=== PATIENT | male | born 1965 ===

== ENCOUNTER → 2020-09-25 12:35 | Outpatient (BNVA) | payer SELFPAY | PROVIDERS: PCP Internal Medicine; Visit Provider Physician Assistant | DX: Z02.79 Encounter for issue of other medical certificate (principal) ==

== ENCOUNTER 2022-10-09 09:58 | Outpatient (AMB) | payer OTHER, SELFPAY ==
--- NOTE | 2022-10-09 10:14 | MHC.PC.OV ---
Vital Signs 10/09/22 10:16 Height 5 ft 9 in Weight 207 lb BMI 30.6 BP 114/62 Blood Pressure Location Lt brachial Position Sitting Pulse 83 Pulse Source Pulse Oximeter Pulse Oximetry (%) 96 Oxygen Delivery Method Room Air Intake Visit Reasons: Med review Intake Note: Patient is here to follow up on medication review. 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 Accompanied by: Self / Same As Patient Allergies penicillin V Allergy (Unknown, Verified 10/17/22 14:17) Itching Penicillins [PENICILLINS] Allergy (Unknown, Verified 10/17/22 14:17) ITCHING enalapril Adverse Reaction (Intermediate, Verified 10/17/22 14:17) headaches Medication List - Last Reconciled 10/17/22 by Rey Casiano MD aspirin (Adult Low Dose Aspirin) 81 mg PO DAILY blood sugar diagnostic As directed blood-glucose meter As directed enalapril maleate 20 mg PO DAILY hydrochlorothiazide 25 mg PO DAILY metformin 850 mg PO BID Tobacco use date assessed: 10/09/22 Dental Screening Dental Screen Date: 10/09/22 Did you have a dental visit in the last 12 months?: No Did you have a dental problem in the last 6 months where you did not have access to dental care?: No Was dental information given to patient?: Patient has dentist HPI Med review HPI Details 57-year-old male presents to the office for a follow-up on his blood pressure . He is compliant with medications and not reporting any side effects. Able to function and do all activities of daily living. Not compliant with diet or exercise. [facility] Medical History Chronic neck pain Diabetes mellitus Essential hypertension Surgical History History of hernia surgery Family History Mother Asthma High blood pressure Father Cancer Prostate cancer High blood pressure Social History Housing: House Alcohol intake: current Alcohol intake frequency: holidays/special occasions only Patient Tobacco Use Status: Never used Tobacco e-Cigarette/Vaping Use: Never Used Second Hand Smoke Exposure: No service: No Current occupational status: employed Cognitive needs: No Hearing needs: No Vision needs: Yes (Glasses) Questionnaire PHQ-9 Over the last 2 weeks, how often have you been bothered by any of the following problems? 1. Little interest or pleasure in doing things: not at all 2. Feeling down, depressed, or hopeless: not at all 3. Trouble falling or staying asleep, or sleeping too much: not at all 4. Feeling tired or having little energy: not at all 5. Poor appetite or overeating: not at all 6. Feeling bad about yourself - or that you are a failure or have let yourself or your family down: not at all 7. Trouble concentrating on things, such as reading the newspaper or watching television: not at all 8. Moving or speaking so slowly that other people could have noticed. Or the opposite - being so fidgety or restless that you have been moving around a lot more than usual: not at all 9. Thoughts that you would be better off or of hurting yourself in some way: not at all Total score: 0 Depression Screening Interpretation: Negative Source: Developed by Drs. Cas Lockett, Maggie Bradford, Felice Sr and colleagues, with an educational mansi from [employer]. Thrive Questionnaire Date Thrive assessed: 10/09/22 I am a: Patient What is your living situation today?: I have a steady place to live Within the past 12 months, did the food you bought not last and you didn't have the money to get more?: Never true Within the past 12 months, did you worry whether your food would run out before you got money to buy more?: Never true Do you have trouble paying for medicines?: No Do you have trouble getting transportation to medical appointments?: No Do you have trouble paying your heating and electricity bill?: No Do you have trouble taking care of your child, family member or friend?: No Do you have trouble with day-to-day activities such as bathing, preparing meals, shopping, managing finances, etc.?: No Are you currently unemployed and looking for a job?: No Are you interested in more education?: No Currently or been in a relationship where the following occur: no concerns reported AUDIT C Alcohol Use Questionnaire (AUDIT-C) 1. How often do you have a drink containing alcohol?: Monthly or less 2. How many drinks containing alcohol do you have on a typical day when you are drinking?: 1 or 2 Total Score: 1 CHRISTOPHER-7 AMB Questionnaire CHRISTOPHER-7 Date CHRISTOPHER - 7 assessed: 10/09/22 Feeling nervous, anxious, or on edge: 0 = Not at all Not being able to stop or control worryin = Not at all Worrying too much about different things: 0 = Not at all Trouble relaxin = Not at all Being so restless that it is hard to sit still: 0 = Not at all Becoming easily annoyed or irritable: 0 = Not at all Feeling afraid as if something awful might happen: 0 = Not at all Total CHRISTOPHER-7 score (0-4 normal; 5-9 mild; 10-14 moderate; 15-21 severe): 0 Source: Developed by Drs. Cas Lockett, Maggie Bradford, Felice Sr and colleagues, with an educational mansi from [employer]. Physical exam (Primary Care) Vital Signs: Last Vital Signs Pulse 83 10/09/22 10:16 BP 114/62 10/09/22 10:16 Pulse Ox 96 10/09/22 10:16 Oxygen Delivery Method Room Air 10/09/22 10:16 BMI result Body Mass Index 30.6 Tobacco/Smoking Status: Tobacco use Status Tobacco use date assessed 10/09/22 10/09/22 10:21 Patient Tobacco Use Status Never used Tobacco 10/09/22 10:21 e-Cigarette/Vaping Use Never Used 10/09/22 10:21 PHQ-9: PHQ-9 Score PHQ-9: Total score 0 10/09/22 10:21 Depression Screening Interpretation: Negative Thrive Assessment: Date of Thrive Assessment Date Thrive assessed 10/09/22 10/09/22 10:21 Currently or been in a relationship where the following occur: no concerns reported Const General: cooperative, healthy appearing and comfortable HENMT Head: Yes normal to inspection and Yes atraumatic Eyes General: appearance normal, both eyes and all related structures Neck Neck: Yes normal visual inspection and Yes full ROM Chest Chest palpation & inspection: normal inspection of the chest Resp Effort & Inspection: normal respiratory effort Auscultation: clear to auscultation bilaterally Cardio Jugular venous distension: no JVD Palpation: normal PMI Rate: regular rate Heart sounds: S1 normal heart sound present and S2 normal heart sound present GI Palpation (GI): Soft to palpation and No hepatosplenomegaly present Extrem General: Yes normal to inspection and Yes full ROM Results AMB Hemoglobin A1c AMB Hemoglobin A1c 6.3 % Last Edit by ANTHONY Mortensen on 10/09/22 10:36 Results Reviewed Results Reviewed: Laboratory Last Values Hgb A1c (Clinic) 6.3 % (4.0-6.0) H 10/09/22 10:22 Assessment and Plan Assessment & Plan (1) Diabetes mellitus: Code(s): E11.9 - Type 2 diabetes mellitus without complications Plan: Continue medications at same dosage. (2) Essential hypertension: Code(s): I10 - Essential (primary) hypertension Plan: Blood work has been ordered. Will call with results. Orders: Orders Basic Metabolic Panel 10/09/22 E11.9 - Type 2 diabetes mellitus without complications, I10 - Essential (primary) hypertension Complete Blood Count no Diff 10/09/22 E11.9 - Type 2 diabetes mellitus without complications, I10 - Essential (primary) hypertension Liver Panel 10/09/22 E11.9 - Type 2 diabetes mellitus without complications, I10 - Essential (primary) hypertension Lipid Panel 10/09/22 E11.9 - Type 2 diabetes mellitus without complications, I10 - Essential (primary) hypertension Thyroid Stimulating Hormone 10/09/22 E11.9 - Type 2 diabetes mellitus without complications, I10 - Essential (primary) hypertension Hemoglobin A1c 10/09/22 E11.9 - Type 2 diabetes mellitus without complications, I10 - Essential (primary) hypertension Microalbumin, Random (w Creat) 10/09/22 E11.9 - Type 2 diabetes mellitus without complications, I10 - Essential (primary) hypertension UA and rflx microscopic 10/09/22 E11.9 - Type 2 diabetes mellitus without complications, I10 - Essential (primary) hypertension AMB Hemoglobin A1c 10/09/22 E11.9 - Type 2 diabetes mellitus without complications Medications: New hydrochlorothiazide 25 mg PO DAILY 90 tabs 1RF Refilled enalapril maleate 20 mg PO DAILY 90 tabs 1RF metformin 850 mg PO BID 180 tabs 1RF Coding Level of Care Code Est Pt Level 3 (27400) Diagnoses Diabetes mellitus E11.9 Essential hypertension I10
[2022-10-09 10:16] VITALS: BP 114/62; PULSE 83; O2SAT 96; BMI 30.6
== END 2022-10-09 10:40 | disposition home or self-care (01) ==
PROVIDERS: Visit Provider Internal Medicine
DX: E11.9 Type 2 diabetes mellitus without complications (principal)
CPT/HCPCS: 83036; 99213

== ENCOUNTER 2022-10-09 10:51 | Outpatient (REF) | payer OTHER, SELFPAY | END 2022-10-09 10:52 | disposition home or self-care (01) | LOC: HO.LAB 10:51 | PROVIDERS: PCP Internal Medicine; Visit Provider Internal Medicine | DX: E11.9 Type 2 diabetes mellitus without complications (principal); I10 Essential (primary) hypertension | CPT/HCPCS: 36415; 80048; 80061; 80076; 81003; 82043; 83036; 84443; 85027 ==

== ENCOUNTER 2022-11-07 14:05 | Outpatient (AMB) | payer OTHER, SELFPAY ==
[2022-11-07 14:10] VITALS: BP 126/82; PULSE 74; O2SAT 96; BMI 30.4
--- NOTE | 2022-11-07 14:10 | MHC.PC.OV ---
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 Required: No Allergies penicillin V Allergy (Unknown, Verified 11/07/22 14:23) Itching Penicillins [PENICILLINS] Allergy (Unknown, Verified 11/07/22 14:23) ITCHING enalapril Adverse Reaction (Intermediate, Verified 11/07/22 14:23) headaches Medication List - Last Reconciled 11/07/22 by STIVEN Flood aspirin (Adult Low Dose Aspirin) 81 mg PO DAILY blood sugar diagnostic As directed blood-glucose meter As directed enalapril maleate 20 mg PO DAILY hydrochlorothiazide 25 mg PO DAILY metformin 850 mg PO BID Tobacco use date assessed: 11/07/22 Dental Screening Dental Screen Date: 11/07/22 Did you have a dental visit in the last 12 months?: No Did you have a dental problem in the last 6 months where you did not have access to dental care?: No HPI HPI Comments History of Present Illness Details 49-year-old male past medical history significant for diabetes mellitus, hypertension and chronic neck pain x 5 years. Patient presents today for transfer of care. Patient denies any acute concerns. Complete blood work obtained in October reviewed with patient. Hemoglobin A1c 6.1%. Patient reports he checks his blood sugar every morning in his sugars run 114-115. Blood pressure below goal today 126/82. [facility] Medical History Chronic neck pain Diabetes mellitus Essential hypertension Surgical History History of hernia surgery Family History Mother Asthma High blood pressure Father Cancer Prostate cancer High blood pressure Social History Housing: House Alcohol intake: current Alcohol intake frequency: holidays/special occasions only Patient Tobacco Use Status: Never used Tobacco e-Cigarette/Vaping Use: Never Used Second Hand Smoke Exposure: No service: No Current occupational status: employed Cognitive needs: No Hearing needs: No Vision needs: Yes (Glasses) Questionnaire PHQ-9 Over the last 2 weeks, how often have you been bothered by any of the following problems? 1. Little interest or pleasure in doing things: not at all 2. Feeling down, depressed, or hopeless: not at all 3. Trouble falling or staying asleep, or sleeping too much: not at all 4. Feeling tired or having little energy: not at all 5. Poor appetite or overeating: not at all 6. Feeling bad about yourself - or that you are a failure or have let yourself or your family down: not at all 7. Trouble concentrating on things, such as reading the newspaper or watching television: not at all 8. Moving or speaking so slowly that other people could have noticed. Or the opposite - being so fidgety or restless that you have been moving around a lot more than usual: not at all 9. Thoughts that you would be better off or of hurting yourself in some way: not at all Total score: 0 Depression Screening Interpretation: Negative Source: Developed by Drs. Cas Lockett, Maggie Bradford, Felice Sr and colleagues, with an educational mansi from [employer]. Thrive Questionnaire Date Thrive assessed: 10/09/22 I am a: Patient What is your living situation today?: I have a steady place to live Within the past 12 months, did the food you bought not last and you didn't have the money to get more?: Never true Within the past 12 months, did you worry whether your food would run out before you got money to buy more?: Never true Do you have trouble paying for medicines?: No Do you have trouble getting transportation to medical appointments?: No Do you have trouble paying your heating and electricity bill?: No Do you have trouble taking care of your child, family member or friend?: No Do you have trouble with day-to-day activities such as bathing, preparing meals, shopping, managing finances, etc.?: No Are you currently unemployed and looking for a job?: No Are you interested in more education?: No Currently or been in a relationship where the following occur: no concerns reported AUDIT C Alcohol Use Questionnaire (AUDIT-C) 1. How often do you have a drink containing alcohol?: Monthly or less 2. How many drinks containing alcohol do you have on a typical day when you are drinking?: 1 or 2 3. How often do you have six or more drinks on one occasion?: Never Total Score: 1 CHRISTOPHER-7 AMB Questionnaire CHRISTOPHER-7 Date CHRISTOPHER - 7 assessed: 11/07/22 Feeling nervous, anxious, or on edge: 1 = Several days Not being able to stop or control worryin = Several days Worrying too much about different things: 1 = Several days Trouble relaxin = Several days Being so restless that it is hard to sit still: 1 = Several days Becoming easily annoyed or irritable: 0 = Not at all Feeling afraid as if something awful might happen: 0 = Not at all Total CHRISTOPHER-7 score (0-4 normal; 5-9 mild; 10-14 moderate; 15-21 severe): 5 Source: Developed by Drs. Cas Lockett, Maggie Bradford, Felice Sr and colleagues, with an educational mansi from [employer]. Review of Systems Const Denies chills, Denies fatigue, Denies fever(s) and Denies poor appetite Eyes Denies no additional complaints ENT Reports Normal hearing present Card Denies chest pain, Denies syncope, Denies rapid heart rate and Denies dyspnea Resp Denies cough and Denies dyspnea GI Denies change in stool character, Denies constipation, Denies diarrhea, Denies nausea and Denies vomiting Denies dysuria, Denies urinary frequency and Denies urinary urgency Neuro Reports Normal hearing present, Denies confusion and Denies syncope Psych Denies confusion Endo Denies fatigue Physical exam (Primary Care) Vital Signs: Last Vital Signs Pulse 74 11/07/22 14:10 BP 126/82 11/07/22 14:10 Pulse Ox 96 11/07/22 14:10 Oxygen Delivery Method Room Air 11/07/22 14:10 BMI result Body Mass Index 30.4 Tobacco/Smoking Status: Tobacco use Status Tobacco use date assessed 11/07/22 11/07/22 14:11 Patient Tobacco Use Status Never used Tobacco 11/07/22 14:11 e-Cigarette/Vaping Use Never Used 11/07/22 14:11 PHQ-9: PHQ-9 Score PHQ-9: Total score 0 11/07/22 14:19 Depression Screening Interpretation: Negative Thrive Assessment: Date of Thrive Assessment Date Thrive assessed 10/09/22 11/07/22 14:11 Currently or been in a relationship where the following occur: no concerns reported Const General: No confusion Orientation/consciousness: No confusion HENMT Head: Yes normocephalic and Yes atraumatic Eyes Conjunctivae: conjunctivae normal Chest Chest palpation & inspection: normal inspection of the chest Resp Effort & Inspection: normal respiratory effort Auscultation: clear to auscultation bilaterally, no crackles, no rhonchi and no wheezes Cardio Rate: regular rate Rhythm: regular rhythm Heart sounds: S1 normal heart sound present and S2 normal heart sound present GI Inspection: Yes normal to inspection Neuro General: No confusion Cranial nerves: Yes Normal hearing present Extrem General: No edema Assessment and Plan Assessment & Plan (1) Diabetes mellitus: Code(s): E11.9 - Type 2 diabetes mellitus without complications Plan: Continue on metformin 850 mg b.i.d. Patient educated to decrease the amount of carbohydrate intake such as pasta, bread, rice and potatoes are all sugar in addition to the sweet stuff. Remember that fruits are good but they also have sugar.Hemoglobin A1c goal of less than 6.5% (2) Essential hypertension: Code(s): I10 - Essential (primary) hypertension Plan: Continue on hydrochlorothiazide 25 mg and enalapril 20 mg daily. Follow low-salt diet and exercise. Blood pressure goal less than 140/90. (3) Chronic neck pain: Code(s): M54.2 - Cervicalgia; G89.29 - Other chronic pain Plan: Patient reports has not any imaging completed of his neck offered x-ray of the C-spine and physical therapy. 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 Patient declined PT and xray at this time. Can take Tylenol or ibuprofen as needed for the pain. Plan Follow-up in 6 months. Please obtain fasting blood work prior to follow-up appointment. Orders: Orders Comprehensive [place]. Panel Fast 5 Months E11.9 - Type 2 diabetes mellitus without complications Hemoglobin A1c 5 Months E11.9 - Type 2 diabetes mellitus without complications Lipid Panel 5 Months E11.9 - Type 2 diabetes mellitus without complications TSH reflex Free T4 5 Months Z13.29 - Encounter for screening for other suspected endocrine disorder Complete Blood Count Auto Diff 5 Months Z13.0 - Encounter for screening for diseases of the blood and blood-forming organs and certain disorders involving the immune mechanism Coding Level of Care Code Est Pt Level 3 (78590) Diagnoses Diabetes mellitus E11.9 Essential hypertension I10 Chronic neck pain M54.2; G89.29
== END 2022-11-07 14:43 | disposition home or self-care (01) ==
PROVIDERS: PCP Internal Medicine; Visit Provider Nurse Practitioner Family
DX: E11.9 Type 2 diabetes mellitus without complications (principal); I10 Essential (primary) hypertension; M54.2 Cervicalgia; G89.29 Other chronic pain
CPT/HCPCS: 99213

== ENCOUNTER 2022-11-14 09:41 | Outpatient (REF) | payer OTHER, SELFPAY ==
--- NOTE | ~2022-11-14 | XR_ITS ---
EXAMINATION: XR CERVICAL SPINE CLINICAL INFORMATION: Cervicalgia. COMPARISON: Radiographs dated 10/25/2010. TECHNIQUE: Frontal, odontoid, lateral and swimmer's views of the cervical spine were obtained. FINDINGS: Vertebral body heights are normal. There is a slight cervical dextroscoliosis. At C3-C4, there is mild posterior disc space narrowing. At C5-C6, there is a 2 mm anterolisthesis. At C6-C7, there is moderate to marked disc space narrowing. No acute fracture or spondylolisthesis is seen. There is multi-level cervical spondylosis and facet arthropathy. The dens is intact. No prevertebral soft tissue swelling is seen. XR/XR cervical spine 2V IMPRESSION: There is multi-level cervical degenerative disc disease, spondylosis and facet arthropathy. Degenerative disc disease is most pronounced at C6-C7, where it is moderately severe.
== END 2022-11-14 09:42 | disposition home or self-care (01) ==
LOC: HO.XRAY 09:41
PROVIDERS: PCP Nurse Practitioner Family; Visit Provider Nurse Practitioner Family
DX: M54.2 Cervicalgia (principal); G89.29 Other chronic pain
CPT/HCPCS: 72040

== ENCOUNTER 2023-03-18 10:52 | Outpatient (AMB) | payer SELFPAY ==
[2023-03-18 11:44] VITALS: BP 122/70; PULSE 93; TEMP 36.3; O2SAT 96; BMI 30.6
--- NOTE | 2023-03-18 11:44 | MHC.OFFWIV ---
Intake Vital Signs 03/18/23 11:44 Height 5 ft 9 in Weight 207 lb BMI 30.6 BP 122/70 Blood Pressure Location Lt brachial Position Sitting Pulse 93 Pulse Source Pulse Oximeter Temp 97.3 F Temp Source Temporal Artery Scan Pulse Oximetry (%) 96 Oxygen Delivery Method Room Air Intake Visit Reasons: EST/dizzy and neck pressure (lobby masked) Intake Note: pt is here today for dizzy and neck pressure started thursday Patient Tobacco Use Status: Never used Tobacco Allergies penicillin V Allergy (Unknown, Verified 03/18/23 12:01) Itching Penicillins [PENICILLINS] Allergy (Unknown, Verified 03/18/23 12:01) ITCHING enalapril Adverse Reaction (Intermediate, Verified 03/18/23 12:01) headaches Medication List - Last Reconciled 03/18/23 by STIVEN Irwin- aspirin (Adult Low Dose Aspirin) 81 mg PO DAILY blood sugar diagnostic As directed blood-glucose meter As directed enalapril maleate 20 mg PO DAILY hydrochlorothiazide 25 mg PO DAILY metformin 850 mg PO BID Do you need a note to return to daycare/school/sports/work: Yes HPI HPI Comments History of Present Illness Details here today for acute on chronic neck pain described as pressure in back of neck that spreads to forehead this started on thursday alleviating factors: nothing did see pcp 11/2022 for this, xray done which showed: multi-level cervical degenerative disc disease, spondylosis and facet arthropathy. Degenerative disc disease is most pronounced at C6-C7, where it is moderately severe. rec for PT at that time, he declined as the pain did go away. [facility], [facility] Medical History Chronic neck pain Diabetes mellitus Essential hypertension Surgical History History of hernia surgery Family History Mother Asthma High blood pressure Father Cancer Prostate cancer High blood pressure Social History Housing: House Alcohol intake: current Alcohol intake frequency: holidays/special occasions only Patient Tobacco Use Status: Never used Tobacco e-Cigarette/Vaping Use: Never Used Second Hand Smoke Exposure: No service: No Current occupational status: employed Cognitive needs: No Hearing needs: No Vision needs: Yes (Glasses) Review of Systems Const All systems reviewed & are unremarkable except as noted in HPI and below Physical Exam Vital Signs: Last Vital Signs Temp 97.3 F 03/18/23 11:44 Pulse 93 03/18/23 11:44 BP 122/70 03/18/23 11:44 Pulse Ox 96 03/18/23 11:44 Oxygen Delivery Method Room Air 03/18/23 11:44 BMI result Body Mass Index 30.6 Const Orientation/consciousness: patient oriented x3 Neuro General: patient oriented x3, moves all extremities and no focal motor deficits Assessment & Plan Assessment & Plan (1) Chronic neck pain: Code(s): M54.2 - Cervicalgia; G89.29 - Other chronic pain Plan . Patient Instructions: discussed w/ patient xray from november and rec for PT he would like to be referred to [facility] [place] pain mgmt message sent to [facility] [place] wg front office to place this referral he was made aware Coding Level of Care Code Est Pt Level 3 (64052) Diagnoses Chronic neck pain M54.2; G89.29
== END 2023-03-18 12:50 | disposition home or self-care (01) ==
PROVIDERS: PCP Nurse Practitioner Family; Visit Provider Nurse Practitioner Family
DX: M54.2 Cervicalgia (principal); G89.29 Other chronic pain
CPT/HCPCS: 99213

== ENCOUNTER 2023-04-17 13:54 | Outpatient (AMB) | payer OTHER, SELFPAY ==
[2023-04-17 14:11] VITALS: BP 138/81; PULSE 113; RESP 18; O2SAT 97; BMI 30.8
--- NOTE | 2023-04-17 14:11 | MHC.OFFVIS ---
Intake Vital Signs 04/17/23 14:11 Height 5 ft 9 in Weight 208 lb 8 oz BMI 30.8 BP 138/81 Blood Pressure Location Lt brachial Position Sitting Respiration 18 Pulse 113 H Pulse Source Pulse Oximeter Pulse Oximetry (%) 97 Oxygen Delivery Method Room Air Intake Visit Reasons: Spondylosis wo myelopathy or radiculopathy Allergies penicillin V Allergy (Unknown, Verified 04/17/23 14:01) Itching Penicillins [PENICILLINS] Allergy (Unknown, Verified 04/17/23 14:01) ITCHING enalapril Adverse Reaction (Intermediate, Verified 04/17/23 14:01) headaches HPI HPI Comments History of Present Illness Details Rahul is a very pleasant 57 year old male who presents to the office today for evaluation and management of his chronic cervical neck pain. Patient reports he has been suffering with midline neck pain, worse with ROM of the neck, for appprox 3 years. He denies inciting injury or trauma to the neck. Denies radiation of the pain down either arm. Denies numbness, tingling, shooting pain to either arm. Patient currently rates pain as 7/10, constant throughout the day and night. He is not taking any medications for the pain, OTC or prescribed other than application of topical salonpas patches which help a little . He has not attempted PT, chiropractic manipulation, acupuncture or massage. In terms of muscle damage condition is described as squeezing, pressure. Pain is negatively impacting patients general activity, work, sleep and activities of daily living. Recent Xray reviewed, results as per below. Patient with NIDDM, 10/09/2022. A1c 6.3% [facility] Medical History Chronic neck pain Diabetes mellitus Essential hypertension Surgical History History of hernia surgery Family History Mother Asthma High blood pressure Father Cancer Prostate cancer High blood pressure Social History Housing: House Alcohol intake: current Alcohol intake frequency: holidays/special occasions only Patient Tobacco Use Status: Never used Tobacco e-Cigarette/Vaping Use: Never Used Second Hand Smoke Exposure: No service: No Current occupational status: employed Cognitive needs: No Hearing needs: No Vision needs: Yes (Glasses) Review of Systems Const All systems reviewed & are unremarkable except as noted in HPI and below Physical Exam Vital Signs: Last Vital Signs Pulse 113 H 04/17/23 14:11 Resp 18 04/17/23 14:11 BP 138/81 04/17/23 14:11 Pulse Ox 97 04/17/23 14:11 Oxygen Delivery Method Room Air 04/17/23 14:11 BMI result Body Mass Index 30.8 General: awake, alert, oriented. Answers questions appropriately. Fully engaged in examination. Skin: warm, dry, intact HEENT: Normocephalic. Hearing intact. Cardiac: External chest normal in appearance. Respiratory: No cough, audible wheezing or stridor. Abdomen: without gross distension. MS: No obvious swelling or deformities. Cervical Spine: Visible inspection without gross abnormality Nontender to palpation over paraspinal muscles Minimally tender to palpation over midline cervical vertebrae Decreased cervical ROM in all planes with moderate pain with extension Spurling compression test positive Elvey's tension test negative Lhermitte's test negative. BUE strength 5/5 DTR symmetrical and intact bilaterally. 2+ radial pulses. Neurological: Oriented to person, place, time and situation. Thought process intact. No gait abnormalities appreciated. Psychiatric: Appropriate mood and affect. Good judgment and insight. Results Reviewed Results Reviewed: 11/14/2022 XR/XR cervical spine 2V FINDINGS: Vertebral body heights are normal. There is a slight cervical dextroscoliosis. At C3-C4, there is mild posterior disc space narrowing. At C5-C6, there is a 2 mm anterolisthesis. At C6-C7, there is moderate to marked disc space narrowing. No acute fracture or spondylolisthesis is seen. There is multi-level cervical spondylosis and facet arthropathy. The dens is intact. No prevertebral soft tissue swelling is seen. IMPRESSION: There is multi-level cervical degenerative disc disease, spondylosis and facet arthropathy. Degenerative disc disease is most pronounced at C6-C7, where it is moderately severe. Assessment & Plan Assessment & Plan (1) Cervical spondylosis: Code(s): M47.812 - Spondylosis without myelopathy or radiculopathy, cervical region (2) Chronic neck pain: Code(s): M54.2 - Cervicalgia; G89.29 - Other chronic pain Plan Rahul is a very pleasant 57 year old male who presented to the office today for evaluation and management of his chronic neck pain. Patient suffering with axial pain secondary to cervical spondylosis/facet arthropathy. Order placed for PT eval and treat Tylenol arthritis 650mg po Q8H as needed Lidocaine 5% topical patches, apply to most painful area, on for 12 hours off for 12 hours. Discussed options for treatment including diagnostic interventional testing, epidural steroid injections, peripheral nerve stimulation with Sprint, RFA and more permanent neuromodulation. If pain persists after PT will plan for Fluoroscopy guided diagnostic bilateral C5 C6 C7 MBBS with local anesthetic. All questions and concerns have been answered and patient agrees with the plan. Follow up after PT, sooner if needed. Orders: Orders PT Evaluation and Treatment Today G89.29 - Other chronic pain, M47.812 - Spondylosis without myelopathy or radiculopathy, cervical region, M54.2 - Cervicalgia Medications: New acetaminophen ER (Tylenol Arthritis Pain) no to exceed three tabs daily. 650 mg PO Q8H PRN 90 tabs 0RF pain lidocaine 5% leave on most painful area for up to 12 hrs 1 patch topical DAILY 30 ea 3RF Coding Level of Care Code New Pt Level 4 (64383) Diagnoses Cervical spondylosis M47.812 Chronic neck pain M54.2; G89.29
== END 2023-04-17 14:26 | disposition home or self-care (01) ==
PROVIDERS: PCP Nurse Practitioner Family; Visit Provider Registered Nurse Emergency
DX: M47.812 Spondylosis without myelopathy or radiculopathy, cervical region (principal); M54.2 Cervicalgia; G89.29 Other chronic pain
CPT/HCPCS: 99204

== ENCOUNTER → 2023-04-17 13:54 | Outpatient (BNVA) | payer OTHER, SELFPAY | PROVIDERS: PCP Nurse Practitioner Family; Visit Provider Registered Nurse Emergency | DX: M47.812 Spondylosis without myelopathy or radiculopathy, cervical region (principal); G89.29 Other chronic pain; M54.2 Cervicalgia | CPT/HCPCS: 99202 ==

== ENCOUNTER 2023-05-15 13:03 | Outpatient (AMB) | payer OTHER, SELFPAY ==
--- NOTE | 2023-05-15 13:09 | A.OFFPC_ITS ---
Vital Signs 05/15/23 13:13 Height 5 ft 9 in Weight 212 lb 4 oz BMI 31.3 BP 140/60 H Blood Pressure Location Lt brachial Position Sitting Pulse 117 H Pulse Source Pulse Oximeter Pulse Oximetry (%) 97 Oxygen Delivery Method Room Air Intake Visit Reasons: DM, HTN, chronic neck pain Intake Note: Patient is here to follow up on DM, HTN, Chronic neck pain. 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 Accompanied by: Self / Same As Patient Allergies penicillin V Allergy (Unknown, Verified 05/15/23 13:31) Itching Penicillins [PENICILLINS] Allergy (Unknown, Verified 05/15/23 13:31) ITCHING Medication List - Last Reconciled 05/15/23 by AMY Irwin acetaminophen ER (Tylenol Arthritis Pain) 650 mg PO Q8H PRN aspirin (Adult Low Dose Aspirin) 81 mg PO DAILY blood sugar diagnostic As directed blood-glucose meter As directed enalapril maleate 20 mg PO DAILY hydrochlorothiazide 25 mg PO DAILY lidocaine 5% 1 patch topical DAILY metformin 850 mg PO BID Tobacco use date assessed: 05/15/23 Dental Screening Dental Screen Date: 05/15/23 Did you have a dental visit in the last 12 months?: No Did you have a dental problem in the last 6 months where you did not have access to dental care?: No Was dental information given to patient?: Patient has dentist HPI HPI Comments History of Present Illness Details 58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 Colonoscopy: maybe needs referral, he thinks he has had a colonoscopy at [facility]. I can not find the consult note from GI or the colonoscopy report. Therefore a new referral will be placed as use turning 59 next May. Specialists: Pain Mgmt [facility] Medical History Chronic neck pain Diabetes mellitus Essential hypertension Surgical History History of hernia surgery Family History Mother Asthma High blood pressure Father Cancer Prostate cancer High blood pressure Social History Housing: House Alcohol intake: current Alcohol intake frequency: holidays/special occasions only Patient Tobacco Use Status: Never used Tobacco e-Cigarette/Vaping Use: Never Used Second Hand Smoke Exposure: No service: No Current occupational status: employed Cognitive needs: No Hearing needs: No Vision needs: Yes (Glasses) Questionnaire PHQ-9 Over the last 2 weeks, how often have you been bothered by any of the following problems? 1. Little interest or pleasure in doing things: not at all 2. Feeling down, depressed, or hopeless: not at all 3. Trouble falling or staying asleep, or sleeping too much: not at all 4. Feeling tired or having little energy: not at all 5. Poor appetite or overeating: not at all 6. Feeling bad about yourself - or that you are a failure or have let yourself or your family down: not at all 7. Trouble concentrating on things, such as reading the newspaper or watching television: not at all 8. Moving or speaking so slowly that other people could have noticed. Or the opposite - being so fidgety or restless that you have been moving around a lot more than usual: not at all 9. Thoughts that you would be better off or of hurting yourself in some way: not at all Total score: 0 Depression Screening Interpretation: Negative Depression Screening Done: Yes 58658 - PHQ-9 Billing: Yes Source: Developed by Drs. Cas Lockett, Maggie Bradford, Felice Sr and colleagues, with an educational mansi from [employer]. Thrive Questionnaire Date Thrive assessed: 05/15/23 I am a: Patient What is your living situation today?: I have a steady place to live Within the past 12 months, did the food you bought not last and you didn't have the money to get more?: Never true Within the past 12 months, did you worry whether your food would run out before you got money to buy more?: Never true Do you have trouble paying for medicines?: No Do you have trouble getting transportation to medical appointments?: No Do you have trouble paying your heating and electricity bill?: No Do you have trouble taking care of your child, family member or friend?: No Do you have trouble with day-to-day activities such as bathing, preparing meals, shopping, managing finances, etc.?: No Are you currently unemployed and looking for a job?: No Are you interested in more education?: No Currently or been in a relationship where the following occur: no concerns reported THRIVE Score: 0 AUDIT C Alcohol Use Questionnaire (AUDIT-C) 1. How often do you have a drink containing alcohol?: Monthly or less 2. How many drinks containing alcohol do you have on a typical day when you are drinking?: 1 or 2 Total Score: 1 Score Reviewed/Action Taken: Yes CHRISTOPHER-7 AMB Questionnaire CHRISTOPHER-7 Date CHRISTOPHER - 7 assessed: 05/15/23 Feeling nervous, anxious, or on edge: 0 = Not at all Not being able to stop or control worryin = Not at all Worrying too much about different things: 0 = Not at all Trouble relaxin = Not at all Being so restless that it is hard to sit still: 0 = Not at all Becoming easily annoyed or irritable: 0 = Not at all Feeling afraid as if something awful might happen: 0 = Not at all Total CHRISTOPHER-7 score (0-4 normal; 5-9 mild; 10-14 moderate; 15-21 severe): 0 Source: Developed by Drs. Cas Lockett, Maggie Bradford, Felice Sr and colleagues, with an educational mansi from [employer]. CHRISTOPHER-7 Assessment Billing CHRISTOPHER-7 Assessment Tool: CHRISTOPHER-7 Assessment 47737 Review of Systems Const All systems reviewed & are unremarkable except as noted in HPI and below Physical exam (Primary Care) Vital Signs: Last Vital Signs Pulse 117 H 05/15/23 13:13 BP 140/60 H 05/15/23 13:13 Pulse Ox 97 05/15/23 13:13 Oxygen Delivery Method Room Air 05/15/23 13:13 BMI result Body Mass Index 31.3 BMI Assessment/Plan discussion: High BMI High, discussed plan: lifestyle Tobacco/Smoking Status: Tobacco use Status Tobacco use date assessed 05/15/23 05/15/23 13:12 Patient Tobacco Use Status Never used Tobacco 05/15/23 13:12 e-Cigarette/Vaping Use Never Used 05/15/23 13:12 PHQ-9: PHQ-9 Score PHQ-9: Total score 0 05/15/23 14:06 Depression Screening Interpretation: Negative Thrive Assessment: Date of Thrive Assessment Date Thrive assessed 05/15/23 05/15/23 13:12 Currently or been in a relationship where the following occur: no concerns reported Const Other: Awake alert oriented very pleasant Sclera is nonicteric Mucous membranes moist Regular rate and rhythm Lung sounds clear auscultation Bilateral lower extremities without edema, skin intact, pedal pulses within normal limits bilat, normal monofilament and vibratory sensations bilat Office Procedures Diabetic Foot Exam G9226 - Diabetic Foot Exam Results AMB Hemoglobin A1c AMB Hemoglobin A1c 6.9 % Last Edit by ANTHONY Mortensen on 05/15/23 13:38 Immunizations Boostrix Tdap 2.5 Lf unit-8 mcg-5 Lf/0.5 mL intramuscular syringe Performing Provider: DAI Irwin Performing Location: [facility] Administered by: Yanelis Redding CMA on 05/15/23 14:29 Dose Route Admin Location Dispensed Lot Number Expiration Date NDC City Supervisor 0.5 mL IM Left Deltoid 0.5 mL [id number] 03/11/25 [id number] [employer] VIS Given Date VIS Provided VIS Publication Date 05/15/23 Single Vaccine 20 Eligibility Eligibility Date Funding Source Not [facility] Eligible 05/15/23 Private Results Reviewed Results Reviewed: Laboratory Last Values Hgb A1c (Clinic) 6.9 % (4.0-6.0) H 05/15/23 13:12 Assessment and Plan Assessment & Plan (1) Hyperlipidemia associated with type 2 diabetes mellitus: Comment: Not currently on a statin. LDL goal is less than 70. We will repeat labs and bring him back to discuss this Code(s): E11.69 - Type 2 diabetes mellitus with other specified complication; E78.5 - Hyperlipidemia, unspecified (2) Diabetes mellitus type 2 with complications: Comment: HGB A1c 6.9% today which is up trending over the last year. He is maintained on metformin 850 p.o. b.i.d.. At this time we will continue him on this. Diabetic eye exam - done at [facility] in [place], [place]. May need to place a new referral. We will continue to follow On an Acei for renal protection Tdap today. Declines flu. Code(s): E11.8 - Type 2 diabetes mellitus with unspecified complications (3) Hypertension associated with type 2 diabetes mellitus: Comment: Goal of less than 130/80. His blood pressure is elevated above his goal today and this is even with recheck he is maintained on enalapril 20 mg which he states he is taking as directed. He monitors his blood pressure twice a day at home with a home cuffand reports that it is always within normal limits. The plan will be to have him continue his enalapril at the current dose, monitor his blood pressure twice a day and bring a log with him to his next visit in 2 weeks for me to review with him. Code(s): E11.59 - Type 2 diabetes mellitus with other circulatory complications; I15.2 - Hypertension secondary to endocrine disorders (4) Cervical spondylosis with radiculopathy: Comment: Followed by [facility] pain management currently and PT Code(s): M47.22 - Other spondylosis with radiculopathy, cervical region (5) Screening PSA (prostate specific antigen): Code(s): Z12.5 - Encounter for screening for malignant neoplasm of prostate Plan This note is constructed using voice recognition software. While every effort has been made to ensure accuracy in product manager financial services, still errors may have been included Sometimes, these errors may affect the content or meaning of the given sentence . Total time spent caring for the patient today was 60 minutes. This includes time spent before the visit reviewing the chart, time spent during the visit, and time spent after the visit on documentation Orders: Orders AMB Hemoglobin A1c Today E11.9 - Type 2 diabetes mellitus without complications Lipid Panel Today E11.59 - Type 2 diabetes mellitus with other circulatory complications, E11.69 - Type 2 diabetes mellitus with other specified complication, E11.8 - Type 2 diabetes mellitus with unspecified complications, E78.5 - Hyperlipidemia, unspecified, I15.2 - Hypertension secondary to endocrine disorders, M47.22 - Other spondylosis with radiculopathy, cervical region, Z12.5 - Encounter for screening for malignant neoplasm of prostate Vitamin B12 and Folate Today E11.59 - Type 2 diabetes mellitus with other circulatory complications, E11.69 - Type 2 diabetes mellitus with other specified complication, E11.8 - Type 2 diabetes mellitus with unspecified complications, E78.5 - Hyperlipidemia, unspecified, I15.2 - Hypertension secondary to endocrine disorders, M47.22 - Other spondylosis with radiculopathy, cervical region, Z12.5 - Encounter for screening for malignant neoplasm of prostate Complete Blood Count no Diff Today E11.59 - Type 2 diabetes mellitus with other circulatory complications, E11.69 - Type 2 diabetes mellitus with other specified complication, E11.8 - Type 2 diabetes mellitus with unspecified complications, E78.5 - Hyperlipidemia, unspecified, I15.2 - Hypertension secondary to endocrine disorders, M47.22 - Other spondylosis with radiculopathy, cervical region, Z12.5 - Encounter for screening for malignant neoplasm of prostate PSA, Ultra Sensitive Today E11.59 - Type 2 diabetes mellitus with other circulatory complications, E11.69 - Type 2 diabetes mellitus with other specified complication, E11.8 - Type 2 diabetes mellitus with unspecified complications, E78.5 - Hyperlipidemia, unspecified, I15.2 - Hypertension secondary to endocrine disorders, M47.22 - Other spondylosis with radiculopathy, cervical region, Z12.5 - Encounter for screening for malignant neoplasm of prostate Comprehensive [place]. Panel Fast Today E11.59 - Type 2 diabetes mellitus with other circulatory complications, E11.69 - Type 2 diabetes mellitus with other specified complication, E11.8 - Type 2 diabetes mellitus with unspecified complications, E78.5 - Hyperlipidemia, unspecified, I15.2 - Hypertension secondary to endocrine disorders, M47.22 - Other spondylosis with radiculopathy, cervical region, Z12.5 - Encounter for screening for malignant neoplasm of prostate Microalbumin, Random (w Creat) Today E11.59 - Type 2 diabetes mellitus with other circulatory complications, E11.69 - Type 2 diabetes mellitus with other specified complication, E11.8 - Type 2 diabetes mellitus with unspecified complications, E78.5 - Hyperlipidemia, unspecified, I15.2 - Hypertension secondary to endocrine disorders, M47.22 - Other spondylosis with radiculopathy, cervical region, Z12.5 - Encounter for screening for malignant neoplasm of prostate TSH reflex Free T4 Today E11.59 - Type 2 diabetes mellitus with other circulatory complications, E11.69 - Type 2 diabetes mellitus with other specified complication, E11.8 - Type 2 diabetes mellitus with unspecified complications, E78.5 - Hyperlipidemia, unspecified, I15.2 - Hypertension secondary to endocrine disorders, M47.22 - Other spondylosis with radiculopathy, cervical region, Z12.5 - Encounter for screening for malignant neoplasm of prostate AMB Diabetic Foot Exam Today E11.8 - Type 2 diabetes mellitus with unspecified complications TDaP Immunization Today Z23 - Encounter for immunization Referrals Gastroenterology Referral Z12.11 - Encounter for screening for malignant neoplasm of colon Review Flu Vaccine not done: patient reason Coding Level of Care Code Est Pt Level 5 (98996) Diagnoses Hyperlipidemia associated with type 2 diabetes mellitus E11.69; E78.5 Diabetes mellitus type 2 with complications E11.8 Hypertension associated with type 2 diabetes mellitus E11.59; I15.2 Cervical spondylosis with radiculopathy M47.22 Screening PSA (prostate specific antigen) Z12.5 CPT Codes Diabetic Foot Exam - CPT: G9226 - Diabetic Foot Exam ([id number]) Additional Codes CHRISTOPHER-7 Assessment Billing - CHRISTOPHER-7 Assessment Tool: CHRISTOPHER-7 Assessment [id number] ([id number])
[2023-05-15 13:13] VITALS: BP 140/60; PULSE 117; O2SAT 97; BMI 31.3
== END 2023-05-15 14:37 | disposition home or self-care (01) ==
PROVIDERS: PCP Nurse Practitioner Family; Visit Provider Nurse Practitioner Family
DX: E11.69 Type 2 diabetes mellitus with other specified complication (principal); E11.8 Type 2 diabetes mellitus with unspecified complications; E11.59 Type 2 diabetes mellitus with other circulatory complications; Z23 Encounter for immunization; E78.5 Hyperlipidemia, unspecified; I15.2 Hypertension secondary to endocrine disorders; M47.22 Other spondylosis with radiculopathy, cervical region; Z12.5 Encounter for screening for malignant neoplasm of prostate
CPT/HCPCS: 83036; 90471; 90715; 99215; G9226

== ENCOUNTER 2023-05-16 08:59 | Outpatient (REF) | payer OTHER, SELFPAY ==
[2023-05-16 10:19] LABS: Hematocrit 45.7 % (42.0-52.0); Hemoglobin 15.2 g/dl (14.0-18.0); Mean Corpuscular HGB Conc 33.3 g/dl (31.0-36.0); Mean Corpuscular Hemoglobin 29.9 pg (27.0-33.0); Mean Corpuscular Volume 89.8 fL (80.0-98.0); Mean Platelet Volume 11.9 fL (9.4-12.4); Platelet Count 255 X10*3/uL (160-400); Red Blood Count 5.09 X10*6/uL (4.60-5.80); Red Cell Distribution Width 12.8 % (11.0-16.0); White Blood Count 7.1 X10*3/uL (4.8-10.8)
[2023-05-16 10:38] LABS: Alanine Aminotransferase 39 U/L (0-40); Albumin Level 4.5 g/dL (3.5-5.0); Alkaline Phosphatase 79 U/L (39-117); Anion Gap 12 (12-20); Aspartate Amino Transferase 22 U/L (5-37); Bilirubin Total 0.5 mg/dL (0.0-1.0); Blood Urea Nitrogen 9 mg/dL (9-16); Calcium 9.6 mg/dL (8.4-10.2); Carbon Dioxide 26 mmol/L (22-29); Chloride 104 mmol/L (96-108); Cholesterol 189 mg/dL (<200); Estimated Glomerular Filt Rate > 60; Glucose Fasting 137 mg/dL (60-99); HDL Cholesterol 34 mg/dL (>40); LDL Cholesterol Calculated 89 mg/dL (<100); Potassium 4.1 mmol/L (3.3-5.1); Sodium 138 mmol/L (135-145); Triglycerides 333 mg/dL (<150)
[2023-05-16 10:53] LABS: TSH reflex Free T4 0.77 uIU/mL (0.32-4.0)
[2023-05-16 11:26] LABS: Folate 15.5 ng/mL (> or = 4.0); Vitamin B12 259 pg/mL (200-900)
[2023-05-16 11:31] LABS: Creatinine Urine 131.34 mg/dL; Microalbum/Creatinine Ratio Ur 8.3 ug/mg cr (<30)
[2023-05-20 18:59] LABS: PSA, Ultra Sensitive 2.64 ng/mL
== END 2023-05-16 09:00 | disposition home or self-care (01) ==
LOC: HO.LAB 08:59
PROVIDERS: PCP Nurse Practitioner Family; Visit Provider Nurse Practitioner Family
DX: M47.22 Other spondylosis with radiculopathy, cervical region (principal); E11.59 Type 2 diabetes mellitus with other circulatory complications; I15.2 Hypertension secondary to endocrine disorders; E11.8 Type 2 diabetes mellitus with unspecified complications; E11.69 Type 2 diabetes mellitus with other specified complication; E78.5 Hyperlipidemia, unspecified; Z12.5 Encounter for screening for malignant neoplasm of prostate
CPT/HCPCS: 36415; 80053; 80061; 82043; 82570; 82607; 82746; 84153; 84443; 85027

== ENCOUNTER 2023-05-29 14:57 | Outpatient (AMB) | payer OTHER, SELFPAY ==
--- NOTE | 2023-05-29 15:03 | MHC.PC.OV ---
Vital Signs 05/29/23 15:04 Height 5 ft 9 in Weight 213 lb BMI 31.5 BP 137/72 Blood Pressure Location Rt brachial Position Sitting Respiration 14 Pulse 75 Pulse Source Pulse Oximeter Temp 98.2 F Temp Source Temporal Artery Scan Pulse Oximetry (%) 96 Oxygen Delivery Method Room Air Intake Visit Reasons: 2 weeks 30min, fu HTN and Labs Intake Note: Patient is here to follow up on blood pressure and labs. Patient reports he has a home log of blood pressures. Agent Ticketing Gate Required: No Accompanied by: Self / Same As Patient Allergies penicillin V Allergy (Unknown, Verified 05/29/23 15:17) Itching Penicillins [PENICILLINS] Allergy (Unknown, Verified 05/29/23 15:17) ITCHING Medication List - Last Reconciled 05/29/23 by AMY Irwin acetaminophen ER (Tylenol Arthritis Pain) 650 mg PO Q8H PRN aspirin (Adult Low Dose Aspirin) 81 mg PO DAILY blood sugar diagnostic As directed blood-glucose meter As directed enalapril maleate 20 mg PO DAILY hydrochlorothiazide 25 mg PO DAILY lidocaine 5% 1 patch topical DAILY metformin 850 mg PO BID Tobacco use date assessed: 05/15/23 HPI HPI Comments History of Present Illness Details 58 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 Colonoscopy: 2014 Dr Reed, 5 year recall, overdue (2019), referral placed 05/2023 Specialists: Pain Mgmt Here today to follow up on chronic conditions. Labs from 05/16/2023 show a normal CBC, normal CMP, elevated triglycerides at 333, normal total cholesterol 189, LDL mildly elevated at 89, HDL low at 34, normal PSA, low normal vitamin B12 at 259, normal TSH, normal urine microalbumin. At last visit his blood pressure was elevated. He has been monitoring his BP at home. Log reviewed. SBP > 140 highest 160. DBP 70-90. [facility] Medical History (Updated 05/29/23 @ 15:40 by AMY Irwin) Chronic neck pain Diabetes mellitus Essential hypertension Surgical History History of hernia surgery Family History Mother Asthma High blood pressure Father Cancer Prostate cancer High blood pressure Social History Housing: House Alcohol intake: current Alcohol intake frequency: holidays/special occasions only Patient Tobacco Use Status: Never used Tobacco e-Cigarette/Vaping Use: Never Used Second Hand Smoke Exposure: No service: No Current occupational status: employed Cognitive needs: No Hearing needs: No Vision needs: Yes (Glasses) Questionnaire PHQ-9 Over the last 2 weeks, how often have you been bothered by any of the following problems? Depression Screening Interpretation: Negative Depression Screening Done: Yes Source: Developed by Drs. Cas Lockett, Maggie Bradford, Felice Sr and colleagues, with an educational mansi from [employer]. Thrive Questionnaire Date Thrive assessed: 05/15/23 Currently or been in a relationship where the following occur: no concerns reported THRIVE Score: 0 CHRISTOPHER-7 AMB Questionnaire CHRISTOPHER-7 Date CHRISTOPHER - 7 assessed: 05/15/23 Source: Developed by Drs. Cas Lockett, Maggie Bradford, Felice Sr and colleagues, with an educational mansi from [employer]. Physical exam (Primary Care) Vital Signs: Last Vital Signs Temp 98.2 F 05/29/23 15:04 Pulse 75 05/29/23 15:04 Resp 14 05/29/23 15:04 BP 137/72 05/29/23 15:04 Pulse Ox 96 05/29/23 15:04 Oxygen Delivery Method Room Air 05/29/23 15:04 BMI result Body Mass Index 31.5 BMI Assessment/Plan discussion: High BMI High, discussed plan: lifestyle Tobacco/Smoking Status: Tobacco use Status Tobacco use date assessed 05/15/23 05/29/23 15:11 Patient Tobacco Use Status Never used Tobacco 05/29/23 15:11 e-Cigarette/Vaping Use Never Used 05/29/23 15:11 Depression Screening Interpretation: Negative Thrive Assessment: Date of Thrive Assessment Date Thrive assessed 05/15/23 05/29/23 15:11 Currently or been in a relationship where the following occur: no concerns reported Const Other: Awake alert oriented very pleasant Sclera is nonicteric Mucous membranes moist Regular rate and rhythm Lung sounds clear auscultation Bilateral lower extremities without edema, skin intact, pedal pulses within normal limits bilat, normal monofilament and vibratory sensations bilat Assessment and Plan Assessment & Plan (1) Hypertension associated with type 2 diabetes mellitus: Comment: Goal of less than 130/80. Not at goal today or on home log plan: Increase enalapril from 20mg/day to 30mg/day. cont HCTZ 25 mg QD, monitor his blood pressure twice a day and bring a log with him to his next visit in 1-2 weeks for me to review with him. Code(s): E11.59 - Type 2 diabetes mellitus with other circulatory complications; I15.2 - Hypertension secondary to endocrine disorders (2) Diabetes mellitus type 2 with complications: Comment: HGB A1c 6.9% today which is up trending over the last year. He is maintained on metformin 850 p.o. b.i.d.. At this time we will continue him on this. His B12 was noted to be on the low end of normal at 259 on labs May 2023. Given that he is on metformin we will start him on B12 sublingual a 1000 mcg q.day. We will recheck this level in 3 months. Diabetic eye exam - done at [facility] in [place], [place]. May need to place a new referral. We will continue to follow On an Acei for renal protection Tdap 05/2023. Declines flu. Code(s): E11.8 - Type 2 diabetes mellitus with unspecified complications (3) Hyperlipidemia associated with type 2 diabetes mellitus: Comment: plan: Start atorvastatin 40mg QHS, LDL goal is less than 70. We will repeat labs and bring him back to discuss this in 3 months Code(s): E11.69 - Type 2 diabetes mellitus with other specified complication; E78.5 - Hyperlipidemia, unspecified Plan: This note is constructed using voice recognition software. While every effort has been made to ensure accuracy in artillery meteorological man, still errors may have been included Sometimes, these errors may affect the content or meaning of the given sentence . Total time spent caring for the patient today was 30 minutes. This includes time spent before the visit reviewing the chart, time spent during the visit, and time spent after the visit on documentation Orders: Orders Vitamin B12 3 Months E11.59 - Type 2 diabetes mellitus with other circulatory complications, E11.69 - Type 2 diabetes mellitus with other specified complication, E11.8 - Type 2 diabetes mellitus with unspecified complications, E78.5 - Hyperlipidemia, unspecified, I15.2 - Hypertension secondary to endocrine disorders Comprehensive Brant. Panel Fast 3 Months E11.59 - Type 2 diabetes mellitus with other circulatory complications, E11.69 - Type 2 diabetes mellitus with other specified complication, E11.8 - Type 2 diabetes mellitus with unspecified complications, E78.5 - Hyperlipidemia, unspecified, I15.2 - Hypertension secondary to endocrine disorders Lipid Panel 3 Months E11.59 - Type 2 diabetes mellitus with other circulatory complications, E11.69 - Type 2 diabetes mellitus with other specified complication, E11.8 - Type 2 diabetes mellitus with unspecified complications, E78.5 - Hyperlipidemia, unspecified, I15.2 - Hypertension secondary to endocrine disorders Medications: New atorvastatin 40 mg PO BEDTIME 90 tabs 0RF mecobalamin (vitamin B12) allow to dissolve in mouth OR may chew lightly before swallowing 1,000 mcg PO DAILY 90 days 90 ea 0RF Changed From enalapril maleate 20 mg PO DAILY 90 tabs 1RF To enalapril maleate 30 mg (1.5 x 20 mg) PO DAILY 90 tabs 1RF Coding Level of Care Code Est Pt Level 4 (16175) Diagnoses Hypertension associated with type 2 diabetes mellitus E11.59; I15.2 Diabetes mellitus type 2 with complications E11.8 Hyperlipidemia associated with type 2 diabetes mellitus E11.69; E78.5
[2023-05-29 15:04] VITALS: BP 137/72; PULSE 75; RESP 14; TEMP 36.8; O2SAT 96; BMI 31.5
== END 2023-05-29 15:40 | disposition home or self-care (01) ==
PROVIDERS: PCP Nurse Practitioner Family; Visit Provider Nurse Practitioner Family
DX: E11.59 Type 2 diabetes mellitus with other circulatory complications (principal); I15.2 Hypertension secondary to endocrine disorders; E11.8 Type 2 diabetes mellitus with unspecified complications; E11.69 Type 2 diabetes mellitus with other specified complication; E78.5 Hyperlipidemia, unspecified
CPT/HCPCS: 99214

== ENCOUNTER 2023-06-04 17:00 | Outpatient (RCR) | payer OTHER, SELFPAY ==
--- NOTE | 2023-05-15 15:34 | MHC.PT.EP ---
[facility] [place] Office [place] [facility] [place] [facility] [address] [place] [address] [phone] F: [phone] F: [phone] F: [phone] F: [phone] Physical Therapy Plan of Care Date of Evaluation: 05/15/23 Date of Surgery: Diagnosis: cervical spondylosis, chronic neck pain Per x-ray; multi-level cervical degenerative disc disease, spondylosis and facet arthropathy. Degenerative disc disease is most pronounced at C6-C7, where it is moderately severe. Assessment: Patient is a pleasant 58 y.o. male who is referred to PT by Jessica Le APRN, with Dx of cervical spondylosis, chronic neck pain. His x-ray imaging shows multi-level cervical degenerative disc disease, spondylosis and facet arthropathy. Degenerative disc disease is most pronounced at C6-C7, where it is moderately severe. Patient impairments include pain, limited ROM, weakness. Patient current functional limitations are prolonged driving at work, turning head when driving, looking up/doing anything overhead. Patient will benefit from skilled PT to address aforementioned impairments and functional limitations to meet established goals. Frequency and Duration: The patient will be seen 1-2x/week for 4 weeks Short Term Goals: 2 weeks Patient demonstrates consistency and independence with HEP to self manage symptoms. 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 Patient presents with increased bilateral middle trap strength 4+/5 to be able to have reduced pain when driving for work. Treatment Plan: Modalities to reduce pain, spasms and effusion. Manual therapy to restore motion and function. Therapeutic exercise to improve strength and flexibility. Neuromuscular re-education for posture and balance. Therapeutic activities to return to functional activities of daily living. Electronically signed by: Rebekah Contreras, PT, DPT Please sign and return to therapist. Thank you for your referral.
--- NOTE | 2023-06-05 15:26 | MHC.PT.DC ---
[facility] [place] Office [place] Office [place] Office [address] Ant Luong [address] [phone] F: [phone] F: [phone] F: [phone] F: [phone] Physical Therapy Discharge Report Diagnosis: cervical spondylosis, chronic neck pain Per x-ray; multi-level cervical degenerative disc disease, spondylosis and facet arthropathy. Degenerative disc disease is most pronounced at C6-C7, where it is moderately severe. Date of Surgery: Date of Evaluation: 05/15/23 Date of Discharge: 06/05/23 Treatments to Date: 4 Cancellations to Date: No Shows to Date: Discharge Status: Improved Function Independent with HEP Discharge Summary: Rahul reports his pain feels manageable now with the home exercise program so he feels ready for discharge. He shows improved ROM and shoulder strength, still weak in middle and low traps with poor slouched posture with prolonged sitting/postures. He does know how to self correct. Electronically signed by: Rebekah Contreras, PT, DPT Please sign and return to therapist. Thank you for your referral.
== END 2023-06-05 15:26 | disposition home or self-care (01) ==
LOC: HO.PT 17:00
PROVIDERS: PCP Nurse Practitioner Family; Visit Provider Registered Nurse Emergency
DX: M47.812 Spondylosis without myelopathy or radiculopathy, cervical region (principal); M54.2 Cervicalgia; G89.29 Other chronic pain
CPT/HCPCS: 97110; 97140; 97161; 97530

== ENCOUNTER 2023-06-05 15:41 | Outpatient (AMB) | payer OTHER, SELFPAY ==
--- NOTE | 2023-06-05 15:35 | MHC.PC.OV ---
Vital Signs 06/05/23 15:46 06/05/23 16:10 Height 5 ft 9 in Weight 216 lb 8 oz BMI 32.0 BP 138/80 124/64 Blood Pressure Location Rt brachial Lt brachial Position Sitting Sitting Respiration 13 Pulse 93 Pulse Source Pulse Oximeter Temp 97.6 F Temp Source Temporal Artery Scan Pulse Oximetry (%) 98 Oxygen Delivery Method Room Air Intake Visit Reasons: fu HTN Intake Note: Patient needs refill on metformin. .Net Architect Required: No Accompanied by: Self / Same As Patient Allergies penicillin V Allergy (Unknown, Verified 06/05/23 15:51) Itching Penicillins [PENICILLINS] Allergy (Unknown, Verified 06/05/23 15:51) ITCHING Medication List - Last Reconciled 06/05/23 by STIVEN Irwin-JOSE RAFAEL acetaminophen ER (Tylenol Arthritis Pain) 650 mg PO Q8H PRN aspirin (Adult Low Dose Aspirin) 81 mg PO DAILY atorvastatin 40 mg PO BEDTIME blood sugar diagnostic As directed blood-glucose meter As directed enalapril maleate 20 mg PO BID hydrochlorothiazide 25 mg PO DAILY lidocaine 5% 1 patch topical DAILY mecobalamin (vitamin B12) 1,000 mcg PO DAILY 90 days metformin 850 mg PO BID Tobacco use date assessed: 05/15/23 Dental Screening Dental Screen Date: 06/05/23 Did you have a dental visit in the last 12 months?: No Did you have a dental problem in the last 6 months where you did not have access to dental care?: No Was dental information given to patient?: Patient has dentist HPI HPI Comments History of Present Illness Details 58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 Colonoscopy: 2014 Dr Reed, 5 year recall, overdue (2019), referral placed 05/2023 Specialists: Pain Mgmt Family hx: Dad of cancer at age 82. Thinks this was brain cancer, but not entirely sure. Paternal uncle w/ Alz Dementia Labs from 05/16/2023 show a normal CBC, normal CMP, elevated triglycerides at 333, normal total cholesterol 189, LDL mildly elevated at 89, HDL low at 34, normal PSA, low normal vitamin B12 at 259, normal TSH, normal urine microalbumin. Here today to follow up on hypertension. At last visit his enalapril was increased from 20 mg to 30 mg daily. He was maintained on hydrochlorothiazide 25 mg daily. Home log reviewed today, shows improved SBP range, however most readings remains >140. Lowest was 120. tolerant of increase in enalapril however he reports a high co-pay. Denies cardiac or neuro symptoms. 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 Cas Lockett, Maggie Bradford, Felice Sr and colleagues, with an educational mansi from [employer]. Physical exam (Primary Care) Vital Signs: Last Vital Signs Temp 97.6 F 06/05/23 15:46 Pulse 93 06/05/23 15:46 Resp 13 06/05/23 15:46 BP 124/64 06/05/23 16:10 Pulse Ox 98 06/05/23 15:46 Oxygen Delivery Method Room Air 06/05/23 15:46 BMI result Body Mass Index 32.0 BMI Assessment/Plan discussion: High BMI High, discussed plan: lifestyle Tobacco/Smoking Status: Tobacco use Status Tobacco use date assessed 05/15/23 06/05/23 15:35 Patient Tobacco Use Status Never used Tobacco 06/05/23 15:35 e-Cigarette/Vaping Use Never Used 06/05/23 15:35 Thrive Assessment: Date of Thrive Assessment Date Thrive assessed 05/15/23 06/05/23 15:35 Const Other: Awake alert oriented very pleasant Sclera is nonicteric Mucous membranes moist Regular rate and rhythm Lung sounds clear auscultation Bilateral lower extremities without edema, skin intact, pedal pulses within normal limits bilat, normal monofilament and vibratory sensations bilat Assessment and Plan Assessment & Plan (1) Hypertension associated with type 2 diabetes mellitus: Comment: Goal of less than 130/80. Improvement with the increased however remains above goal even after increasing enalapril from 20 mg to 30 mg per day Plan to increase enalapril from 30mg/day to 20mg BID. As this is an expensive medication, once he runs out will change to Fosinopril at the same dosing. cont HCTZ 25 mg QD, monitor his blood pressure twice a day and bring a log with him to his next visit in 3-4 weeks for me to review with him. Code(s): E11.59 - Type 2 diabetes mellitus with other circulatory complications; I15.2 - Hypertension secondary to endocrine disorders Plan This note is constructed using voice recognition software. While every effort has been made to ensure accuracy in biotechnologist, still errors may have been included Sometimes, these errors may affect the content or meaning of the given sentence . Total time spent caring for the patient today was 45 minutes. This includes time spent before the visit reviewing the chart, time spent during the visit, and time spent after the visit on documentation Medications: Refilled metformin 850 mg PO BID 180 tabs 1RF Patient Instructions: Plan to increase enalapril from 30mg/day to 20mg BID. As this is an expensive medication, once he runs out will change to Fosinopril at the same dosing. RTO in July 03, 2023. Please bring BP log. Alert me if you are running low on Coding Level of Care Code Est Pt Level 5 (69248) Diagnoses Hypertension associated with type 2 diabetes mellitus E11.59; I15.2
[2023-06-05 15:46] VITALS: BP 138/80; PULSE 93; RESP 13; TEMP 36.4; O2SAT 98; BMI 32.0
[2023-06-05 16:10] VITALS: BP 124/64
== END 2023-06-05 16:38 | disposition home or self-care (01) ==
PROVIDERS: PCP Nurse Practitioner Family; Visit Provider Nurse Practitioner Family
DX: E11.59 Type 2 diabetes mellitus with other circulatory complications (principal); I15.2 Hypertension secondary to endocrine disorders
CPT/HCPCS: 99215

== ENCOUNTER 2023-06-27 10:06 | Outpatient (REF) | payer OTHER, SELFPAY ==
[2023-06-27 10:22] LABS: Basophils Absolute Auto 0.1 X10*3/uL (0.0-0.2); Basophils Percent Auto 0.8 % (0-2); Eosinophils Absolute Auto 0.4 X10*3/uL (0.0-0.4); Eosinophils Percent Auto 3.7 % (0-4); Hematocrit 44.6 % (42.0-52.0); Hemoglobin 14.6 g/dl (14.0-18.0); Imm Gran Abs Auto 0.07 X10*3/uL (0.00-0.03); Imm Gran Pct Auto 0.7 % (0.0-0.4); Lymphocytes Absolute Auto 3.3 X10*3/uL (1.2-4.9); Lymphocytes Percent Auto 34.9 % (20-40); MANUAL DIFF FLAG NO; Mean Corpuscular HGB Conc 32.7 g/dl (31.0-36.0); Mean Corpuscular Hemoglobin 29.2 pg (27.0-33.0); Mean Corpuscular Volume 89.2 fL (80.0-98.0); Mean Platelet Volume 11.1 fL (9.4-12.4); Monocytes Absolute Auto 0.7 X10*3/uL (0.1-1.2); Monocytes Percent Auto 7.4 % (2-11); Neutrophils Percent Auto 52.5 % (45-73); Platelet Count 266 X10*3/uL (160-400); Red Cell Distribution Width 12.8 % (11.0-16.0); White Blood Count 9.5 X10*3/uL (4.8-10.8)
[2023-06-27 10:48] LABS: Estimated Average Glucose 160 mg/dL; Hemoglobin A1c % 7.2 % (<6.0)
[2023-06-27 11:01] LABS: Alanine Aminotransferase 37 U/L (0-40); Albumin Level 4.5 g/dL (3.5-5.0); Alkaline Phosphatase 85 U/L (39-117); Anion Gap 14 (12-20); Aspartate Amino Transferase 26 U/L (5-37); Bilirubin Total 0.5 mg/dL (0.0-1.0); Blood Urea Nitrogen 9 mg/dL (9-16); Calcium 9.6 mg/dL (8.4-10.2); Carbon Dioxide 29 mmol/L (22-29); Chloride 104 mmol/L (96-108); Cholesterol 105 mg/dL (<200); Estimated Glomerular Filt Rate > 60; Glucose Fasting 137 mg/dL (60-99); HDL Cholesterol 31 mg/dL (>40); LDL Cholesterol Calculated 36 mg/dL (<100); Potassium 4.1 mmol/L (3.3-5.1); Sodium 143 mmol/L (135-145); Total Protein 7.7 g/dL (6.5-8.0); Triglycerides 194 mg/dL (<150)
== END 2023-06-27 10:07 | disposition home or self-care (01) ==
LOC: HO.LAB 10:06
PROVIDERS: Nurse Practitioner Family; PCP Nurse Practitioner Family; Visit Provider Nurse Practitioner Family
DX: E11.9 Type 2 diabetes mellitus without complications (principal); Z13.29 Encounter for screening for other suspected endocrine disorder; Z13.0 Encounter for screening for diseases of the blood and blood-forming organs and certain disorders involving the immune mechanism
CPT/HCPCS: 36415; 80053; 80061; 83036; 84443; 85025

== ENCOUNTER 2023-07-03 15:15 | Outpatient (AMB) | payer OTHER, SELFPAY ==
--- NOTE | 2023-07-03 15:25 | MHC.PC.OV ---
Vital Signs 07/03/23 15:30 Height 5 ft 9 in Weight 215 lb 8 oz BMI 31.8 BP 122/68 Blood Pressure Location Rt brachial Position Sitting Respiration 14 Pulse 96 Pulse Source Pulse Oximeter Temp 98.8 F Temp Source Temporal Artery Scan Pulse Oximetry (%) 94 Oxygen Delivery Method Room Air Intake Visit Reasons: bp check Intake Note: Blood pressure check. Lab results Preschool Aide Required: No Allergies penicillin V Allergy (Unknown, Verified 07/03/23 15:26) Itching Penicillins [PENICILLINS] Allergy (Unknown, Verified 07/03/23 15:26) ITCHING Medication List - Last Reconciled 07/03/23 by Suzie Harris, AGRICULTURAL ENGINEER- atorvastatin 40 mg PO BEDTIME blood sugar diagnostic As directed blood-glucose meter As directed enalapril maleate 20 mg PO BID mecobalamin (vitamin B12) 1,000 mcg PO DAILY 90 days metformin 850 mg PO BID Tobacco use date assessed: 05/15/23 Dental Screening Dental Screen Date: 07/03/23 Did you have a dental visit in the last 12 months?: No Did you have a dental problem in the last 6 months where you did not have access to dental care?: Yes Was dental information given to patient?: Patient has dentist HPI HPI Comments History of Present Illness Details 58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 Colonoscopy: 2014 Dr Reed, 5 year recall, overdue (2019), referral placed 05/2023 Specialists: Pain Mgmt Family hx: Dad of cancer at age 82. Thinks this was brain cancer, but not entirely sure. Paternal uncle w/ Alz Dementia Here today to f/u on DM, HLD and HTN: Log reviewed, SBP overall improved, still has some readings in the 140s very few in 150's however pulse rate has increased overall, several readings in the 100's. He is asx. Stopped taking his HCTZ as he didnt want to take too many medications. A1c elevated from last draw. Now 7.2%. Admits some dietary indiscretions. Tolerant and compliant of Metformin. Labs from 05/16/2023 show a normal CBC, normal CMP, elevated triglycerides at 333, normal total cholesterol 189, LDL mildly elevated at 89, HDL low at 34, normal PSA, low normal vitamin B12 at 259, normal TSH, normal urine microalbumin. Labs from 06/27/2023 show a normal CBC, normal CMP, fasting glucose 137, hemoglobin A1c 7.2%, total cholesterol 105, LDL 36, triglyceride 194, HDL 31, normal TSH [facility] Medical History Chronic neck pain Diabetes mellitus Essential hypertension Surgical History History of hernia surgery Family History Mother Asthma High blood pressure Father Cancer Prostate cancer High blood pressure Social History Housing: House Alcohol intake: current Alcohol intake frequency: holidays/special occasions only Patient Tobacco Use Status: Never used Tobacco e-Cigarette/Vaping Use: Never Used Second Hand Smoke Exposure: No service: No Current occupational status: employed 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 How often do you have a drink containing alcohol?: Monthly or less 2. How many drinks containing alcohol do you have on a typical day when you are drinking?: 1 or 2 3. How often do you have six or more drinks on one occasion?: Never Total Score: 1 CHRISTOPHER-7 AMB Questionnaire CHRISTOPHER-7 Date CHRISTOPHER - 7 assessed: 05/15/23 Source: Developed by Drs. Cas Lockett, Maggie Bradford, Felice Sr and colleagues, with an educational mansi from [employer]. Review of Systems Const All systems reviewed & are unremarkable except as noted in HPI and below Physical exam (Primary Care) Vital Signs: Last Vital Signs Temp 98.8 F 07/03/23 15:30 Pulse 96 07/03/23 15:30 Resp 14 07/03/23 15:30 BP 122/68 07/03/23 15:30 Pulse Ox 94 07/03/23 15:30 Oxygen Delivery Method Room Air 07/03/23 15:30 BMI result Body Mass Index 31.8 BMI Assessment/Plan discussion: High BMI High, discussed plan: lifestyle Tobacco/Smoking Status: Tobacco use Status Tobacco use date assessed 05/15/23 07/03/23 15:33 Patient Tobacco Use Status Never used Tobacco 07/03/23 15:33 e-Cigarette/Vaping Use Never Used 07/03/23 15:33 Thrive Assessment: Date of Thrive Assessment Date Thrive assessed 05/15/23 07/03/23 15:33 Const Other: Awake alert oriented very pleasant Sclera is nonicteric Mucous membranes moist Regular rate and rhythm Lung sounds clear auscultation Bilateral lower extremities without edema, skin intact, pedal pulses within normal limits bilat, normal monofilament and vibratory sensations bilat Assessment and Plan Assessment & Plan (1) Diabetes mellitus type 2 with complications: Comment: HGB A1c 7.2% today which is up trending He is on metformin 850 p.o. b.i.d. His B12 was noted to be on the low end of normal at 259 on labs May 2023. Given that he is on metformin we will start him on B12 sublingual a 1000 mcg q.day. We will recheck this level in 3 months. Diabetic eye exam - done at [facility] in [place], [place]. May need to place a new referral. We will continue to follow On an Acei for renal protection Tdap 05/2023. Declines flu. Plan: D/c metformin 850 mg BID. Start Synjardy 12.5-1000mg 1 tab po BID. Chhaya Vasquez. NN referral to help set up and use. Code(s): E11.8 - Type 2 diabetes mellitus with unspecified complications (2) Hypertension associated with type 2 diabetes mellitus: Comment: Goal of less than 130/80. In office today, BP at goal, home log is improved but cont w/ elevated readings while taking enalapril 20mg BID. He did stop HCTZ 25mg, as he didnt want to take too many medications. His pulse rate was noted to be > 100 Plan: As enalapril is an expensive medication, will change to Fosinopril-HCTZ 20mg/12.5 1 tab po BID, monitor his blood pressure twice a day and bring a log with him to his next visit Code(s): E11.59 - Type 2 diabetes mellitus with other circulatory complications; I15.2 - Hypertension secondary to endocrine disorders (3) Hyperlipidemia associated with type 2 diabetes mellitus: Comment: Lipid profile has improved greatly since last visit. plan: Cont atorvastatin 40mg QHS, LDL goal is less than 70. We will repeat labs and bring him back to discuss this in 3 months Code(s): E11.69 - Type 2 diabetes mellitus with other specified complication; E78.5 - Hyperlipidemia, unspecified Plan RTO IN 3 MONTHS W REPEAT LABS TO FU ON HTN, B12, DM, HLD THIS NOTE IS CONSTRUCTED USING VOICE RECOGNITION SOFTWARE. WHILE EVERY EFFORT HAS BEEN MADE TO ENSURE ACCURACY IN VOLUNTEER PATIENT REPRESENTATIVE, STILL ERRORS MAY HAVE BEEN INCLUDED SOMETIMES, THESE ERRORS MAY AFFECT THE CONTENT OR MEANING OF THE GIVEN SENTENCE . TOTAL TIME SPENT CARING FOR THE PATIENT TODAY WAS 45 MINUTES. THIS INCLUDES TIME SPENT BEFORE THE VISIT REVIEWING THE CHART, TIME SPENT DURING THE VISIT, AND TIME SPENT AFTER THE VISIT ON DOCUMENTATION Orders: Orders Hemoglobin A1c 08/27/23 E11.8 - Type 2 diabetes mellitus with unspecified complications Referrals Nurse Navigator Referral E11.8 - Type 2 diabetes mellitus with unspecified complications Medications: New blood-glucose sensor (FreeStyle Pedro 3 Sensor device) As directed 2 ea 11RF E11.8 - Type 2 diabetes mellitus with unspecified complications empagliflozin-metformin 12.5-1,000 mg (Synjardy) 1 tab PO BID 60 tabs 3RF blood-glucose meter,continuous (FreeStyle Pedro 3 [place]) As directed 1 ea 0RF E11.8 - Type 2 diabetes mellitus with unspecified complications fosinopril-hydrochlorothiazide 20-12.5 mg 1 tab PO BID 60 tabs 3RF Discontinued metformin Discontinued Reason: Doctor's Order 850 mg PO BID 180 tabs 1RF Coding Level of Care Code Est Pt Level 5 (54011) Diagnoses Diabetes mellitus type 2 with complications E11.8 Hypertension associated with type 2 diabetes mellitus E11.59; I15.2 Hyperlipidemia associated with type 2 diabetes mellitus E11.69; E78.5
[2023-07-03 15:30] VITALS: BP 122/68; PULSE 96; RESP 14; TEMP 37.1; O2SAT 94; BMI 31.8
== END 2023-07-03 16:14 | disposition home or self-care (01) ==
PROVIDERS: PCP Nurse Practitioner Family; Visit Provider Nurse Practitioner Family
DX: E11.59 Type 2 diabetes mellitus with other circulatory complications (principal); E11.69 Type 2 diabetes mellitus with other specified complication; I15.2 Hypertension secondary to endocrine disorders; E78.5 Hyperlipidemia, unspecified
CPT/HCPCS: 99215

== ENCOUNTER 2023-07-31 09:50 | Outpatient (AMB) | payer OTHER, SELFPAY ==
[2023-07-31 10:01] VITALS: BP 129/72; PULSE 96; BMI 29.9
--- NOTE | 2023-07-31 10:01 | A.OFFVIS_ITS ---
Vital Signs 07/31/23 10:01 Height 5 ft 9 in Weight 202 lb 13.204 oz BMI 29.9 BP 129/72 Blood Pressure Location Rt brachial Position Sitting Pulse 96 Intake Visit Reasons: Colonoscopy Screening Intake Note: New patient in office visit today for colonoscopy screening. CC: Patient c/o a lot of gas and diarrhea sometimes that he states is due to the Metformin. Denies other GI symptoms. Laboratory Assistant Required: No Accompanied by: Self / Same As Patient Allergies penicillin V Allergy (Unknown, Verified 07/31/23 10:08) Itching Penicillins [PENICILLINS] Allergy (Unknown, Verified 07/31/23 10:08) ITCHING HPI HPI Colonoscopy Screening: Details: 58 year old? male with past medical history of diabetes, cervical spondylosis with radiculopathy, hypertension, hyperlipidemia is here today for pre colonoscopy screening.? Patient was sent to us by his PCP.? Patient had colonoscopy in 2014 and was recommended to repeat colonoscopy in 5 years due to suboptimal prep.? Patient denies any gastrointestinal symptoms in the past or at present.? However patient does admit that occasionally he will have loose stools, however he is on metformin and was told that he might occasionally have loose stools depending on what he eats. Denies any personal or family history of gastrointestinal disease, colon polyps, or cancer.? Denies history of difficulty with sedation or anesthesia in the past.? Negative for history of sleep apnea.? Denies any history of cardiac, renal, pulmonary, or hepatic disease.?? No history of infectious? diseases like hepatitis A, B, C, HIV or tuberculosis.? Patient is not on any anticoagulation therapy. 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 Cognitive needs: No Hearing needs: No Vision needs: Yes (Glasses) Physical Exam Vital Signs: Last Vital Signs Pulse 96 07/31/23 10:01 BP 129/72 07/31/23 10:01 BMI result Body Mass Index 29.9 Const General: healthy appearing and no acute distress Nutritional Appearance: obese Orientation/consciousness: patient oriented x3 Resp Effort & Inspection: normal respiratory effort, able to speak in complete sentences, no tracheal deviation and symmetric chest movement Auscultation: clear to auscultation bilaterally Cardio Rate: regular rate GI Inspection: Yes normal to inspection, No distended and Yes obesity Palpation (GI): Soft to palpation, not firm, nontender and No hepatosplenomegaly present Auscultation: normal bowel sounds General: Yes no CVA tenderness Back/Spine/Pelvis Back: no CVA tenderness Skin General skin exam: elasticity normal, turgor normal and dry skin Neuro General: patient oriented x3 Psych Appearance: grossly normal Mental Status: mental status grossly normal Assessment & Plan Assessment & Plan (1) Screen for colon cancer: Code(s): Z12.11 - Encounter for screening for malignant neoplasm of colon Plan Patient denies any GI, cardiac or respiratory symptoms. ?Denies any issues with anesthesia in the past.? Denies any history of sleep apnea.? No history infectious diseases in the past or present.? Not on any anticoagulation therapy.? No family or personal history of colon cancer or polyps.? Suboptimal prep on colonoscopy in 2014. Patient denies melena, hematochezia, unintentional weight loss or ribbon like stools.? Discussed at length the pre-procedure,? prep , diet & medications as well as what to expect prior, during and after the procedure.?? Stressed the importance of good bowel prep. ?Recommended the use of Vaseline or Calmoseptine OTC & baby wipes with bowel movements to promote comfort.? ?Patient verbalizes understanding and agrees to plan of care.? He was given the opportunity to ask questions and all questions answered.? We will see him after the procedure.? Medications: New polyethylene glycol 3350 (Miralax) As directed by gastroenterology department at [facility] 238 grams PO ONCE 238 grams 0RF Z12.11 - Encounter for screening for malignant neoplasm of colon bisacodyl (Dulcolax (bisacodyl)) take 4 tabs at noon the day before your colonoscopy 20 mg (4 x 5 mg) PO ONCE 1 day 4 tabs 0RF Z12.11 - Encounter for screening for malignant neoplasm of colon Coding Level of Care Code New Pt Level 3 (30458) Diagnoses Screen for colon cancer Z12.11 Time Spent (min) 40 Comment 30 minutes spent with patient and additional 10 minutes spent reviewing his records
== END 2023-07-31 10:49 | disposition home or self-care (01) ==
PROVIDERS: PCP Nurse Practitioner Family; Visit Provider Nurse Practitioner Family
DX: Z12.11 Encounter for screening for malignant neoplasm of colon (principal); Z01.818 Encounter for other preprocedural examination
CPT/HCPCS: 99203

== ENCOUNTER → 2023-07-31 09:50 | Outpatient (BNVA) | payer OTHER, SELFPAY | PROVIDERS: PCP Nurse Practitioner Family; Visit Provider Nurse Practitioner Family | DX: Z01.818 Encounter for other preprocedural examination (principal) | CPT/HCPCS: 99202 ==

== ENCOUNTER 2023-09-18 15:21 | Outpatient (AMB) | payer OTHER, SELFPAY ==
--- NOTE | 2023-09-18 15:24 | MHC.PC.OV ---
Vital Signs 09/18/23 15:34 Height 5 ft 9 in Weight 208 lb 4 oz BMI 30.7 BP 132/72 Blood Pressure Location Lt brachial Position Sitting Respiration 14 Pulse 98 Pulse Source Pulse Oximeter Pulse Oximetry (%) 96 Oxygen Delivery Method Room Air Intake Visit Reasons: DM fu Intake Note: F/U visit Allergies penicillin V Allergy (Unknown, Verified 09/18/23 15:28) Itching Penicillins [PENICILLINS] Allergy (Unknown, Verified 09/18/23 15:28) ITCHING Medication List - Last Reconciled 09/18/23 by Suzie Harris, GEOSPATIAL SCIENTIST- atorvastatin 40 mg PO BEDTIME bisacodyl (Dulcolax (bisacodyl)) 20 mg (4 x 5 mg) PO ONCE 1 day blood sugar diagnostic As directed blood-glucose meter As directed blood-glucose meter,continuous (Intent HQStyle Pedro 3 [place]) As directed blood-glucose sensor (FreeStyle Pedro 3 Sensor device) As directed empagliflozin-metformin 12.5-1,000 mg (Synjardy) 1 tab PO BID fosinopril-hydrochlorothiazide 20-12.5 mg 1 tab PO BID mecobalamin (vitamin B12) 1,000 mcg PO DAILY 90 days polyethylene glycol 3350 (Miralax) 238 grams PO ONCE Tobacco use date assessed: 09/18/23 Dental Screening Dental Screen Date: 09/18/23 Did you have a dental visit in the last 12 months?: Yes HPI HPI Comments History of Present Illness Details 58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 Colonoscopy: Referred to [facility] [place], colon ordered and pending Specialists: Pain Mgmt Labs from 06/27/2023 show a normal CBC, normal CMP, fasting glucose 137, hemoglobin A1c 7.2%, total cholesterol 105, LDL 36, triglyceride 194, HDL 31, normal TSH Here today for chronic dz mgmt HTN: Was supposed to be taking fosinopril/hctz 20mg/12.5mg po BID However has noted when SBP goes to 120 or lower, feels very sleepy if 120-135 does not feel this way only using PRN for SBP > 140 Declines to take otherwise B12 def: cont to take supplement DM Hga1c today 6.5%, was 7.2% Using Freestyle Pedro 3 Time in target 91%, 9% above (above 180) for the last 14 days, 0 below. Tolerant with Synjardy. Has lost about 7 lbs since last office visit HLD: Stopped taking statin when he ran out of current RX, last time 2 weeks ago. No side effects Would like to get off if able. Plan: Would like to remain off blood pressure medications. At this time we will discontinue as his blood pressure is at goal. We will have a low threshold for restarting. He monitors daily and keep a good log. Advised to let me know if his blood pressure is above goal. In regards to his B12 deficiency he can continue to take the supplement. He is overdue for labs and he is going to get them done tomorrow. His diabetes is well controlled on the current dose of Synjardy and we will continue this at this time. We will need to re-evaluate at the next office visit to see if we need to lower the metformin part of the Synjardy given a lower A1c associated with weight loss. He has not having significant hypoglycemia at this time so therefore we will keep the dose the same. Titrate statin to an LDL goal less than 70. Patient really does not want to be on medications however is aware that he may need it. I will follow up with him once the labs are resulted in order future labs to be done before his next visit which will be in 3 months to follow up on chronic conditions. 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 How often do you have a drink containing alcohol?: Monthly or less (Socially/Holidays) 2. How many drinks containing alcohol do you have on a typical day when you are drinking?: 1 or 2 3. How often do you have six or more drinks on one occasion?: Never Total Score: 1 CHRISTOPHER-7 AMB Questionnaire CHRISTOPHER-7 Date CHRISTOPHER - 7 assessed: 05/15/23 Source: Developed by Drs. aCs Lockett, Maggie Bradford, Felice Sr and colleagues, with an educational mansi from [employer]. Review of Systems Const All systems reviewed & are unremarkable except as noted in HPI and below Physical exam (Primary Care) Vital Signs: Last Vital Signs Pulse 98 09/18/23 15:34 Resp 14 09/18/23 15:34 BP 132/72 09/18/23 15:34 Pulse Ox 96 09/18/23 15:34 Oxygen Delivery Method Room Air 09/18/23 15:34 BMI result Body Mass Index 30.7 BMI Assessment/Plan discussion: High BMI High, discussed plan: lifestyle Tobacco/Smoking Status: Tobacco use Status Tobacco use date assessed 09/18/23 09/18/23 15:37 Patient Tobacco Use Status Never used Tobacco 09/18/23 15:37 e-Cigarette/Vaping Use Never Used 09/18/23 15:24 Thrive Assessment: Date of Thrive Assessment Date Thrive assessed 05/15/23 09/18/23 15:24 Const Other: Awake alert oriented very pleasant Sclera is nonicteric Mucous membranes moist Regular rate and rhythm Lung sounds clear auscultation Bilateral lower extremities without edema, skin intact, pedal pulses within normal limits bilat, normal monofilament and vibratory sensations bilat Results AMB Hemoglobin A1c AMB Hemoglobin A1c 6.5 % Last Edit by AMY Irwin on 09/18/23 16:27 Assessment and Plan Assessment & Plan (1) Hypertension associated with type 2 diabetes mellitus: Comment: Goal of less than 130/80. Code(s): E11.59 - Type 2 diabetes mellitus with other circulatory complications; I15.2 - Hypertension secondary to endocrine disorders (2) Diabetes mellitus type 2 with complications: Comment: Diabetic eye exam - done at [facility] in [place], [place]. May need to place a new referral. We will continue to follow Tdap 05/2023. Plan: Cont Synjardy 12.5-1000mg 1 tab po BID. Freestyle Pedro 3 Code(s): E11.8 - Type 2 diabetes mellitus with unspecified complications (3) Hyperlipidemia associated with type 2 diabetes mellitus: Code(s): E11.69 - Type 2 diabetes mellitus with other specified complication; E78.5 - Hyperlipidemia, unspecified (4) Obesity (BMI 30-39.9): Comment: assoc w/ DM and HLD Code(s): E66.9 - Obesity, unspecified (5) B12 deficiency: Code(s): E53.8 - Deficiency of other specified B group vitamins Plan This note is constructed using voice recognition software. While every effort has been made to ensure accuracy in automatic drilling machine operator, still errors may have been included Sometimes, these errors may affect the content or meaning of the given sentence . Total time spent caring for the patient today was 45 minutes. This includes time spent before the visit reviewing the chart, time spent during the visit, and time spent after the visit on documentation Orders: Orders Lipid Panel 12/06/23 E11.59 - Type 2 diabetes mellitus with other circulatory complications, E11.69 - Type 2 diabetes mellitus with other specified complication, E11.8 - Type 2 diabetes mellitus with unspecified complications, E53.8 - Deficiency of other specified B group vitamins, E66.9 - Obesity, unspecified, E78.5 - Hyperlipidemia, unspecified, I15.2 - Hypertension secondary to endocrine disorders Vitamin B12 and Folate 12/06/23 E11.59 - Type 2 diabetes mellitus with other circulatory complications, E11.69 - Type 2 diabetes mellitus with other specified complication, E11.8 - Type 2 diabetes mellitus with unspecified complications, E53.8 - Deficiency of other specified B group vitamins, E66.9 - Obesity, unspecified, E78.5 - Hyperlipidemia, unspecified, I15.2 - Hypertension secondary to endocrine disorders AMB Hemoglobin A1c Today Z13.9 - Encounter for screening, unspecified Comprehensive [place]. Panel Fast 12/06/23 E11.59 - Type 2 diabetes mellitus with other circulatory complications, E11.69 - Type 2 diabetes mellitus with other specified complication, E11.8 - Type 2 diabetes mellitus with unspecified complications, E53.8 - Deficiency of other specified B group vitamins, E66.9 - Obesity, unspecified, E78.5 - Hyperlipidemia, unspecified, I15.2 - Hypertension secondary to endocrine disorders Hemoglobin A1c 12/06/23 E11.59 - Type 2 diabetes mellitus with other circulatory complications, E11.69 - Type 2 diabetes mellitus with other specified complication, E11.8 - Type 2 diabetes mellitus with unspecified complications, E53.8 - Deficiency of other specified B group vitamins, E66.9 - Obesity, unspecified, E78.5 - Hyperlipidemia, unspecified, I15.2 - Hypertension secondary to endocrine disorders Medications: Refilled empagliflozin-metformin 12.5-1,000 mg (Synjardy) 1 tab PO BID 60 tabs 3RF Discontinued fosinopril-hydrochlorothiazide 20-12.5 mg Discontinued Reason: Doctor's Order 1 tab PO BID 60 tabs 3RF Patient Instructions: Plan: Would like to remain off blood pressure medications. At this time we will discontinue as his blood pressure is at goal. We will have a low threshold for restarting. He monitors daily and keep a good log. Advised to let me know if his blood pressure is above goal. In regards to his B12 deficiency he can continue to take the supplement. He is overdue for labs and he is going to get them done tomorrow. His diabetes is well controlled on the current dose of Synjardy and we will continue this at this time. We will need to re-evaluate at the next office visit to see if we need to lower the metformin part of the Synjardy given a lower A1c associated with weight loss. He has not having significant hypoglycemia at this time so therefore we will keep the dose the same. Titrate statin to an LDL goal less than 70. Patient really does not want to be on medications however is aware that he may need it. I will follow up with him once the labs are resulted in order future labs to be done before his next visit which will be in 3 months to follow up on chronic conditions. Coding Level of Care Code Est Pt Level 5 (64397) Diagnoses Hypertension associated with type 2 diabetes mellitus E11.59; I15.2 Diabetes mellitus type 2 with complications E11.8 Hyperlipidemia associated with type 2 diabetes mellitus E11.69; E78.5 Obesity (BMI 30-39.9) E66.9 B12 deficiency E53.8
[2023-09-18 15:34] VITALS: BP 132/72; PULSE 98; RESP 14; O2SAT 96; BMI 30.7
== END 2023-09-18 16:12 | disposition home or self-care (01) ==
PROVIDERS: PCP Nurse Practitioner Family; Visit Provider Nurse Practitioner Family
DX: E11.59 Type 2 diabetes mellitus with other circulatory complications (principal); I15.2 Hypertension secondary to endocrine disorders; E11.69 Type 2 diabetes mellitus with other specified complication; E78.5 Hyperlipidemia, unspecified; E53.8 Deficiency of other specified B group vitamins; E66.9 Obesity, unspecified; Z68.30 Body mass index [BMI] 30.0-30.9, adult
CPT/HCPCS: 83036; 99215

== ENCOUNTER 2023-09-19 07:40 | Outpatient (REF) | payer OTHER, SELFPAY ==
[2023-09-19 08:51] LABS: Alanine Aminotransferase 28 U/L (0-40); Albumin Level 4.4 g/dL (3.5-5.0); Alkaline Phosphatase 65 U/L (39-117); Anion Gap 16 (12-20); Aspartate Amino Transferase 20 U/L (5-37); Bilirubin Total 0.4 mg/dL (0.0-1.0); Blood Urea Nitrogen 12 mg/dL (9-16); Calcium 9.1 mg/dL (8.4-10.2); Carbon Dioxide 23 mmol/L (22-29); Chloride 108 mmol/L (96-108); Cholesterol 178 mg/dL (<200); Estimated Glomerular Filt Rate > 60; Glucose Fasting 118 mg/dL (60-99); HDL Cholesterol 27 mg/dL (>40); LDL Cholesterol Calculated 102 mg/dL (<100); Potassium 4.2 mmol/L (3.3-5.1); Sodium 143 mmol/L (135-145); Total Protein 7.3 g/dL (6.5-8.0); Triglycerides 247 mg/dL (<150)
[2023-09-19 09:13] LABS: Vitamin B12 587 pg/mL (200-900)
== END 2023-09-19 07:41 | disposition home or self-care (01) ==
LOC: HO.LAB 07:40
PROVIDERS: PCP Nurse Practitioner Family; Visit Provider Nurse Practitioner Family
DX: E11.59 Type 2 diabetes mellitus with other circulatory complications (principal); I15.2 Hypertension secondary to endocrine disorders; E11.8 Type 2 diabetes mellitus with unspecified complications; E11.69 Type 2 diabetes mellitus with other specified complication; E78.5 Hyperlipidemia, unspecified
CPT/HCPCS: 36415; 80053; 80061; 82607

== ENCOUNTER 2023-12-21 05:58 | Outpatient (REF) | payer OTHER, SELFPAY ==
[2023-12-21 08:06] LABS: Alanine Aminotransferase 28 U/L (0-40); Albumin Level 4.4 g/dL (3.5-5.0); Alkaline Phosphatase 78 U/L (39-117); Anion Gap 13 (12-20); Aspartate Amino Transferase 18 U/L (5-37); Bilirubin Total 0.4 mg/dL (0.0-1.0); Blood Urea Nitrogen 8 mg/dL (9-16); Calcium 9.7 mg/dL (8.4-10.2); Carbon Dioxide 25 mmol/L (22-29); Chloride 109 mmol/L (96-108); Cholesterol 98 mg/dL (<200); Estimated Average Glucose 151 mg/dL; Estimated Glomerular Filt Rate > 60; Glucose Fasting 146 mg/dL (60-99); HDL Cholesterol 29 mg/dL (>40); Hemoglobin A1c % 6.9 % (<6.0); LDL Cholesterol Calculated 39 mg/dL (<100); Potassium 3.8 mmol/L (3.3-5.1); Sodium 143 mmol/L (135-145); Total Protein 7.3 g/dL (6.5-8.0); Triglycerides 153 mg/dL (<150)
[2023-12-21 09:05] LABS: Folate 14.2 ng/mL (> or = 4.0); Vitamin B12 755 pg/mL (200-900)
== END 2023-12-21 05:59 | disposition home or self-care (01) ==
LOC: HO.LAB 05:58
PROVIDERS: PCP Nurse Practitioner Family; Visit Provider Nurse Practitioner Family
DX: E53.8 Deficiency of other specified B group vitamins (principal); E66.9 Obesity, unspecified; E11.59 Type 2 diabetes mellitus with other circulatory complications; I15.2 Hypertension secondary to endocrine disorders; E11.8 Type 2 diabetes mellitus with unspecified complications; E11.69 Type 2 diabetes mellitus with other specified complication; E78.5 Hyperlipidemia, unspecified
CPT/HCPCS: 36415; 80053; 80061; 82607; 82746; 83036

== ENCOUNTER 2023-12-25 14:14 | Outpatient (AMB) | payer OTHER, SELFPAY ==
--- NOTE | 2023-12-25 14:27 | MHC.PC.OV ---
Vital Signs 12/25/23 14:29 Height 5 ft 9 in Weight 206 lb BMI 30.4 BP 132/60 Blood Pressure Location Rt brachial Position Sitting Pulse 90 Pulse Source Auscultation Pulse Oximetry (%) 98 Oxygen Delivery Method Room Air Intake Visit Reasons: chronic dz mgmt Call Centre Supervisor Required: No Allergies penicillin V Allergy (Unknown, Verified 12/25/23 14:31) Itching Penicillins [PENICILLINS] Allergy (Unknown, Verified 12/25/23 14:31) ITCHING Medication List - Last Reconciled 12/25/23 by Suzie Harris, DIRECTOR OF RESTAURANTS-BC atorvastatin 40 mg PO BEDTIME bisacodyl (Dulcolax (bisacodyl)) 20 mg (4 x 5 mg) PO ONCE 1 day blood sugar diagnostic As directed blood-glucose meter As directed blood-glucose meter,continuous (MM [employer] Pedro 3 [place]) As directed blood-glucose sensor (FreeStyle Pedro 3 Sensor device) As directed empagliflozin-metformin 12.5-1,000 mg (Synjardy) 1 tab PO BID mecobalamin (vitamin B12) 1,000 mcg PO DAILY 90 days polyethylene glycol 3350 (Miralax) 238 grams PO ONCE Tobacco use date assessed: 09/18/23 Dental Screening Dental Screen Date: 09/18/23 HPI HPI Comments History of Present Illness Details 58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 Colonoscopy: see below - referred scheduled 01/2024 [facility] [place] Specialists: Pain Mgmt Urology GI Here today for chronic dz mgmt 12/21/2023 6.9% a1c worse, otherwise improved lipid profile at goal. CMP stable/WNL HTN: Taking fosinopril/hctz 20mg/12.5mg 1/2 tab PRN SBP > 140. Home log reviewed, looks great actually with very sparing use of PRN medication. + effects from the PRN use w/o side effects. B12 def: cont to take supplement DM Hga1c today 6.9% 12/21/23 Time in Target 75% for 90 days and 87% for 2 months, 1 month, 2 weeks and 1 week. No lows. < 10% high. Using NX Pharm[employer] Pedro 3 Tolerant with Synjardy. Has lost about 3 lbs since last office visit HLD: LDL at goal on statin, tolerating w/o side effects. Other notes: Would like referral to Urology. Reports cysts on scrotum that comes and goes. It started in November. A little bigger since last time. Present on left side. Reports normal elimination. Gets up at once at night. Reports feels able to urinate and empty bladder. Did have GI consult, colon scheduled in January. He has forgotten the prep instructions. Message sent directly to ask them to reach out to him to help. Plan: Chronic diseases are well managed on the current medication therapy. Although his A1c is mildly increased from last time, he is having no hypoglycemia. And based on the CGM he is having pretty good control. His elevated blood sugars are after meals. Dietary education provided. Exercise encouraged along with continued weight loss. I would like him to continue on the same dose of his Synjardy, atorvastatin and B12. His BP is well controlled with sparing use of the p.r.n. fosinopril-hydrochlorothiazide of which she can continue to use as needed only. I have placed a referral to Urology as requested. Return to office in March for complete physical exam, sooner as needed This note is constructed using voice recognition software. While every effort has been made to ensure accuracy in model maker apprentice, still errors may have been included Sometimes, these errors may affect the content or meaning of the given sentence . Total time spent caring for the patient today was 45 minutes. This includes time spent before the visit reviewing the chart, time spent during the visit, and time spent after the visit on documentation [facility] Medical History Chronic neck pain Diabetes mellitus Essential hypertension Surgical History H/O colonoscopy History of hernia surgery Family History Mother Asthma High blood pressure Father Cancer Prostate cancer High blood pressure Social History Housing: House Alcohol intake: current Alcohol intake frequency: holidays/special occasions only Patient Tobacco Use Status: Never used Tobacco e-Cigarette/Vaping Use: Never Used Second Hand Smoke Exposure: No service: No Current occupational status: employed 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 Cas Lockett, Maggie Bradford, Felice Sr and colleagues, with an educational mansi from [employer]. Physical exam (Primary Care) BMI Assessment/Plan discussion: High BMI High, discussed plan: lifestyle Tobacco/Smoking Status: Tobacco use Status Tobacco use date assessed 09/18/23 09/18/23 15:37 Patient Tobacco Use Status Never used Tobacco 09/18/23 15:37 e-Cigarette/Vaping Use Never Used 09/18/23 15:24 Thrive Assessment: Date of Thrive Assessment Date Thrive assessed 05/15/23 09/18/23 15:24 Const Other: Awake alert oriented very pleasant Sclera is nonicteric Mucous membranes moist Regular rate and rhythm Lung sounds clear auscultation No hepatic tenderness with palp, abd soft Offered and declined exam. Bilateral lower extremities without edema, skin intact, pedal pulses within normal limits bilat, normal monofilament and vibratory sensations bilat Assessment and Plan Assessment & Plan (1) Scrotal cyst: Code(s): L72.9 - Follicular cyst of the skin and subcutaneous tissue, unspecified (2) B12 deficiency: Code(s): E53.8 - Deficiency of other specified B group vitamins (3) Obesity (BMI 30-39.9): Comment: assoc w/ DM and HLD Code(s): E66.9 - Obesity, unspecified (4) Hypertension associated with type 2 diabetes mellitus: Comment: Goal of less than 130/80. Code(s): E11.59 - Type 2 diabetes mellitus with other circulatory complications; I15.2 - Hypertension secondary to endocrine disorders (5) Diabetes mellitus type 2 with complications: Comment: Diabetic eye exam - done at [facility] in [place], [place]. May need to place a new referral. We will continue to follow Tdap 05/2023. Plan: Cont Synjardy 12.5-1000mg 1 tab po BID. Freestyle Pedro 3 Code(s): E11.8 - Type 2 diabetes mellitus with unspecified complications (6) Hyperlipidemia associated with type 2 diabetes mellitus: Code(s): E11.69 - Type 2 diabetes mellitus with other specified complication; E78.5 - Hyperlipidemia, unspecified Orders: Referrals Urology Referral L72.9 - Follicular cyst of the skin and subcutaneous tissue, unspecified Medications: Changed From fosinopril-hydrochlorothiazide 20-12.5 mg 1 tab PO BID 60 tabs 3RF To fosinopril-hydrochlorothiazide 20-12.5 mg 0.5 tabs PO ONCE PRN 30 tabs 3RF SBP > 140 Refilled blood-glucose sensor (FreeStyle Pedro 3 Sensor device) As directed 2 ea 11RF E11.8 - Type 2 diabetes mellitus with unspecified complications empagliflozin-metformin 12.5-1,000 mg (Synjardy) 1 tab PO BID 180 tabs 1RF Review Flu Vaccine not done: patient reason Coding Level of Care Code Est Pt Level 5 (77622) Complex EM visit Add On G2211 Diagnoses Scrotal cyst L72.9 B12 deficiency E53.8 Obesity (BMI 30-39.9) E66.9 Hypertension associated with type 2 diabetes mellitus E11.59; I15.2 Diabetes mellitus type 2 with complications E11.8 Hyperlipidemia associated with type 2 diabetes mellitus E11.69; E78.5
[2023-12-25 14:29] VITALS: BP 132/60; PULSE 90; O2SAT 98; BMI 30.4
== END 2023-12-25 15:11 | disposition home or self-care (01) ==
PROVIDERS: PCP Nurse Practitioner Family; Visit Provider Nurse Practitioner Family
DX: E11.59 Type 2 diabetes mellitus with other circulatory complications (principal); E11.69 Type 2 diabetes mellitus with other specified complication; E11.8 Type 2 diabetes mellitus with unspecified complications; E66.9 Obesity, unspecified; Z68.30 Body mass index [BMI] 30.0-30.9, adult; L72.9 Follicular cyst of the skin and subcutaneous tissue, unspecified; E53.8 Deficiency of other specified B group vitamins; I15.2 Hypertension secondary to endocrine disorders; E78.5 Hyperlipidemia, unspecified

== ENCOUNTER → 2023-12-25 14:14 | Outpatient (BNVA) | payer OTHER, SELFPAY | PROVIDERS: PCP Nurse Practitioner Family; Visit Provider Nurse Practitioner Family | DX: L72.9 Follicular cyst of the skin and subcutaneous tissue, unspecified (principal); E53.8 Deficiency of other specified B group vitamins; E66.9 Obesity, unspecified; E11.59 Type 2 diabetes mellitus with other circulatory complications; I15.2 Hypertension secondary to endocrine disorders; E11.69 Type 2 diabetes mellitus with other specified complication; E78.5 Hyperlipidemia, unspecified; Z79.84 Long term (current) use of oral hypoglycemic drugs | CPT/HCPCS: 99212 ==

== ENCOUNTER 2024-03-11 13:51 | Outpatient (AMB) | payer OTHER, SELFPAY ==
--- NOTE | 2024-03-10 22:24 | MHC.OFFVIS ---
Intake Visit Reasons: scrotal cyst Intake Note: New patient Presents for Scrotal Cyst Any Urology Medication: None Antibiotic Allergies: Penicillin Blood Thinners: None Any Family History (Urological): Bladder Cancer? None Prostate Cancer? Yes Father Coal Or Ore Controller Required: No Accompanied by: Self / Same As Patient Allergies Penicillins [PENICILLINS] Allergy (Unknown, Verified 04/01/24 14:54) ITCHING Medication List - Last Reconciled 03/11/24 by Eliezer Woodruff MD atorvastatin 40 mg PO BEDTIME bisacodyl (Dulcolax (bisacodyl)) 20 mg (4 x 5 mg) PO ONCE 1 day blood sugar diagnostic As directed blood-glucose meter As directed blood-glucose meter,continuous (FreeStyle Pedro 3 [place]) As directed blood-glucose sensor (FreeStyle Pedro 3 Sensor device) As directed clotrimazole-betamethasone 1-0.05 % 1 appl topical BID 2 weeks empagliflozin-metformin 12.5-1,000 mg (Synjardy) 1 tab PO BID fosinopril-hydrochlorothiazide 20-12.5 mg 0.5 tabs PO ONCE PRN mecobalamin (vitamin B12) 1,000 mcg PO DAILY 90 days polyethylene glycol 3350 (Miralax) 238 grams PO ONCE HPI Comments Details: Rahul is a 59 year old male who presents with complaints of scrotal cyst. He complains of itching on the scrotum, denies pain, denies irritative voiding symptoms. CoMorbidity - Diabetes. 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 Cognitive needs: No Hearing needs: No Vision needs: Yes (Glasses) Review of Systems Const All systems reviewed & are unremarkable except as noted in HPI and below Reports no additional complaints Eyes Reports no additional complaints ENT Reports no additional complaints Card Reports no additional complaints Resp Reports no additional complaints GI Reports no additional complaints Reports as per HPI Musc Reports no additional complaints Skin/Breast Reports system reviewed and no additional complaints, except as documented Neuro Reports no additional complaints Psych Reports no additional complaints Endo Reports no additional complaints Jair/Lymph Reports no additional complaints Aller/Immun Reports no additional complaints Physical Exam Const General: healthy appearing, no acute distress and well developed Orientation/consciousness: patient oriented x3 HEENT Head: Yes normocephalic and Yes atraumatic Eyes Conjunctivae: conjunctivae normal Neck Neck: Yes normal visual inspection Chest Chest palpation & inspection: normal inspection of the chest Resp Effort & Inspection: normal respiratory effort GI Inspection: Yes normal to inspection Other: scrotum- no cellulitis, testes nontender to palpation Skin General skin exam: no rashes or lesions noted Neuro General: patient oriented x3 Extrem General: No pedal edema Psych Appearance: grossly normal Affect: normal affect Results AMB Urinalysis, Automated UA Leukoctes 0 Adam/uL Last Edit by ANTHONY Torres on 03/11/24 15:52 UA Nitrite Negative Last Edit by ANTHONY Torres on 03/11/24 15:52 UA Urobilinogen 0.2 mg/dL Last Edit by ANTHONY Torres on 03/11/24 15:52 UA Protein 0 mg/dL Last Edit by ANTHONY Torres on 03/11/24 15:52 UA pH 6.0 Last Edit by ANTHONY Torres on 03/11/24 15:52 UA Blood 25 Bubba/uL Last Edit by ANTHONY Torres on 03/11/24 15:52 UA Specific [place] 1.015 Last Edit by ANTHONY Torres on 03/11/24 15:52 UA Ketone Negative Last Edit by ANTHONY Torres on 03/11/24 15:52 UA Bilirubin 0 mg/dL Last Edit by ANTHONY Torres on 03/11/24 15:52 UA Glucose 1000 mg/dL Last Edit by ANTHONY Torres on 03/11/24 15:52 Results Reviewed Results Reviewed: Laboratory Last Values Urine pH (Auto) 6.0 03/11/24 15:51 Specific [place] (Auto) 1.015 03/11/24 15:51 Urine Protein (Auto) 0 mg/dL 03/11/24 15:51 Glucose (UA)(Auto) 1000 mg/dL 03/11/24 15:51 Urine Ketones (Auto) Negative 03/11/24 15:51 Urine Blood (Auto) 25 Bubba/uL 03/11/24 15:51 Urine Nitrite (Auto) Negative 03/11/24 15:51 Urine Bilirubin (Auto) 0 mg/dL 03/11/24 15:51 Urine Urobilinogen (Auto) 0.2 mg/dL 03/11/24 15:51 Leukocyte Esterase (Auto) 0 Adam/uL 03/11/24 15:51 Assessment & Plan Assessment & Plan (1) Screening PSA (prostate specific antigen): Code(s): Z12.5 - Encounter for screening for malignant neoplasm of prostate Category: Medical (2) Epididymal cyst: Code(s): N50.3 - Cyst of epididymis Category: Medical Plan lotrisone cream, scrotal US, PSA screening Orders: Orders PSA,Total (Free>4and<10) 03/11/24 Z12.5 - Encounter for screening for malignant neoplasm of prostate US scrotum 03/11/24 N50.3 - Cyst of epididymis AMB Urinalysis Automated 03/11/24 Z13.9 - Encounter for screening, unspecified Medications: New clotrimazole-betamethasone 1-0.05 % 1 appl topical BID 45 grams 0RF 2 weeks Coding Level of Care Code New Pt Level 3 (52122) Diagnoses Screening PSA (prostate specific antigen) Z12.5 Epididymal cyst N50.3
== END 2024-03-11 16:19 | disposition home or self-care (01) ==
PROVIDERS: PCP Nurse Practitioner Family; Visit Provider Urology
DX: Z12.5 Encounter for screening for malignant neoplasm of prostate (principal); N50.3 Cyst of epididymis
CPT/HCPCS: 99203

== ENCOUNTER → 2024-03-11 13:51 | Outpatient (BNVA) | payer OTHER, SELFPAY | PROVIDERS: PCP Nurse Practitioner Family; Visit Provider Urology | DX: N50.3 Cyst of epididymis (principal) | CPT/HCPCS: 81003; 99202 ==

== ENCOUNTER 2024-03-19 07:35 | Outpatient (REF) | payer OTHER, SELFPAY ==
[2024-03-19 09:21] LABS: PSA,Total (Free>4and<10) 3.02 ng/mL (0.00-4.00)
== END 2024-03-19 07:36 | disposition home or self-care (01) ==
LOC: HO.LAB 07:35
PROVIDERS: PCP Nurse Practitioner Family; Visit Provider Urology
DX: Z12.5 Encounter for screening for malignant neoplasm of prostate (principal)
CPT/HCPCS: 36415; 84153

== ENCOUNTER 2024-04-01 14:52 | Outpatient (AMB) | payer OTHER, SELFPAY ==
--- NOTE | 2024-04-01 14:54 | MHC.PC.OV ---
Vital Signs 04/01/24 14:57 Height 5 ft 9 in Weight 203 lb 6 oz BMI 30.0 BP 146/66 H Blood Pressure Location Lt brachial Position Sitting Respiration 14 Pulse 105 H Pulse Source Pulse Oximeter Pulse Oximetry (%) 95 Oxygen Delivery Method Room Air Intake Visit Reasons: cpe Intake Note: annual cpe Quality Process Lead Required: No Allergies Penicillins [PENICILLINS] Allergy (Unknown, Verified 04/01/24 14:54) ITCHING Tobacco use date assessed: 04/01/24 Dental Screening Dental Screen Date: 04/01/24 Did you have a dental visit in the last 12 months?: Yes Did you have a dental problem in the last 6 months where you did not have access to dental care?: No Was dental information given to patient?: Patient has dentist HPI HPI Comments History of Present Illness Details 58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 Colonoscopy: scheduled 2024 Specialists: Pain Mgmt Urology GI DM: On synjardy. Glucose has been higher recently. Does not want any medication adjustments/additions. CV: On fosinopril/hctz 20mg/12.5mg 1/2 tab PRN SBP > 140. Denies chest pain, shortness of breath ROS CONSTITUTIONAL: Denies weight loss, fever and chills. HEENT: Denies changes in vision and hearing. RESPIRATORY: Denies SOB and cough. CV: Denies palpitations and CP GI: Denies abdominal pain, nausea, vomiting and diarrhea. : Denies dysuria and urinary frequency. MSK: Denies new myalgia and joint pain. SKIN: Denies rash and pruritus. NEUROLOGICAL: Denies headache PSYCHIATRIC: Denies recent changes in mood. PHYSICAL EXAM: GENERAL: Alert and oriented x 3. NAD EYES: EOMI. Anicteric. HENT: Moist mucous membranes. No scleral icterus. No cervical lymphadenopathy. LUNGS: Clear to auscultation bilaterally. CARDIOVASCULAR: Regular rate and rhythm. No murmur. No JVD. ABDOMEN: Soft, non-tender +bs EXTREMITIES: No edema. Non-tender. SKIN: No rashes or lesions. Warm. NEUROLOGIC: No focal neurological deficits. CN II-XII grossly intact PSYCHIATRIC: Cooperative. Appropriate mood and affect [facility] Medical History Hyperlipidemia Chronic neck pain Diabetes mellitus Essential hypertension Surgical History H/O colonoscopy History of hernia surgery Family History Mother Asthma High blood pressure Father Cancer Prostate cancer High blood pressure Social History Housing: House Alcohol intake: current Alcohol intake frequency: holidays/special occasions only Patient Tobacco Use Status: Never used Tobacco e-Cigarette/Vaping Use: Never Used Second Hand Smoke Exposure: No service: No Current occupational status: employed 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 1. Little interest or pleasure in doing things: several days 2. Feeling down, depressed, or hopeless: several days 3. Trouble falling or staying asleep, or sleeping too much: not at all 4. Feeling tired or having little energy: several days 5. Poor appetite or overeating: not at all 6. Feeling bad about yourself - or that you are a failure or have let yourself or your family down: several days 7. Trouble concentrating on things, such as reading the newspaper or watching television: not at all 8. Moving or speaking so slowly that other people could have noticed. Or the opposite - being so fidgety or restless that you have been moving around a lot more than usual: several days 9. Thoughts that you would be better off or of hurting yourself in some way: not at all Total score: 5 85722 - PHQ-9 Billing: Yes Source: Developed by Drs. Cas Lockett, Maggie Bradford, Felice Sr and colleagues, with an educational mansi from [employer]. Thrive Questionnaire Date Thrive assessed: 04/01/24 I am a: Patient What is your living situation today?: I have a steady place to live Within the past 12 months, did the food you bought not last and you didn't have the money to get more?: Sometimes True Within the past 12 months, did you worry whether your food would run out before you got money to buy more?: Sometimes True Do you have trouble paying for medicines?: Yes Do you have trouble getting transportation to medical appointments?: No Do you have trouble paying your heating and electricity bill?: No Do you have trouble taking care of your child, family member or friend?: No Do you have trouble with day-to-day activities such as bathing, preparing meals, shopping, managing finances, etc.?: No Are you currently unemployed and looking for a job?: No Are you interested in more education?: No Please select the resources that you would like help with: None Currently or been in a relationship where the following occur: No concerns reported THRIVE Score: 2 AUDIT C Alcohol Use Questionnaire (AUDIT-C) 1. How often do you have a drink containing alcohol?: Monthly or less 2. How many drinks containing alcohol do you have on a typical day when you are drinking?: 1 or 2 3. How often do you have six or more drinks on one occasion?: Never Total Score: 1 CHRISTOPHER-7 AMB Questionnaire CHRISTOPHER-7 Date CHRISTOPHER - 7 assessed: 04/01/24 Feeling nervous, anxious, or on edge: 1 = Several days Not being able to stop or control worryin = Several days Worrying too much about different things: 1 = Several days Trouble relaxin = Several days Being so restless that it is hard to sit still: 1 = Several days Becoming easily annoyed or irritable: 0 = Not at all Feeling afraid as if something awful might happen: 1 = Several days Total CHRISTOPHER-7 score (0-4 normal; 5-9 mild; 10-14 moderate; 15-21 severe): 6 Source: Developed by Drs. Cas Lockett, Maggie Bradford, Felice Sr and colleagues, with an educational mansi from [employer]. CHRISTOPHER-7 Assessment Billing CHRISTOPHER-7 Assessment Tool: CHRISTOPHER-7 Assessment [id number] Physical exam (Primary Care) Vital Signs: Last Vital Signs Pulse 105 H 04/01/24 14:57 Resp 14 04/01/24 14:57 BP 146/66 H 04/01/24 14:57 Pulse Ox 95 04/01/24 14:57 Oxygen Delivery Method Room Air 04/01/24 14:57 BMI result Body Mass Index 30.0 Tobacco/Smoking Status: Tobacco use Status Tobacco use date assessed 04/01/24 04/01/24 14:56 Patient Tobacco Use Status Never used Tobacco 04/01/24 14:56 e-Cigarette/Vaping Use Never Used 04/01/24 14:56 PHQ-9: PHQ-9 Score PHQ-9: Total score 5 04/03/24 18:47 Thrive Assessment: Date of Thrive Assessment Date Thrive assessed 04/01/24 04/01/24 14:56 Currently or been in a relationship where the following occur: No concerns reported Coding Level of Care Code Est Pt Level 4 (02126) Est Pt Prev Care 40-64y(92395) Diagnoses Physical exam Z00.00 Diabetes mellitus type 2 with complications E11.8 Additional Codes CHRISTOPHER-7 Assessment Billing - CHRISTOPHER-7 Assessment Tool: CHRISTOPHER-7 Assessment 04100 ([id number]) PHQ-9 - 83680 - PHQ-9 Billing: Yes ([id number]) Assessment & Plan Assessment & Plan (1) Physical exam: Code(s): Z00.00 - Encounter for general adult medical examination without abnormal findings Category: Medical Plan: preventive measures for age reviewed. Follow up for diabetes 3 months. Needs to work on increasing glucose (2) Diabetes mellitus type 2 with complications: Comment: Diabetic eye exam - done at [facility] in [place], [place]. May need to place a new referral. We will continue to follow Tdap 05/2023. Plan: Cont Synjardy 12.5-1000mg 1 tab po BID. Freestyle Pedro 3 Code(s): E11.8 - Type 2 diabetes mellitus with unspecified complications Category: Medical Plan: see above
[2024-04-01 14:57] VITALS: BP 146/66; PULSE 105; RESP 14; O2SAT 95
== END 2024-04-01 15:24 | disposition home or self-care (01) ==
PROVIDERS: PCP Nurse Practitioner Family; Visit Provider Internal Medicine
DX: Z00.00 Encounter for general adult medical examination without abnormal findings (principal); E11.8 Type 2 diabetes mellitus with unspecified complications

== ENCOUNTER → 2024-04-01 14:52 | Outpatient (BNVA) | payer OTHER, SELFPAY | PROVIDERS: PCP Nurse Practitioner Family; Visit Provider Internal Medicine | DX: Z00.00 Encounter for general adult medical examination without abnormal findings (principal); E11.8 Type 2 diabetes mellitus with unspecified complications; I10 Essential (primary) hypertension; Z79.899 Other long term (current) drug therapy | CPT/HCPCS: 96127; 99212; 99396 ==

== ENCOUNTER → 2024-05-06 15:21 | Outpatient (BNV) | payer OTHER, SELFPAY | PROVIDERS: PCP Nurse Practitioner Family; Visit Provider Specialist | DX: N43.3 Hydrocele, unspecified (principal) | CPT/HCPCS: 76870 ==

== ENCOUNTER 2024-06-24 09:57 | Day surgery (SDC) | payer OTHER, SELFPAY ==
--- NOTE | 2024-06-23 09:51 | HO.ANESPROP2 ---
Documented by User: Lidia Mcqueen NP 06/23/24 09:51 HPI - Anesthesia Eval Consult details Narrative: 59yo M for Colonoscopy Anesthesia Pre-Procedure Meds Is the patient on any of the following meds?: SGLT2 Inhib PMFSH Active Problems Active Problems: All Active Problems Physical exam (Acute) Epididymal cyst (Acute) Screening PSA (prostate specific antigen) (Acute) Scrotal cyst (Acute) B12 deficiency (Acute) Obesity (BMI 30-39.9) (Acute) Cervical spondylosis with radiculopathy (Acute) Hypertension associated with type 2 diabetes mellitus (Acute) Diabetes mellitus type 2 with complications (Acute) Hyperlipidemia associated with type 2 diabetes mellitus (Acute) Past Medical History Medical History Hyperlipidemia Chronic neck pain Diabetes mellitus Essential hypertension Family History Family History Mother Asthma High blood pressure Father Cancer Prostate cancer High blood pressure Surgical History Surgical History H/O colonoscopy (~2014) History of hernia surgery Social History Social History Housing: House Alcohol intake: current Alcohol intake frequency: holidays/special occasions only Patient Tobacco Use Status: Never used Tobacco e-Cigarette/Vaping Use: Never Used Second Hand Smoke Exposure: No Use of substances other than those prescribed or required for medical reasons: No Are you DNR?: No Advance Directives: No Advance Directives Information Provided: Yes service: No Current occupational status: employed 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 Cognitive needs: No Hearing needs: No Vision needs: Yes (Glasses) Meds Allergies Allergy/AdvReac Type Severity Reaction Status Date / Time Penicillins [PENICILLINS] Allergy Unknown ITCHING Verified 06/24/24 11:35 Home Medications ?Medication ?Instructions ?Recorded ?Confirmed ?Last Taken ?Type blood sugar diagnostic #10 ea 01/11/20 03/11/24 Unknown History blood-glucose meter #1 ea 01/11/20 03/11/24 Unknown History Assessment and Plan Assessment Anesthesia Assessment: Chart Reviewed Documented by User: Juanita Javier MD 06/24/24 12:46 HPI - Anesthesia Eval Anesthesia Pre-Procedure Meds Is the patient on any of the following meds?: SGLT2 Inhib (Last dose of synjardy 06/20/24) [facility] Past Medical History Medical History Hyperlipidemia Chronic neck pain Diabetes mellitus Essential hypertension Family History Family History Mother Asthma High blood pressure Father Cancer Prostate cancer High blood pressure Family history of problems with anesthesia: No Surgical History Surgical History H/O colonoscopy (~2014) History of hernia surgery History of Problems with Anesthesia: No Social History Social History Housing: House Alcohol intake: current Alcohol intake frequency: holidays/special occasions only Patient Tobacco Use Status: Never used Tobacco e-Cigarette/Vaping Use: Never Used Second Hand Smoke Exposure: No Use of substances other than those prescribed or required for medical reasons: No Are you DNR?: No Advance Directives: No Advance Directives Information Provided: Yes service: No Current occupational status: employed 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 Cognitive needs: No Hearing needs: No Vision needs: Yes (Glasses) Meds Allergies Allergy/AdvReac Type Severity Reaction Status Date / Time Penicillins [PENICILLINS] Allergy Unknown ITCHING Verified 06/24/24 11:35 Home Medications ?Medication ?Instructions ?Recorded ?Confirmed ?Last Taken ?Type blood sugar diagnostic #10 ea 01/11/20 03/11/24 Unknown History blood-glucose meter #1 ea 01/11/20 03/11/24 Unknown History Exam Height,Weight and Vital Signs: Height 5 ft 9 in Weight 89.6 kg Vital Signs Temp Pulse Resp BP Pulse Ox O2 Del Method 06/24/24 11:46 98.1 F 89 18 134/69 96 Room Air Pertinent Lab Results Pertinent Lab Results: Lab Results 06/24/24 Range/Units 11:44 POC Glucose 105 (60-115) mg/dL Airway Mallampati Class: II TM Dist: >3cm Neck ROM: Limited Loose/Missing/Broken Teeth: Yes (Missing some teeth. Denies broken or loose teeth) Heart: RRR Lungs: CTAB Assessment and Plan Assessment Anesthesia Assessment: Anesthesia Plan Discussed and Chart Reviewed Final Anesthetic Review Family History of Problems with Anesthesia: No History of Problems with Anesthesia: No NPO: Yes ASA Class: II Final Preanesthetic Review: No Changes in Pt Med Stat, Meds/Allgs Chart Reviewed, Consent Obtained/Reviewed and Anes Risks/Benef Reviewed Patient Risk: Intermediate Procedure Risk: Low Assessment/Block/Sedation in SS: Assess/Block/Sedation-SS Anesthetic Plan Anesthetic Plan: TIVA Disposition: Standard PACU
--- NOTE | 2024-06-24 11:31 | MHC.SHP ---
Pre-Procedural Eval Section A - 24 Hr Update-Section A only Date of Service: 06/24/24 The patient is an INPATIENT: No The patient has been examined within 24 hours of the surgical procedure. The History & Physical has been completed within 30 days and I have reviewed it.: No Section B - Complete if H&P > 30 days Chief Complaint: Surveillance for colon polyps Relevant Family History (Specify if Yes): No Relevant Social History: None Present Medications: see Short Stay Collaborative assessment Medical History: Significant History (Chronic neck pain Diabetes mellitus Essential hypertension) History of Previous Operations: Relevant previous surgery/procedure and date(s) (H/O colonoscopy History of hernia surgery) Allergies: Allergies Allergy/AdvReac Type Severity Reaction Status Date / Time Penicillins [PENICILLINS] Allergy Unknown ITCHING Verified 04/01/24 14:54 Review of Systems Sugical H&P ROS: Negative: Constitution, Cardiovascular, Respiratory and Gastrointestinal Exam Surgical H&P Exam: Normal: Heart, Normal: Lungs and Normal: Abdomen Plan Diagnosis/Plan: Unchanged I have reviewed the history and physical and performed a pertinent physical examination on my patient. No changes have occurred unless specified. Time Spent With Patient Time: Total time managing care of this patient today ____ minutes.
[2024-06-24 11:40] VITALS: BMI 29.2
[2024-06-24 11:46] VITALS: BP 134/69; PULSE 89; RESP 18; TEMP 36.7; O2SAT 96
[2024-06-24 11:49] LABS: Glucose, Whole Blood 105 mg/dL (60-115)
[2024-06-24] MEDS: Lactated Ringers 1,000 ML 100 ML IVCONT (11:57)
--- NOTE | 2024-06-24 13:10 | HO.OPN-COLON ---
Colonoscopy Operative Note Operative Note Date of Service: 06/24/24 Narrative: COLONOSCOPY TILL CECUM WITH BIOPSIES AND SNARE POLYPECTOMY Pre-op diagnosis: Surveillance for colon polyps. Post-op diagnosis:? Colon polyps, Diverticulosis, hemorrhoids Endoscopist:? Stephany Greer MD Anesthesia:?MAC Consent: Indications for the procedure and potential complications of bleeding, perforation, reaction to medications and missed diagnosis were discussed with the patient and informed consent was obtained. Instrument: Olympus CF H 190 L variable stiffness adult colonoscope Monitoring: Vital signs and clinical assessment, intermittent blood pressure monitoring, continuous EKG monitoring, Pulse oximetry and Carbon Dioxide monitoring were done throughout the procedure. Please see anesthesia flowsheet. Colon withdrawl time was 20 minutes. Procedure: The patient was placed in the left lateral decubitis position and pre-procedure medications were administered. After a digital rectal examination of the ano-rectum, the video colonoscope was inserted into the rectum and advanced through the colon to the cecum. The colonoscope was slowly withdrawn in a retrograde panoramic fashion and the colon mucosa was carefully examined including a retroflexed view of the rectum. Findings and interventions are described below. Procedure Difficulty: Left lower quadrant pressure was applied to intubate the cecum Findings: Terminal Ileum: Not evaluated Cecum: Normal Ascending Colon: Normal Transverse Colon: A 4-5 mm sessile polyp - removed with a cold snare. Residual polyp was removed with a cold biopsy Descending Colon: Moderate diverticulosis Sigmoid Colon: A 4-5 mm sessile polyp - removed with a cold biopsy. Moderate diverticulosis Rectum: Normal Ano-rectum: Small internal hemorrhoids Colon preparation: Good after copious irrigation. [place] Bowel Preparation Scale Right colon; 2 Transverse colon: 2 Left colon; 2 (0 = Unprepared colon segment with mucosa not seen due to solid stool that cannot be cleared. 1 = Portion of mucosa of the colon segment seen, but other areas of the colon segment not well seen due to staining, residual stool and/or opaque liquid. 2 = Minor amount of residual staining, small fragments of stool and/or opaque liquid, but mucosa of colon segment seen well. 3 = Entire mucosa of colon segment seen well with no residual staining, small fragments of stool or opaque liquid) Impression and Post Procedure Diagnosis: Colonoscopy Findings: Two small polyps were removed Moderate diverticulosis seen in the left colon Small hemorrhoids on retroflexed exam. Plan: Pt has a FU appointment on 08/03/24 with Damaris Novoa NP Repeat Colonoscopy in 5 years if polyps are adenomatous and 10 year if polyps are hyperplastic. Above findings were reviewed with the patient and relevant handouts were given and the discharge area.
[2024-06-24 13:13] VITALS: BP 93/54; PULSE 84; RESP 23; TEMP 36.1; O2SAT 96
[2024-06-24 13:28] VITALS: BP 115/68; PULSE 74; RESP 20; TEMP 36.4; O2SAT 97
== END 2024-06-24 13:57 | disposition home or self-care (01) ==
PROVIDERS: PCP Nurse Practitioner Family; Visit Provider Internal Medicine Gastroenterology
PROC: 0DJD8ZZ Inspection of Lower Intestinal Tract, Via Natural or Artificial Opening Endoscopic (ICD-10-PCS; CPT 45378; principal; 2024-06-24 12:20)
DX: Z12.11 Encounter for screening for malignant neoplasm of colon (principal); D12.3 Benign neoplasm of transverse colon; D12.5 Benign neoplasm of sigmoid colon; K57.30 Diverticulosis of large intestine without perforation or abscess without bleeding; K64.8 Other hemorrhoids; E11.9 Type 2 diabetes mellitus without complications; I10 Essential (primary) hypertension; E78.5 Hyperlipidemia, unspecified
CPT/HCPCS: 45385; 45380; 69209; 82947; 83036; 88305; 96127; 99212; J2003; J2704

== ENCOUNTER → 2024-06-24 09:57 | Outpatient (BNV) | payer OTHER, SELFPAY | PROVIDERS: PCP Nurse Practitioner Family; Visit Provider Internal Medicine Gastroenterology | DX: Z12.11 Encounter for screening for malignant neoplasm of colon (principal); Z86.0100 Personal history of colon polyps, unspecified; D12.3 Benign neoplasm of transverse colon; D12.5 Benign neoplasm of sigmoid colon; K57.90 Diverticulosis of intestine, part unspecified, without perforation or abscess without bleeding; K64.8 Other hemorrhoids | CPT/HCPCS: 45380; 45385 ==

== ENCOUNTER 2024-06-24 14:23 | Outpatient (AMB) | payer OTHER, SELFPAY ==
--- NOTE | 2024-06-24 14:41 | A.OFFPC_ITS ---
Vital Signs 06/24/24 14:48 Height 5 ft 9 in Weight 201 lb BMI 29.7 BP 128/72 Blood Pressure Location Lt brachial Position Sitting Respiration 12 Pulse 86 Pulse Source Pulse Oximeter Temp 97.2 F Temp Source Oral Pulse Oximetry (%) 98 Oxygen Delivery Method Room Air Intake Visit Reasons: Med Management Intake Note: Follow up on med management, and also Patients wants ear looked at Hair Assistant Required: No Allergies Penicillins [PENICILLINS] Allergy (Unknown, Verified 06/24/24 14:53) ITCHING Medication List - Last Reconciled 06/24/24 by Suzie Harris, SOLAR SITE ASSESSMENT SPECIALIST-BC atorvastatin 40 mg PO BEDTIME blood sugar diagnostic As directed blood-glucose meter As directed blood-glucose meter,continuous (FreeStyle Pedro 3 [place]) As directed blood-glucose sensor (FreeStyle Pedro 3 Sensor device) As directed clotrimazole-betamethasone 1-0.05 % 1 appl topical BID 2 weeks empagliflozin-metformin 12.5-1,000 mg (Synjardy) 1 tab PO BID fosinopril-hydrochlorothiazide 20-12.5 mg 0.5 tabs PO ONCE PRN mecobalamin (vitamin B12) 1,000 mcg PO DAILY 90 days Tobacco use date assessed: 06/24/24 Dental Screening Dental Screen Date: 06/24/24 Did you have a dental visit in the last 12 months?: Yes Did you have a dental problem in the last 6 months where you did not have access to dental care?: No Was dental information given to patient?: Patient has dentist HPI HPI Comments History of Present Illness Details 59 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 Colonoscopy: 06/24/24 C + polyp, diverticulosis, hemorrhoids repeat 5-10 years patho pending Specialists: Pain Mgmt Urology GI Here today for chronic dz mgmt HTN: Taking fosinopril/hctz 20mg/12.5mg 1 PRN SBP > 140. Home log reviewed, looks great actually with very sparing use of PRN medication. + effects from the PRN use w/o side effects. B12 def: cont to take supplement, due for labs DM Hga1c today 6.7% Insurance change has led to lapse of CGM Using fingerstick Using Freestyle Pedro 3 Tolerant with Synjardy but reduced to 1/2 dose.Insurance will no longer pay for this HLD: LDL at goal on statin, tolerating w/o side effects. Scrotal cyst: uro consult, cream with + effect. bilat ears feel blocked Exam: Awake alert oriented very pleasant Sclera is nonicteric Mucous membranes moist Regular rate and rhythm Lung sounds clear auscultation No hepatic tenderness with palp, abd soft. Bilateral lower extremities without edema, skin intact, pedal pulses within normal limits bilat, normal monofilament and vibratory sensations bilat - Labs: - Hemoglobin A1c: Current 6.7%, previously 6.9% - Blood glucose readings: 98 mg/dL and 1 07 mg/dL A&P: 1. Type 2 Diabetes Mellitus: We will adj ust medications, switching to metformin 1000mg QD and Jardiance 25mg QD due to insurance issues with Synjardy. We aim for continued stable glucose levels. NN referral to help w/ CGM issues 2. Vitamin B12 Deficiency: Maintain curr ent vitamin B12 supplementation regimen. 3. Essential Hypertension: Continue curr ent management and monitor 4. Hyperlipidemia: Continue atorvastatin therapy and monitor with blood tests. 5. Earwax Buildup: Treat with ear irriga tion. Check labs today. RTO 4 mo routine chronic dz mgmt, labs 1 week before This note is constructed using voice recognition software. While every effort has been made to ensure accuracy in recorder gravity prospecting, still errors may have been included Sometimes, these errors may affect the content or meaning of the given sentence . Total time spent caring for the patient today was 45 minutes. This includes time spent before the visit reviewing the chart, time spent during the visit, and time spent after the visit on documentation PFSH Medical History (Updated 06/24/24 @ 18:09 by AMY Irwin) Chronic neck pain Diabetes mellitus Essential hypertension Hyperlipidemia Surgical History (Updated 06/24/24 @ 14:55 by AMY Irwin) H/O colonoscopy (~06/2024) History of hernia surgery Family History Mother Asthma High blood pressure Father Cancer Prostate cancer High blood pressure Social History Housing: House Alcohol intake: current Alcohol intake frequency: holidays/special occasions only Patient Tobacco Use Status: Never used Tobacco e-Cigarette/Vaping Use: Never Used Second Hand Smoke Exposure: No service: No Current occupational status: employed 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 1. Little interest or pleasure in doing things: several days 2. Feeling down, depressed, or hopeless: several days 3. Trouble falling or staying asleep, or sleeping too much: not at all 4. Feeling tired or having little energy: several days 5. Poor appetite or overeating: not at all 6. Feeling bad about yourself - or that you are a failure or have let yourself or your family down: not at all 7. Trouble concentrating on things, such as reading the newspaper or watching television: not at all 8. Moving or speaking so slowly that other people could have noticed. Or the opposite - being so fidgety or restless that you have been moving around a lot more than usual: not at all 9. Thoughts that you would be better off or of hurting yourself in some way: not at all Total score: 3 Depression Screening Interpretation: Negative Depression Screening Done: Yes 46352 - PHQ-9 Billing: Yes Source: Developed by Drs. Cas Lockett, Maggie Bradford, Felice Sr and colleagues, with an educational mansi from [employer]. Thrive Questionnaire Date Thrive assessed: 06/24/24 I am a: Patient What is your living situation today?: I have a steady place to live Within the past 12 months, did the food you bought not last and you didn't have the money to get more?: I choose not to answer this question Within the past 12 months, did you worry whether your food would run out before you got money to buy more?: I choose not to answer this question Do you have trouble paying for medicines?: I choose not to answer this question Do you have trouble getting transportation to medical appointments?: I choose not to answer this question Do you have trouble paying your heating and electricity bill?: I choose not to answer this question Do you have trouble taking care of your child, family member or friend?: I choose not to answer this question Do you have trouble with day-to-day activities such as bathing, preparing meals, shopping, managing finances, etc.?: No Are you currently unemployed and looking for a job?: I choose not to answer this question Are you interested in more education?: I choose not to answer this question Please select the resources that you would like help with: None Currently or been in a relationship where the following occur: I choose not to answer THRIVE Score: 0 AUDIT C Alcohol Use Questionnaire (AUDIT-C) 1. How often do you have a drink containing alcohol?: Never Total Score: 0 Score Reviewed/Action Taken: Yes CHRISTOPHER-7 AMB Questionnaire CHRISTOPHER-7 Date CHRISTOPHER - 7 assessed: 06/24/24 Feeling nervous, anxious, or on edge: 0 = Not at all Not being able to stop or control worryin = Not at all Worrying too much about different things: 0 = Not at all Trouble relaxin = Not at all Being so restless that it is hard to sit still: 0 = Not at all Becoming easily annoyed or irritable: 0 = Not at all Feeling afraid as if something awful might happen: 0 = Not at all Total CHRISTOPHER-7 score (0-4 normal; 5-9 mild; 10-14 moderate; 15-21 severe): 0 Source: Developed by Drs. Cas Lockett, Maggie Bradford, Felice Sr and colleagues, with an educational mansi from [employer]. CHRISTOPHER-7 Assessment Billing CHRISTOPHER-7 Assessment Tool: CHRISTOPHER-7 Assessment 08786 Physical exam (Primary Care) Vital Signs: Last Vital Signs Temp 97.2 F 06/24/24 14:48 Pulse 86 06/24/24 14:48 Resp 12 06/24/24 14:48 BP 128/72 06/24/24 14:48 Pulse Ox 98 06/24/24 14:48 Oxygen Delivery Method Room Air 06/24/24 14:48 BMI result Body Mass Index 29.7 BMI Assessment/Plan discussion: High BMI High, discussed plan: lifestyle Tobacco/Smoking Status: Tobacco use Status Tobacco use date assessed 06/24/24 06/24/24 14:44 Patient Tobacco Use Status Never used Tobacco 06/24/24 14:44 e-Cigarette/Vaping Use Never Used 06/24/24 14:44 PHQ-9: PHQ-9 Score PHQ-9: Total score 3 06/24/24 15:16 Depression Screening Interpretation: Negative Thrive Assessment: Date of Thrive Assessment Date Thrive assessed 06/24/24 06/24/24 14:44 Currently or been in a relationship where the following occur: I choose not to answer Office Procedures Cerumen Removal From which ear canal was the cerumen removed: bilateral Removal: irrigation Notes: patient tolerated procedure well, no complications and ear canal clear [id number] Irrigation/Lavage Diabetic Foot Exam G9226 - Diabetic Foot Exam Results AMB Hemoglobin A1c AMB Hemoglobin A1c 6.7 % Last Edit by Neel Louis MA on 06/24/24 15:00 Results Reviewed Results Reviewed: Laboratory Last Values Hgb A1c (Clinic) 6.7 % (4.0-6.0) H 06/24/24 14:51 Coding Level of Care Code Est Pt Level 5 (35396) Complex EM visit Add On G2211 Diagnoses Hyperlipidemia associated with type 2 diabetes mellitus E11.69; E78.5 Diabetes mellitus type 2 with complications E11.8 Hypertension associated with type 2 diabetes mellitus E11.59; I15.2 B12 deficiency E53.8 Scrotal cyst L72.9 Obesity (BMI 30-39.9) E66.9 Impacted cerumen, bilateral H61.23 CPT Codes Office Procedure - CPT: 96272-Gvs Irrigation/Lavage ([id number]) Diabetic Foot Exam - CPT: G9226 - Diabetic Foot Exam ([id number]) Additional Codes CHRISTOPHER-7 Assessment Billing - CHRISTOPHER-7 Assessment Tool: CHRISTOPHER-7 Assessment 64334 ([id number]) PHQ-9 - 93773 - PHQ-9 Billing: Yes ([id number]) Assessment & Plan Assessment & Plan (1) Hyperlipidemia associated with type 2 diabetes mellitus: Code(s): E11.69 - Type 2 diabetes mellitus with other specified complication; E78.5 - Hyperlipidemia, unspecified Category: Medical (2) Diabetes mellitus type 2 with complications: Comment: Diabetic eye exam - done at [facility] in [place], [place]. May need to place a new referral. We will continue to follow Tdap 05/2023. Jaykunal Vasquez 3 Code(s): E11.8 - Type 2 diabetes mellitus with unspecified complications Category: Medical (3) Hypertension associated with type 2 diabetes mellitus: Comment: Goal of less than 130/80. Code(s): E11.59 - Type 2 diabetes mellitus with other circulatory complications; I15.2 - Hypertension secondary to endocrine disorders Category: Medical (4) B12 deficiency: Code(s): E53.8 - Deficiency of other specified B group vitamins Category: Medical (5) Scrotal cyst: Code(s): L72.9 - Follicular cyst of the skin and subcutaneous tissue, unspecified Category: Medical (6) Obesity (BMI 30-39.9): Comment: assoc w/ DM and HLD Code(s): E66.9 - Obesity, unspecified Category: Medical (7) Impacted cerumen, bilateral: Code(s): H61.23 - Impacted cerumen, bilateral Plan . Orders: Orders AMB Hemoglobin A1c Today Z13.9 - Encounter for screening, unspecified Comprehensive Met. Panel Today E11.59 - Type 2 diabetes mellitus with other circulatory complications, E11.69 - Type 2 diabetes mellitus with other specified complication, E11.8 - Type 2 diabetes mellitus with unspecified complications, E53.8 - Deficiency of other specified B group vitamins, E78.5 - Hyperlipidemia, unspecified, I15.2 - Hypertension secondary to endocrine disorders Microalbumin, Random (w Creat) Today E11.59 - Type 2 diabetes mellitus with other circulatory complications, E11.69 - Type 2 diabetes mellitus with other specified complication, E11.8 - Type 2 diabetes mellitus with unspecified complications, E53.8 - Deficiency of other specified B group vitamins, E78.5 - Hyperlipidemia, unspecified, I15.2 - Hypertension secondary to endocrine disorders Hemoglobin A1c 4 Months E11.59 - Type 2 diabetes mellitus with other circulatory complications, E11.8 - Type 2 diabetes mellitus with unspecified complications, E53.8 - Deficiency of other specified B group vitamins, I15.2 - Hypertension secondary to endocrine disorders Vitamin B12 and Folate 4 Months E11.59 - Type 2 diabetes mellitus with other circulatory complications, E11.8 - Type 2 diabetes mellitus with unspecified complications, E53.8 - Deficiency of other specified B group vitamins, I15.2 - Hypertension secondary to endocrine disorders Lipid Panel Today E11.59 - Type 2 diabetes mellitus with other circulatory complications, E11.69 - Type 2 diabetes mellitus with other specified complication, E11.8 - Type 2 diabetes mellitus with unspecified complications, E53.8 - Deficiency of other specified B group vitamins, E78.5 - Hyperlipidemia, unspecified, I15.2 - Hypertension secondary to endocrine disorders Vitamin B12 and Folate Today E11.59 - Type 2 diabetes mellitus with other circulatory complications, E11.69 - Type 2 diabetes mellitus with other specified complication, E11.8 - Type 2 diabetes mellitus with unspecified complications, E53.8 - Deficiency of other specified B group vitamins, E78.5 - Hyperlipidemia, unspecified, I15.2 - Hypertension secondary to endocrine disorders Comprehensive Met. Panel 4 Months E11.59 - Type 2 diabetes mellitus with other circulatory complications, E11.8 - Type 2 diabetes mellitus with unspecified complications, E53.8 - Deficiency of other specified B group vitamins, I15.2 - Hypertension secondary to endocrine disorders Medications: New empagliflozin (Jardiance) 25 mg PO DAILY 90 tabs 2RF metformin ER 1,000 mg (2 x 500 mg) PO QPM 180 tabs 2RF Changed From fosinopril-hydrochlorothiazide 20-12.5 mg 0.5 tabs PO ONCE PRN 30 tabs 3RF SBP > 140 To fosinopril-hydrochlorothiazide 20-12.5 mg 1 tab PO DAILY PRN 30 tabs 3RF SBP > 140 Refilled blood-glucose meter,continuous (FreeStyle Pedro 3 [place]) As directed 1 ea 0RF E11.8 - Type 2 diabetes mellitus with unspecified complications atorvastatin 40 mg PO BEDTIME 90 tabs 2RF blood-glucose sensor (FreeStyle Pedro 3 Sensor device) As directed 2 ea 11RF E11.8 - Type 2 diabetes mellitus with unspecified complications Discontinued empagliflozin-metformin 12.5-1,000 mg (Synjardy) Discontinued Reason: Insurance Denied 1 tab PO BID 180 tabs 1RF
[2024-06-24 14:48] VITALS: BP 128/72; PULSE 86; RESP 12; TEMP 36.2; O2SAT 98; BMI 29.7
--- OUTSIDE RECORDS SUMMARY | 2024-06-24 16:41 | XMS_ITS | Data Portability ---
Author Organization [facility], , [facility] Address [address] [place] [address] Care Team Providers Care Systems Designer Name Role Phone AMARI FIGUEROA Primary Care Provider Assessment No assessment recorded. Plan of Treatment Reminders Order Date Submit Date Provider Last Modified By Organization Details Last Modified Time Details Appointments None recorded. Lab PSA, serum or plasma 2014 015 [facility], [address] [place] [address], [address], 5 10:13:44 lipid panel, serum 2014 015 [facility], [address] [place] [address], [address], 5 09:01:08 BMP, serum or plasma 2014 015 [facility], [address] [place] [address], [address], 5 09:01:07 urinalysis , dipstick 2013 014 [facility], [address] [place] [address], [address], 4 16:51:03 basic metabolic panel 2011 012 [facility], [address] [place] [address], [address], 3 03:51:41 lipid panel 2011 012 [facility], [address] [place] [address], [address], 3 03:51:41 Referral urologist referral - 49 year old with c/o erectile dysfunctio n. Wants consult. 2014 015 SOLOMON Not available 6 05:03:04 Procedures vision color blindness screen (PROC) 2013 014 [facility], [address] [place] [address], [address], 4 16:51:03 Surgeries colonoscop y (SURG) 2014 015 idania Reed MD, [address] [place], [address], 5 09:42:13 Imaging audiogram 2013 014 [facility], [address] [place] [address], [address], 4 16:51:03 Medication Orders Cialis 20 mg tablet 2014 015 INTERFACE [id number], [address], [place], [address], 5 18:39:11 Patient TargetsNo targets recorded. Patient Instructions Encounter Date Encounter Id Patient Instructions Last Modified By Organization Details Last Modified Time 04/05/2012 [id number] My Health To Do List [email or web address] Not available 04/05/2012 13:56:04 04/18/2013 [id number] Well Visit, Ages 18 to 65: Care Instructions aquelhas Not available 04/25/2013 11:59:01 vision screen* [email or web address] Not available 0 04/24/2013 16:51:03 egraef Not available 2013 16:51:03 12/12/2014 [id number] After a discussi on of treatment options, which included consideration of best practices and patient preferences, the following treatment plan and objectives were adopted: Schedule a physical exam. [email or web address] Not available 12/12/2014 14:14:43 01/16/2015 [id number] Well Visit 50 to 65: Care Instructions Not available 01/17/2015 09:31:30 After a discussi on of treatment options, which included consideration of best practices, patient preferences, and the patient? s individual lifestyle and treatment goals, as well as consideration and attempted mitigation of any barriers to meeting the patient? s goals, the following treatment plan and objectives were adopted:? ? ? See above. [email or web address] Not available 01/16/2015 18:39:09 Reason for Referral Urologist Referral for Prima ry erectile dysfunction 49 year old with c/o erectile dysfunction. Wants consult. Referring Physician: Pamela Jimenez, Family Medicine, Encounter Date: 01/16/2015 Results Created Date Observation Date Name Description Value Unit Range Abnormal Flag Note LastModifiedBy Organization Detail LastModifiedTime 04/20/19 14 04/20/2013 urina lysis , dipst ick Glucose Negati ve Not Available [address], [address], 04/20/2013 10:47:19 04/20/19 14 04/20/2013 urina lysis , dipst ick Bilirubin Negati ve Not Available [address], [address], 04/20/2013 10:47:19 04/20/19 14 04/20/2013 urina lysis , dipst ick Ketone Negati ve Not Available [address], [address], 04/20/2013 10:47:19 04/20/1904/20/2013 urina lysis , dipst ick Specific Guin 1.025 Not Available [address], [address], 04/20/2013 10:47:19 04/20/1904/20/2013 urina lysis , dipst ick Blood Negati ve Not Available [address], [address], 04/20/2013 10:47:19 04/20/1904/20/2013 urina lysis , dipst ick pH 7.0 Not Available [address], [address], 04/20/2013 10:47:19 04/20/19 14 04/20/2013 urina lysis , dipst ick Protein Negati ve Not Available [address], [address], 04/20/2013 10:47:19 04/20/19 14 04/20/2013 urina lysis , dipst ick Urobilinogen .2 Not Available [address], [address], 04/20/2013 10:47:19 04/20/19 14 04/20/2013 urina lysis , dipst ick Nitrite negati ve Not Available [address], [address], 04/20/2013 10:47:19 04/20/19 14 04/20/2013 urina lysis , dipst ick Leukocytes Negati ve Not Available [address], [address], 04/20/2013 10:47:19 04/18/19 14 04/18/2013 visio n scree n* Right Not Available [address], [address], 04/18/2013 15:08:06 04/18/19 14 04/18/2013 visio n scree n* Left Not Available [address], [address], 04/18/2013 15:08:06 04/18/19 14 04/18/2013 visio n scree n* Both Not Available [address], [address], 04/18/2013 15:08:06 04/18/19 14 04/18/2013 visio n scree n* Corrective Lenses no correc tive lenses Not Available [address], [address], 04/18/2013 15:08:06 04/18/19 14 04/18/2013 visio n color blind ness scree n (PROC ) Result normal normal Not Available [address], [address], 04/18/2013 15:08:06 04/18/19 14 04/18/2013 audio gram Result pt was ok for 25 dz for both ears Not Available [address], [address], 04/18/2013 15:08:06 04/05/20 12 04/07/2012 lipid panel cholesterol 183 mg/dL <200 mg/dL lissette able 200-2 39 mg/dL borde rline high >240 mg/dL high Not Available [address], [address], 04/07/2012 09:41:23 04/05/20 12 04/07/2012 lipid panel triglyceride s 198 mg/dL <150 mg/dL zahida l 150-1 99 mg/dL borde rline high 200-4 99 mg/dL high >500 mg/dL very high Not Available [address], [address], 04/07/2012 09:41:23 04/05/2004/07/2012 lipid panel direct HDL 31 mg/dL Not Available [address], [address], 04/07/2012 09:41:23 04/05/2004/07/2012 lipid panel direct LDL 109 mg/dL risk categ ory LDL goal _ CHD or CHD risk equiv alent s <100 mg/dL (10-y ear risk >20%) 2+ risk facto rs <130 mg/dL (10-y ear risk <= 20%) 0-1 risk facto r? <160 mg/dL ? chacho t all peopl e with 0-1 risk facto r have a 10 year risk <10%, thus 10 year risk asses ment in peopl e with 0-1 risk facto r IS not tomas cheungy. Not Available [address], [address], 04/07/2012 09:41:23 04/05/2004/07/2012 basic metab olic panel glucose 97 mg/dL 70-100 Not Available [address], [address], 04/07/2012 09:41:24 04/05/2004/07/2012 basic metab olic panel BUN 9 mg/dL 7-18 Not Available [address], [address], 04/07/2012 09:41:24 04/05/2004/07/2012 basic metab olic panel creatinine 1.2 mg/dL 0.8-1. 3 Not Available [address], [address], 04/07/2012 09:41:24 04/05/2004/07/2012 basic metab olic panel B/C 7.5 ratio Not Available [address], [address], 04/07/2012 09:41:24 04/05/2004/07/2012 basic metab olic panel GFR 69.0 mL/mi n recom cara d GFR by the natio nal kidne y found ation >60 mL/mi n/1.7 3m2 - zahida l <60 mL/mi n/1.7 3m2 - chron ic kidne y disea se <15 mL/mi n/1.7 3m2 - kidne y failu re Not Available [address], [address], 04/07/2012 09:41:24 04/05/2004/07/2012 basic metab olic panel GFR - if 83.5 mL/mi n for afric an ameri can patie nts: resul ts multi plied by 1.21 Not Available [address], [address], 04/07/2012 09:41:24 04/05/20 12 04/07/2012 basic metab olic panel sodium 139 mmol/ L 136-14 5 Not Available [address], [address], 04/07/2012 09:41:24 04/05/20 12 04/07/2012 basic metab olic panel potassium 4.2 mmol/ L 3.5-5. 1 Not Available [address], [address], 04/07/2012 09:41:24 04/05/2004/07/2012 basic metab olic panel chloride 102 mmol/ L 96-107 Not Available [address], [address], 04/07/2012 09:41:24 04/05/2004/07/2012 basic metab olic panel _anion gap 9.0 Not Available [address], [address], 04/07/2012 09:41:24 04/05/2004/07/2012 basic metab olic panel CO2 28 mmol/ L 21-32 Not Available [address], [address], 04/07/2012 09:41:24 04/05/2004/07/2012 basic metab olic panel calcium 9.3 mg/dL 8.5-10 .3 Not Available [address], [address], 04/07/2012 09:41:24 01/17/20 15 01/17/2015 BMP, serum or plasm a glucose 97 mg/dL 70-100 Not Available [address], [address], 01/17/2015 09:01:07 01/17/20 15 01/17/2015 BMP, serum or plasm a BUN 13 mg/dL 7-18 Not Available [address], [address], 01/17/2015 09:01:07 01/17/20 15 01/17/2015 BMP, serum or plasm a creatinine 0.9 mg/dL 0.8-1. 3 Not Available [address], [address], 01/17/2015 09:01:07 01/17/2001/17/2015 BMP, serum or plasm a B/C 14.4 ratio Not Available [address], [address], 01/17/2015 09:01:07 01/17/2001/17/2015 BMP, serum or plasm a GFR -non 94.9 mL/mi n Recom cara d GFR by the Natio nal Kidne y Found ation >60 mL/mi n/1.7 3m2 - Zahida l <60 mL/mi n/1.7 3m2 - Chron ic Kidne y Disea se <15 mL/mi n/1.7 3m2 - Kidne y Failu re Not Available [address], [address], 01/17/2015 09:01:07 01/17/20 15 01/17/2015 BMP, serum or plasm a GFR - if 114.9 mL/mi n For Afric an Ameri can patie nts: Resul ts Multi plied by 1.21 Not Available [address], [address], 01/17/2015 09:01:07 01/17/2001/17/2015 BMP, serum or plasm a sodium 141 mmol/ L 136-14 5 Not Available [address], [address], 01/17/2015 09:01:07 01/17/20 15 01/17/2015 BMP, serum or plasm a potassium 4.8 mmol/ L 3.5-5. 1 Not Available [address], [address], 01/17/2015 09:01:07 01/17/2001/17/2015 BMP, serum or plasm a chloride 105 mmol/ L 96-107 Not Available [address], [address], 01/17/2015 09:01:07 01/17/2001/17/2015 BMP, serum or plasm a anion gap 6.4 5.0-15 .0 Not Available [address], [address], 01/17/2015 09:01:07 01/17/2001/17/2015 BMP, serum or plasm a CO2 30 mmol/ L 21-32 Not Available [address], [address], 01/17/2015 09:01:07 01/17/2001/17/2015 BMP, serum or plasm a calcium 9.4 mg/dL 8.5-10 .3 Not Available [address], [address], 01/17/2015 09:01:07 01/17/2001/17/2015 lipid panel , serum cholesterol 187 mg/dL <200 mg/dl Lissette able 200-2 39 mg/dl Borde rline High >240 mg/dl High Not Available [address], [address], 01/17/2015 09:01:08 01/17/2001/17/2015 lipid panel , serum triglyceride s 160 mg/dL <150 mg/dL Zahida l 150-1 99 mg/dL Borde rline High 200-4 99 mg/dL High >500 mg/dL Very High Not Available [address], [address], 01/17/2015 09:01:08 01/17/2001/17/2015 lipid panel , serum direct HDL 32 mg/dL Not Available [address], [address], 01/17/2015 09:01:08 01/17/20 15 01/17/2015 LDL, calcu lated , serum (OBS) LDL - calculated 123.0 RISK CATEG ORY LDL GOAL _ CHD or CHD Risk Equiv alent s <100 mg/dl (10-y ear risk >20%) 2+ Risk Facto rs <130 mg/dl (10-y ear risk <= 20%) 0-1 Risk Facto r? <160 mg/dl ? Almos t all peopl e with 0-1 risk facto r have a 10 year risk <10%, thus 10 year risk asses ment in peopl e with 0-1 risk facto r is not neces sanjeev. Not Available [address], [address], 01/17/2015 09:01:09 01/17/20 15 01/19/2015 PSA, serum or plasm a PSA 1.30 NG/mL 0.00-4 .00 Not Available [address], [address], 01/19/2015 10:13:44 Result Notes Documentation Provider Name and Address Organization Details Recorded Time Pathology Study : colon polyps - tubular adenomas Val Farris NP [address] [place] [address], [phone], [facility] 03/28/2015 12:37:52 Pathology Study : colon polyps - tubular adenomas - done at [facility] Val Farris NP [address] [place] [address], [phone], [facility] 04/02/2015 17:41:35 Problems Name Problem SNOMED Code Status Onset Date Resolution Date Notes Provider Name and Address Organization Details Recorded Time Mixed anxiety and depressive disorder 839932139 Active 2014 Occ. symptoms Pamela Jimenez NP [address] [place], [place] [address]n[place], [address], [facility] 5 10:33:40 Problem Notes None recorded. Procedures Surgical History Date Name Laterality Status Provider Name and Address Organization Details Recorded Time 5 Cerumen Removal completed Haily WhitleyYEE [facility] 01/16/2015 12:07:24 3 Cerumen Removal completed Agnes YEE Bean [facility] 04/16/2012 10:12:25 Hernia Repair completed Val Farris NP [address] [place] [address], [phone], [facility] 04/05/2012 14:09:18 Imaging Results None recorded. Procedure Notes None recorded. Medical Equipment None Reported. Allergies Allergen ID Allergen Name Allergen Category Reaction Reaction Severity Criticality Documentation Date Start Date Code Code System Note Provider Name and Address Organization Details Recorded Time 11190606 Product containin g penicilli n (product) medicatio n Not available Not available Not available 03/03/2012 43382 8001 SNOMED Swell ing of face/ rash Pamela Jimenez NP [address] [place], [place] [address], [address], [facility] 5 10:31:44 [id number] Viagra medicatio n diarrhea Not available Not available 12/12/2014 94715 5 RxNorm Pamela Jimenez NP [address] [place] [address], [address], [facility] 5 10:31:44 Medications Name Sig Start Date Stop Date Status Note LastModified by Organization Details LastModified Time Cialis 20 mg tablet Take 1 tablet by oral route every other day as needed for erectile dysfunctio n. 015 active Not Available Not Available Not Avai lable Cialis active will check dose Not Available Not Available Not Available Suprep Bowel Prep Kit 17.5 gram-3.13 gram-1.6 gram oral solution active Not Available Not Available Not Available Vitals Date Recorded Body height Body weight Body mass index (BMI) Systolic blood pressure Diastolic blood pressure Provider Name and Address Organization Details Last Updated DateTime 04/05/2012 177.8 cm 49584.51 215 g 28 kg/m2 110 mm[Hg] 60 mm[Hg] Nahomy Garcia [facility] 2 13:56:04 Date Recorded Body height Body weight Body mass index (BMI) Systolic blood pressure Diastolic blood pressure Provider Name and Address Organization Details Last Updated DateTime 04/16/2012 177.8 cm 02087.10 452 g 28.1 kg/m2 122 mm[Hg] 70 mm[Hg] Fabiana rivera [facility] 3 09:52:05 Date Recorded Body weight Body height Body mass index (BMI) Systolic blood pressure Diastolic blood pressure Provider Name and Address Organization Details Last Updated DateTime 04/18/2013 70794.10 452 g 177.8 cm 28.1 kg/m2 126 mm[Hg] 72 mm[Hg] Tania Rodarte [facility] 4 14:44:58 Date Recorded Body weight Body height Body temperature Heart rate Body mass index (BMI) Systolic blood pressure Diastolic blood pressure Provider Name and Address Organization Details Last Updated DateTime 5 66928.2 5111 g 177.8 cm 98 [degF] 88 /min 29.1 kg/m2 128 mm[Hg] 58 mm[Hg] Tanialita Rodarte [facility] 5 10:20:00 Date Recorded Body height Body mass index (BMI) Body weight Heart rate Systolic blood pressure Diastolic blood pressure Provider Name and Address Organization Details Last Updated DateTime 5 177.8 cm 27 kg/m2 20900.3 6556 g 72 /min 118 mm[Hg] 62 mm[Hg] Tania Rodarte [facility] 5 10:52:01 Social History Question Answer Notes LastModified by Organizat ion Details LastModified Time Tobacco Smoking Status [facility] 11:32:32 What Is Your Level Of Alcohol Consumption? Occasional 1 Every 3 Month Information not available 12/12/2014 What Is Your Level Of Caffeine Consumption? None Information not available 04/05/2012 How Much Tobacco Do You Chew? None Information not available 01/16/2015 What Type Of Diet Are You Following? REGULAR Information not available 04/05/2012 Which Illicit Or Recreational Drugs Have You Used? 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 [facility] Information not available 04/05/2012 Patient Has Health Care Proxy Signed And In Chart No Forms Given [email or web address] Information not available 03/26/2018 Marital Status [email or web address] Informatio n not available 04/05/2012 Mosquito Repellent Used Routinely No Information not available 01/16/2015 How Many Children Do You Have? 4 3 Still At Home - 1 In [place] Information not available 04/05/2012 Seat Belts Used Routinely Yes Information not available 04/05/2012 Smoke Alarm In Home Yes Information not available 04/05/2012 Do You Use Sunscreen Routinely? Yes Information not available 01/16/2015 Sex: Unknown Functional Status None recorded. Mental Status None recorded. Family History Relationship Description Onset Age of this Age Resolved Age Notes LastModified by Organization Details LastModified Time Father Heart disease Over 60 [email or web address] Not available 01/16/2015 11:00:17 Father Malignant neoplastic disease Neck msharron Not available 2014 11:00:17 Paternal Grandmother Diabetes mellitus msharron Not available 2014 11:00:17 Mother Asthma msharron Not available 1 11:00:17 Maternal Uncle Depressive disorder msharron Not available 2014 11:00:17 Maternal Uncle Alcoholism msharron Not available 2014 11:00:17 Paternal Uncle Malignant tumor of colon msharron Not available 2014 11:00:17 Paternal Uncle Malignant tumor of prostate msharron Not available 2014 11:00:17 Medical History Condition Response Anxiety Y Depression Y Immunizations Vaccine Type Date Status Note Provider Nam e and Address Organization Details Recorded Time Influenza, split virus, trivalent, PF 04/05/2012 completed Not Available [facility] 2019 02:18:32 Tdap 01/16/2015 completed Not Available [facility] 04/23/2019 02:28:18 Past Encounters Encounter ID Performer Location Encounter Start Date Encounter Closed Date Diagnosis/Indication Diagnosis SNOMED-CT Code Diagnosis ICD10 Code Diagnosis Note [id number] STIVEN Garcia , [facility], [address] [place] [address] 03/03/2012 11:01:29 03/03/2012 12:00:30 [id number] JOSH Gale, [facility], [address] [place] [address] 04/05/2012 13:38:29 04/05/2012 15:23:21 [id number] Val Farris NP , [facility], [address] [place] [address] 04/16/2012 09:04:04 04/19/2012 10:44:36 [id number] Klaus Best , [facility], [address] [place] [address] 04/18/2013 13:45:45 04/19/2013 09:00:47 Adult health examination 945304051 pt presents for PDOT. pt is a 47 year old male in excellent health with no ongoing medical issues. 2 year certificat e completed. Counseling [id number] Pamela Jimenez NP , [facility], [address] [place] [address] 12/12/2014 08:24:26 12/12/2014 10:44:19 Tension-type headache 716416879 Reassured pt. May continue to take Tylenol or ibuprofen for headache. Can consider ice. Try different ways of relaxing, such as taking a walk or bike ride. Pt denies the need for meds or counseling for his anxiety at this time. Screening for disorder 438560045 check chol and bmp prior to physical. [id number] [facility], [address] [place] [address] 01/16/2015 10:11:15 01/16/2015 12:04:03 Adult health examination 231644591 Z00.00 49 year old man here for routine PHA. Now that he is 49 , will sched colonoscop y which her prefers to have done at [facility]. QM just about up to date. see Risk Assessment and Lifestyle Change Counseling section above Counseling 447103968 Z71 .9 Screening for malignant neoplasm of colon 784316158 Z12.11 Depressive disorder 3548 9007 F32.9 Self managed with exercise and mindfulnes s. Primary er ectile dysfunction 767049764 N52.9 Had diarrhea with Viagra. Wants to try Cialis. Screening for malignant neoplasm of prostate 365957646 Z12.5 Discussion with pt re: this controvers ial blood test. Pt wishes to proceed with the lab test. Administra tion of diphtheria, pertussis, and tetanus vaccine 469303083 Z23 Impacted cerumen 5562440 6 H61.21 Cleared by irrigation without problems Health Concerns Section Related Observation LastModified by Organization Detai ls LastModified Time None Recorded Concern Status LastModified by Organization Details LastModified Time None Recorded Advance Directives Directive None Recorded Payers Encounter Date Sequence Insurance Name Policy Number Policy Kenyon Covered Member ID Kenyon Member ID Guarantor Name 04/05/2012 1 [employer] (MEDICAID HMO) [id number] Rahul Valentino [id number] Rahul Valentino 04/16/2012 1 [employer] (MEDICAID HMO) [id number] Rahul Valentino [id number] Rahul Valentino 04/18/2013 1 [facility] (MEDICAID HMO) [id number] Rahul Valentino [id number] Rahul Valentino 12/12/2014 1 [facility]: [facility] (EPO) [id number] Rahul Valentino [id number] Rahul Valentino 12/12/2014 2 [place] [facility] Rahul Valentino [id number] Rahul Valentino 01/16/2015 1 [facility]: [employer] (EPO) [id number] Rahul Valentino [id number] Rahul Valentino 01/16/2015 2 [place] [facility] Rahul Valentino [id number] Rahul Valentino Notes Date Note Type Note Provider Name and Address Organization Details Recorded Time 04/16/2012 text/html Was here for recent PHA - noted to have impacted cerumen at that visit - using drops in his right ear only since then - here for irrigation - no pain, some decreased hearing. Otherwise no concerns. Val Farris NP [address] [place], [address], [facility] 04/16/2012 10:47:31 12/12/2014 text/html c/o headache. Back of head has a sensation/pressur e, when under a lot of stress comes over top of head. Occur 3x per month. Lasts the whole day. Takes ibuprofen or Tylenol which helps. Used to only get about once per year. No vision changes or weakness. Just feels a little dizzy and light bothers him. Pamela Jimenez, JOSH [address] [place], [address], [facility] 12/12/2014 14:14:51
--- OUTSIDE RECORDS SUMMARY | 2024-06-24 16:41 | XMS_ITS | Clinical Summary ---
Author Organization [facility] Address [address] [place] [address] Care Team Providers Care Nurse First Aid Name Role Phone Unavailable Primary Care Provider Unavailabl e Immunizations Name Administration Dates Next Due COVID-19, mRNA (Pfizer Pre F all 2022) Monovalent, 30 mcg/0.3 ml 07/22/2020,06/30/2020 Tdap 01/16/2015 influenza,seasonal,trivalent ,PF (Fluzone, Fluarix, Flulaval) 04/05/2012 Social History Tobacco Use Types Packs/Day Years Used Date Smoking Tobacco: Never Assessed Intimate Partner Violence Answer Date R ecorded Fear of Current or Ex-Partner Not on file Emotionally Abused Not on file 11/27/2022 Physically Abused Not on file 11/27/2022 Sexually Abused Not on file 11/27/2022 Feel Safe at Home Not on file 11/27/2022 Sex and Gender Information Value Date Recorded Sex Assigned at Not on file Legal Sex Male 11:36 AM EDT Gender Identity Not on file Sexual Orientation Not on file Last Filed Vital Signs Vital Sign Reading Time Taken Comments Blood Pressure 136/86 09/02/2022 12:57 PM EDT Pulse 84 09/02/2022 12:57 PM EDT Temperature - - Respiratory Rate - - Oxygen Saturation - - Inhaled Oxygen Concentration - - Weight 90.7 kg (200 lb) 09/02/2022 12:57 PM EDT Height 175.3 cm (5' 9 ) 09/02/2022 12:57 PM EDT Body Mass Index 29.53 09/02/2022 12:57 PM EDT Plan of Treatment Health Maintenance Due Date Last Done Comments Hepatitis C Screening 1965 Colon Cancer Screening 2009 Pneumococcal 50+ years (1 of 1 - PCV) 2014 Zoster (Shingrix) (1 of 2) 2014 COVID-19 Vaccine (3 - 2023-2 5 season) 2023 07/22/2020, 06/30/2020 Influenza (#1) 2023 04/05/2012 DTaP/Tdap/Td (2 - Td or Tdap) 01/16/2025 01/16/2015 RSV (1 - 1-dose 75+ series) 2039 HPV Vaccine Aged Out No longer eligi ble based on patient's age to complete this topic Hep A Aged Out No longer eligi ble based on patient's age to complete this topic Hep B Aged Out No longer eligi ble based on patient's age to complete this topic Hib Aged Out No longer eligi ble based on patient's age to complete this topic Meningococcal ACWY Aged Out No longer eligible based on patient's age to complete this topic Zoster (Zostavax) Discontinued
== END 2024-06-24 15:40 | disposition home or self-care (01) ==
LOC: HO.HMCFM 14:24
PROVIDERS: PCP Nurse Practitioner Family; Visit Provider Nurse Practitioner Family
DX: E11.69 Type 2 diabetes mellitus with other specified complication (principal); E78.5 Hyperlipidemia, unspecified; E11.8 Type 2 diabetes mellitus with unspecified complications; E11.59 Type 2 diabetes mellitus with other circulatory complications; I15.2 Hypertension secondary to endocrine disorders; E53.8 Deficiency of other specified B group vitamins; L72.9 Follicular cyst of the skin and subcutaneous tissue, unspecified; E66.9 Obesity, unspecified; H61.23 Impacted cerumen, bilateral; Z13.9 Encounter for screening, unspecified

== ENCOUNTER 2024-06-24 15:23 | Outpatient (REF) | payer SELFPAY ==
[2024-06-24 18:16] LABS: Microalbum/Creatinine Ratio Ur 9.4 ug/mg cr (<30)
[2024-06-24 18:16] LABS: Alanine Aminotransferase 41 U/L (0-40); Albumin Level 4.5 g/dL (3.5-5.0); Alkaline Phosphatase 92 U/L (39-117); Anion Gap 10 (12-20); Aspartate Amino Transferase 35 U/L (5-37); Bilirubin Total 0.4 mg/dL (0.0-1.0); Blood Urea Nitrogen 8 mg/dL (9-16); Calcium 9.4 mg/dL (8.4-10.2); Carbon Dioxide 25 mmol/L (22-29); Chloride 107 mmol/L (96-108); Cholesterol 123 mg/dL (<200); Estimated Glomerular Filt Rate > 60; Glucose Random 150 mg/dL (60-115); HDL Cholesterol 31 mg/dL (>40); LDL Cholesterol Calculated 68 mg/dL (<100); Potassium 3.2 mmol/L (3.3-5.1); Sodium 139 mmol/L (135-145); Total Protein 8.2 g/dL (6.5-8.0); Triglycerides 122 mg/dL (<150)
[2024-06-24 18:48] LABS: Vitamin B12 1101 pg/mL (200-900)
== END 2024-06-24 15:24 | disposition home or self-care (01) ==
LOC: HO.WFDLDS 15:23
PROVIDERS: Visit Provider Nurse Practitioner Family
DX: E53.8 Deficiency of other specified B group vitamins (principal); E11.8 Type 2 diabetes mellitus with unspecified complications; E11.69 Type 2 diabetes mellitus with other specified complication; E78.5 Hyperlipidemia, unspecified; E11.59 Type 2 diabetes mellitus with other circulatory complications; I15.2 Hypertension secondary to endocrine disorders
CPT/HCPCS: 36415; 80053; 80061; 82043; 82570; 82607; 82746

== ENCOUNTER 2024-09-30 13:49 | Outpatient (AMB) | payer OTHER, SELFPAY ==
--- OUTSIDE RECORDS SUMMARY | 2024-09-30 14:15 | XMS_ITS | Clinical Summary ---
Author Organization [facility] Address [address] [place] [address] Care Team Providers Care Flex O Writer Operator Name Role Phone Unavailable Primary Care Provider Unavailabl e Immunizations Immunization Administration Dates Next Due COVID-19, mRNA (Pfizer [...] 2023-2 5 season) 2023 07/22/2020, 06/30/2020 Influenza (Season Ended) 2024 04/05/2012 DTaP/Tdap/Td (2 - Td or Tdap) [...]
--- NOTE | 2024-09-30 15:29 | A.OFFVIS_ITS ---
Intake Visit Reasons: follow up Intake Note: Patient presents to office for follow up Urology Medication: None Antibiotic Allergies: Penicillin Blood Thinners: None Ingredient Mixer Required: No Accompanied by: Self / Same As Patient Allergies Penicillins (PENICILLINS) Allergy (Unknown, Verified 09/30/24 15:31) ITCHING HPI Comments Details: 09/30/24-- History of Present Illness - The patient is a 59-year-old male presenting for followup - Initially evaluated on 03/10/24 for scrotal itching and scrotal cyst, treated with Lotrisone cream, with no obstructive urinary symptoms reported. - Testicular ultrasound on 05/06/24 showed no intratesticular masses and normal epididymis. - Currently, the patient denies scrotal pain or lower urinary tract symptoms. Results - Testicular ultrasound on 05/06/24: Negative for intratesticular masses, normal epididymis bilaterally. - PSA test on 03/19/24: 3.02 ng/mL. Discussion Notes I discussed with the patient the lab results, including the PSA level of 3.02. I explained that the elevation could be due to benign prostatic hyperplasia or prostate cancer. We agreed to recheck the PSA in March 2025 and review the results via telehealth follow-up. 03/10/24--Rahul is a 59 year old male who presents with complaints of scrotal cyst. He complains of itching on the scrotum, denies pain, denies irritative v oiding symptoms. CoMorbidity - Diabetes. Will prescribe lotrisone cream to scrotum prn pruitius, PSA screening [facility] Medical History Hyperlipidemia Chronic neck pain Diabetes mellitus Essential hypertension Surgical History H/O colonoscopy (~06/2024) History of hernia surgery Family History Mother Asthma High blood pressure Father Cancer Prostate cancer High blood pressure Social History Housing: House Alcohol intake: current Alcohol intake frequency: holidays/special occasions only Patient Tobacco Use Status: Never used Tobacco e-Cigarette/Vaping Use: Never Used Second Hand Smoke Exposure: No service: No Current occupational status: employed 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 Cognitive needs: No Hearing needs: No Vision needs: Yes (Glasses) Review of Systems Const All systems reviewed & are unremarkable except as noted in HPI and below Reports no additional complaints Eyes Reports no additional complaints ENT Reports no additional complaints Card Reports no additional complaints Resp Reports no additional complaints GI Reports no additional complaints Reports as per HPI Musc Reports no additional complaints Skin/Breast Reports system reviewed and no additional complaints, except as documented Neuro Reports no additional complaints Psych Reports no additional complaints Endo Reports no additional complaints Jair/Lymph Reports no additional complaints Aller/Immun Reports no additional complaints Results AMB Urinalysis, Automated UA Leukoctes 0 Adam/uL Last Edit by BRIAN Bergeron on 09/30/24 16:35 UA Nitrite Negative Last Edit by Verónica Novoa CCM on 09/30/24 16:35 UA Urobilinogen 3.5 mg/dL Last Edit by BRIAN Bergeron on 09/30/24 16:3 5 UA Protein 15 mg/dL Last Edit by Verónica Novoa [facility] on 09/30/24 16:35 UA pH 5.5 Last Edit by Verónica Novoa [facility] on 09/30/24 16:35 UA Blood 0 Bubba/uL Last Edit by Verónica Novoa [facility] on 09/30/24 16:35 UA Specific [place] 1.015 Last Edit by Verónica Novoa CCM on 09/30/24 16: 35 UA Ketone Positive Last Edit by Verónica Novoa CCM on 09/30/24 16:35 UA Bilirubin 0 mg/dL Last Edit by Verónica Novoa [facility] on 09/30/24 16:35 UA Glucose 0 mg/dL Last Edit by Verónica Novoa [facility] on 09/30/24 16:35 Results Reviewed Results Reviewed: Laboratory Last Values Urine pH (Auto) 5.5 09/30/24 16:34 Specific [place] (Auto) 1.015 09/30/24 16:34 Urine Protein (Auto) 15 mg/dL 09/30/24 16:34 Glucose (UA)(Auto) 0 mg/dL 09/30/24 16:34 Urine Ketones (Auto) Positive 09/30/24 16:34 Urine Blood (Auto) 0 Bubba/uL 09/30/24 16:34 Urine Nitrite (Auto) Negative 09/30/24 16:34 Urine Bilirubin (Auto) 0 mg/dL 09/30/24 16:34 Urine Urobilinogen (Auto) 3.5 mg/dL 09/30/24 16:34 Leukocyte Esterase (Auto) 0 Adam/uL 09/30/24 16:34 Date of Service: 05/06/24 CLINICAL HISTORY: N50.3 - Cyst of epididymis US Scrotum with Doppler Comparison: None Findings: Right testicle normal size and echotexture, 5.0 x 2.2 x 3.1 cm. Left testicle normal size and echotexture, 4.8 x 1.9 x 2.9 cm. Color Doppler and arterial/venous spectral tracings of both testicles within normal limits. Normal epididymides. Small bilateral hydroceles . No varicoceles. IMPRESSION: Small bilateral hydroceles. No evidence of torsion. Assessment & Plan Assessment & Plan (1) Screening PSA (prostate specific antigen): Code(s): Z12.5 - Encounter for screening for malignant neoplasm of prostate Category: Medical (2) Epididymal cyst: Code(s): N50.3 - Cyst of epididymis Category: Medical Plan Plan - Schedule PSA recheck in March 2025, with telehealth follow-up to review results. - Monitor PSA levels due to potential causes such as BPH and prostate cancer. Orders: Orders AMB Urinalysis Automated Today Z13.9 - Encounter for screening, unspecified PSA,Total (Free>4and<10) 5 Months Z12.5 - Encounter for screening for malignant neoplasm of prostate Patient Instructions: The patient had an opportunity to ask questions regarding treatment plan. The patient expressed understanding and agreement with the above treatment plan. The patient is aware they should contact our office by phone for worsening of their current condition or the appearance of new symptoms. Compliance is encouraged with any medications and followup testing that is ordered. It is a privilege to be allowed the opportunity to participate in the urologic care of your patient. If you have any questions or concerns regarding treatment for the above conditions please do not hesitate to contact me. The office telephone contact is [phone]. This note is constructed in part using voice recognition software. While every effort has been made to ensure accuracy life skills specialist errors may have been included. Yours sincerely, Eliezer Woodruff MD Scribe Plan - Not visible on output: Patient was informed and verbally consented to the use of an ambient scribe for clinic note documentation during this visit. Coding Level of Care Code Est Pt Level 3 (79222) Diagnoses Screening PSA (prostate specific antigen) Z12.5 Epididymal cyst N50.3
== END 2024-09-30 16:00 | disposition home or self-care (01) ==
LOC: HO.HUSH 13:49
PROVIDERS: PCP Nurse Practitioner Family; Visit Provider Urology
DX: Z12.5 Encounter for screening for malignant neoplasm of prostate (principal); N50.3 Cyst of epididymis; Z13.9 Encounter for screening, unspecified
CPT/HCPCS: 99213

== ENCOUNTER → 2024-09-30 13:49 | Outpatient (BNVA) | payer OTHER, SELFPAY | PROVIDERS: PCP Nurse Practitioner Family; Visit Provider Urology | DX: N50.3 Cyst of epididymis (principal); Z12.5 Encounter for screening for malignant neoplasm of prostate | CPT/HCPCS: 81003; 99212 ==

== ENCOUNTER 2024-10-28 13:45 | Outpatient (AMB) | payer SELFPAY ==
--- NOTE | 2024-10-28 13:47 | A.OFFPC_ITS ---
Vital Signs 3 10/28/24 13:54 Height 5 ft 9 in Weight 204 lb BMI 30.1 BP 142/78 H Blood Pressure Location Lt brachial Position Sitting Respiration 13 Pulse 96 Pulse Source Pulse Oximeter Temp 97.2 F Temp Source Oral Pulse Oximetry (%) 97 Oxygen Delivery Method Room Air Intake Visit Reasons: 4 months 30 min routine DM fu Intake Note: 4 Month routine follow up. Patient c/o px on right thigh after getting bitten and has been bleeding from it for 2 weeks but is not sure what bite him Communications Representative Required: No Allergies Penicillins (PENICILLINS) Allergy (Unknown, Verified 10/28/24 13:47) ITCHING Medication List - Last Reconciled 10/28/24 by Suzie Harris, STIVEN-BC atorvastatin 40 mg PO BEDTIME blood sugar diagnostic As directed blood-glucose meter As directed blood-glucose sensor (FreeStyle Pedro 3 Sensor device) As directed blood-glucose,flexo folder gluer operator,cont (FreeStyle Pedro 3 [place]) As directed clotrimazole-betamethasone 1-0.05 % 1 appl topical BID 2 weeks empagliflozin (Jardiance) 25 mg PO DAILY fosinopril-hydrochlorothiazide 20-12.5 mg 1 tab PO DAILY PRN mecobalamin (vitamin B12) 1,000 mcg PO DAILY 90 days metformin ER 1,000 mg (2 x 500 mg) PO QPM Tobacco use date assessed: 10/28/24 Dental Screening Dental Screen Date: 10/28/24 Did you have a dental visit in the last 12 months?: Yes Did you have a dental problem in the last 6 months where you did not have access to dental care?: No Was dental information given to patient?: Patient has dentist HPI HPI Comments 2 History of Present Illness0 Details 59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 Colonoscopy: 06/24/24 [facility] + polyp, diverticulosis, hemorrhoids repeat 5-10 years patho pending Specialists: Pain Mgmt Urology GI Here today for chronic dz mgmt HTN: Taking fosinopril/hctz 20mg/12.5mg 1 PRN SBP > 140. Home log reviewed, looks great actually with very sparing use of PRN medication. + effects from the PRN use w/o side effects. B12 def: cont to take supplement, due for labs DM Hga1c today 7.8% TODAY Insurance change has led to lapse of CGM Using fingerstick Lost insurance; taking his grandma's metformin 1000 mg BID Jardiance was not covered; stopped taking. HLD: LDL at goal on statin on previous labs, tolerating w/o side effects. Due for repeat Has a painful lump posterior R buttocks present for a few days; worse since onset; bit by bug, unsure type. Has had lots of blood drainage. Denies fever, chills. Exam: Awake alert oriented very pleasant Sclera is nonicteric Mucous membranes moist Regular rate and rhythm Lung sounds clear auscultation No hepatic tenderness with palp, abd soft. Bilateral lower extremities without edema, skin intact, pedal pulses within normal limits bilat, normal monofilament and vibratory sensations bilat Posterior R thigh: See picture; area is TTP, indurated; upon light palpation large amounts of purulent bloody drainage was expressed. There is no streaking. A&P: 1. Type 2 Diabetes Mellitus: Cont metfor min 1000mg BID Send Jardiance 25mg QD again to see if insurance will cover once he gets this back. 2. Vitamin B12 Deficiency: Maintain [facility] ent vitamin B12 supplementation regimen. 3. Essential Hypertension: Continue [facility] ent management and monitor 4. Hyperlipidemia: Continue atorvastatin therapy and monitor with blood tests. 5. Abcess: tx w/ dual AB; refer to [facility] for I&D. Check labs today. RTO 4 mo routine chronic dz mgmt, labs 1 week before Total time spent caring for the patient today was 30 minutes. This includes time spent before the visit reviewing the chart, time spent during the visit, and time spent after the visit on documentation, reviewing laboratory results, diagnostic imaging, medications, performing a medically necessary evaluation, counseling on diagnoses, care coordination, ordering appropriate tests, ordering appropriate medications, review of tests performed by other providers, reporting test results with the patient, communication with other healthcare providers. 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 Cognitive needs: No Hearing needs: No Vision needs: Yes (Glasses) Questionnaire Thrive Questionnaire Date Thrive assessed: 06/24/24 I am a: Patient What is your living situation today?: I have a steady place to live Within the past 12 months, did the food you bought not last and you didn't have the money to get more?: I choose not to answer this question Within the past 12 months, did you worry whether your food would run out before you got money to buy more?: I choose not to answer this question Do you have trouble paying for medicines?: I choose not to answer this question Do you have trouble getting transportation to medical appointments?: I choose not to answer this question Do you have trouble paying your heating and electricity bill?: I choose not to answer this question Do you have trouble taking care of your child, family member or friend?: I choose not to answer this question Do you have trouble with day-to-day activities such as bathing, preparing meals, shopping, managing finances, etc.?: No Are you currently unemployed and looking for a job?: I choose not to answer this question Are you interested in more education?: I choose not to answer this question Please select the resources that you would like help with: None Currently or been in a relationship where the following occur: I choose not to answer THRIVE Score: 0 CHRISTOPHER-7 AMB Questionnaire CHRISTOPHER-7 Date CHRISTOPHER - 7 assessed: 06/24/24 Source: Developed by Drs. Cas Lockett, Maggie Bradford, Felice Sr and colleagues, with an educational mansi from [employer]. Physical exam (Primary Care) Vital Signs: Last Vital Signs Temp 97.2 F 10/28/24 13:54 Pulse 96 10/28/24 13:54 Resp 13 10/28/24 13:54 BP 142/78 H 10/28/24 13:54 Pulse Ox 97 10/28/24 13:54 Oxygen Delivery Method Room Air 10/28/24 13:54 BMI result Body Mass Index 30.1 Tobacco/Smoking Status: Tobacco use Status Tobacco use date assessed 10/28/24 10/28/24 13:50 Patient Tobacco Use Status Never used Tobacco 10/28/24 13:50 e-Cigarette/Vaping Use Never Used 10/28/24 13:50 Thrive Assessment: Date of Thrive Assessment Date Thrive assessed 06/24/24 10/28/24 13:50 Currently or been in a relationship where the following occur: I choose not to answer Results AMB Hemoglobin A1c 2 AMB Hemoglobin A1c 7.8 % Last Edit by Neel Louis MA on 10/28/24 14:06 Results Reviewed Results Reviewed: Laboratory Last Values Hgb A1c (Clinic) 7.8 % (4.0-6.0) H 10/28/24 13:56 Coding Level of Care Code Est Pt Level 4 (13388) Complex EM visit Add On G2211 Diagnoses Diabetes mellitus type 2 with complications E11.8 Abscess and cellulitis of gluteal region L02.31; L03.317 Hypertension associated with type 2 diabetes mellitus E11.59; I15.2 Hyperlipidemia associated with type 2 diabetes mellitus E11.69; E78.5 B12 deficiency E53.8 Assessment & Plan Assessment & Plan (1) Diabetes mellitus type 2 with complications: Comment: Diabetic eye exam - done at [facility] in [place], [place]. May need to place a new referral. We will continue to follow Tdap 05/2023. Code(s): E11.8 - Type 2 diabetes mellitus with unspecified complications Category: Medical (2) Abscess and cellulitis of gluteal region: Code(s): L02.31 - Cutaneous abscess of buttock; L03.317 - Cellulitis of buttock Category: Medical (3) Hypertension associated with type 2 diabetes mellitus: Comment: Goal of less than 130/80. Code(s): E11.59 - Type 2 diabetes mellitus with other circulatory complications; I15.2 - Hypertension secondary to endocrine disorders Category: Medical (4) Hyperlipidemia associated with type 2 diabetes mellitus: Code(s): E11.69 - Type 2 diabetes mellitus with other specified complication; E78.5 - Hyperlipidemia, unspecified Category: Medical (5) B12 deficiency: Code(s): E53.8 - Deficiency of other specified B group vitamins Category: Medical Plan . Orders: Orders 2 AMB Hemoglobin A1c Today E11.8 - Type 2 diabetes mellitus with unspecified complications, Z13.9 - Encounter for screening, unspecified Referrals 2 General Surgery Referral L02.31 - Cutaneous abscess of buttock, L03.317 - Cellulitis of buttock Medications: New 2 azithromycin 500 mg PO DAILY 7 tabs 0RF 7 days metronidazole 500 mg PO BID 14 tabs 0RF Changed 2 From metformin ER 1,000 mg (2 x 500 mg) PO QPM 180 tabs 2RF To metformin ER 1,000 mg (2 x 500 mg) PO BID 360 tabs 2RF Refilled 2 empagliflozin (Jardiance) 25 mg PO DAILY 90 tabs 2RF fosinopril-hydrochlorothiazide 20-12.5 mg 1 tab PO DAILY PRN 30 tabs 3RF SBP > 140
--- OUTSIDE RECORDS SUMMARY | 2024-10-28 13:48 | XMS_ITS | Clinical Summary ---
Author Organization [facility] Address [address] [place] [address] Care Team Providers Care Advertising Agent Name Role Phone Unavailable Primary Care Provider [...] 5 season) 2023 07/22/2020, 06/30/2020 Influenza (#1) 2024 04/05/2012 DTaP/Tdap/Td (2 - Td or [...]
--- OUTSIDE RECORDS SUMMARY | 2024-10-28 13:49 | XMS_ITS | Data Portability ---
Author Organization [facility], , [facility] Address [address] [place] [address] Assessment No assessment recorded. Plan of Treatment Reminders Order Date Submit Date Provider Last Modified By Organization Details Last Modified Time Details Appointments None recorded. Lab PSA, serum or plasma 2014 015 [facility], [address] [place] [address], [id number], 5 10:13:44 lipid panel, serum 2014 015 [facility], [address] [place] [address], [address], 5 09:01:08 BMP, serum or plasma 2014 015 [facility], [address] [place] [address], [address], 5 09:01:07 urinalysis , dipstick 2013 014 [facility], [address] [place] [address], [address], 4 16:51:03 basic metabolic panel 2011 012 [facility], [address] [place] [address], [address], 3 03:51:41 lipid panel 2011 012 [facility], [address] [place] [address], [address], 3 03:51:41 Referral urologist referral - 49 year old with c/o erectile dysfunctio n. Wants consult. 2014 015 SOLOMON Not available 6 05:03:04 Procedures vision color blindness screen (PROC) 2013 014 [facility], [address] [place] [address], [address], 4 16:51:03 Surgeries colonoscop y (SURG) 2014 015 idania Reed MD, [address] [place], [address], 5 09:42:13 Imaging audiogram 2013 014 [facility], [address] [place] [address], [address], 4 16:51:03 Medication Orders Cialis 20 mg tablet 2014 015 INTERFACE [id number], [address] [place], [address], 5 18:39:11 Patient TargetsNo targets recorded. Patient Instructions Encounter Date Encounter Id Patient Instructions Last Modified By Organization Details Last Modified Time 04/05/2012 [id number] My Health To Do List [email or web address] Not available 04/05/2012 13:56:04 04/18/2013 [id number] Well Visit, Ages 18 to 65: Care Instructions margauxhas Not available 04/25/2013 11:59:01 vision screen* egraef Not available 0 04/24/2013 16:51:03 egraef Not available 2013 16:51:03 12/12/2014 [id number] After a discussi on of treatment options, which included consideration of best practices and patient preferences, the following treatment plan and objectives were adopted: Schedule a physical exam. liyah Not available 12/12/2014 14:14:43 01/16/2015 [id number] Well Visit 50 to 65: Care Instructions Not available 01/17/2015 09:31:30 After a discussi on of treatment options, which included consideration of best practices, patient preferences, and the patient s individual lifestyle and treatment goals, as well as consideration and attempted mitigation of any barriers to meeting the patient s goals, the following treatment plan and objectives were adopted: See above. [email or web address] Not available 01/16/2015 18:39:09 Reason for Referral Urologist Referral for Prima ry erectile dysfunction 49 year old with c/o erectile dysfunction. Wants consult. Referring Physician: Pamela Jimenez, Family Medicine, Encounter Date: 01/16/2015 Results Created Date Observation Date Name Description Value Unit Range Abnormal Flag Note LastModifiedBy Organization Detail LastModifiedTime 04/20/19 14 04/20/2013 urina lysis , dipst ick Glucose Negati ve Not Available [address], [address], 04/20/2013 10:47:19 04/20/19 14 04/20/2013 urina lysis , dipst ick Bilirubin Negati ve Not Available [address], [address], 04/20/2013 10:47:19 04/20/1904/20/2013 urina lysis , dipst ick Ketone Negati ve Not Available [address], [address], 04/20/2013 10:47:19 04/20/19 14 04/20/2013 urina lysis , dipst ick Specific Sprakers 1.025 Not Available [address], [address], 04/20/2013 10:47:19 04/20/1904/20/2013 urina lysis , dipst ick Blood Negati ve Not Available [address], [address], 04/20/2013 10:47:19 04/20/19 14 04/20/2013 urina lysis , dipst ick pH 7.0 Not Available [address], [address], 04/20/2013 10:47:19 04/20/19 14 04/20/2013 urina lysis , dipst ick Protein Negati ve Not Available [address], [address], 04/20/2013 10:47:19 04/20/19 14 04/20/2013 urina lysis , dipst ick Urobilinogen .2 Not Available [address], [address], 04/20/2013 10:47:19 04/20/19 14 04/20/2013 urina lysis , dipst ick Nitrite negati ve Not Available [address], [address], 04/20/2013 10:47:19 04/20/19 14 04/20/2013 urina lysis , dipst ick Leukocytes Negati ve Not Available [address], [address], 04/20/2013 10:47:19 04/18/19 14 04/18/2013 visio n scree n* Right Not Available [address], [address], 04/18/2013 15:08:06 04/18/19 14 04/18/2013 visio n scree n* Left Not Available [address], [address], 04/18/2013 15:08:06 04/18/19 14 04/18/2013 visio n scree n* Both Not Available [address], [address], 04/18/2013 15:08:06 04/18/19 14 04/18/2013 visio n scree n* Corrective Lenses no correc tive lenses Not Available [address], [address], 04/18/2013 15:08:06 04/18/19 14 04/18/2013 visio n color blind ness scree n (PROC ) Result normal normal Not Available [address], [address], 04/18/2013 15:08:06 04/18/19 14 04/18/2013 audio gram Result pt was ok for 25 dz for both ears Not Available [address], [address], 04/18/2013 15:08:06 04/05/20 12 04/07/2012 lipid panel cholesterol 183 mg/dL <200 mg/dL lissette able 200-2 39 mg/dL borde rline high >240 mg/dL high Not Available [address], [address], 04/07/2012 09:41:23 04/05/20 12 04/07/2012 lipid panel triglyceride s 198 mg/dL <150 mg/dL zahida l 150-1 99 mg/dL borde rline high 200-4 99 mg/dL high >500 mg/dL very high Not Available [address], [address], 04/07/2012 09:41:23 04/05/2004/07/2012 lipid panel direct HDL 31 mg/dL Not Available [address], [address], 04/07/2012 09:41:23 04/05/20 12 04/07/2012 lipid panel direct LDL 109 mg/dL risk categ ory LDL goal _ CHD or CHD risk equiv alent s <100 mg/dL (10-y ear risk >20%) 2+ risk facto rs <130 mg/dL (10-y ear risk <= 20%) 0-1 risk facto r <160 mg/dL almo st all peopl e with 0-1 risk facto r have a 10 year risk <10%, thus 10 year risk asses ment in peopl e with 0-1 risk facto r IS not neces sanjeev. Not Available [address], [address], 04/07/2012 09:41:23 04/05/2004/07/2012 basic metab olic panel glucose 97 mg/dL 70-100 Not Available [address], [address], 04/07/2012 09:41:24 04/05/2004/07/2012 basic metab olic panel BUN 9 mg/dL 7-18 Not Available [address], [address], 04/07/2012 09:41:24 04/05/2004/07/2012 basic metab olic panel creatinine 1.2 mg/dL 0.8-1. 3 Not Available [address], [address], 04/07/2012 09:41:24 04/05/2004/07/2012 basic metab olic panel B/C 7.5 ratio Not Available [address], [address], 04/07/2012 09:41:24 04/05/2004/07/2012 basic metab olic panel GFR 69.0 mL/mi n recom cara d GFR by the natio nal kidne y found ation >60 mL/mi n/1.7 3m2 - zahida l <60 mL/mi n/1.7 3m2 - chron ic kidne y disea se <15 mL/mi n/1.7 3m2 - kidne y failu re Not Available [address], [address], 04/07/2012 09:41:24 04/05/2004/07/2012 basic metab olic panel GFR - if 83.5 mL/mi n for afric an ameri can patie nts: resul ts multi plied by 1.21 Not Available [address], [address], 04/07/2012 09:41:24 04/05/20 12 04/07/2012 basic metab olic panel sodium 139 mmol/ L 136-14 5 Not Available [address], [address], 04/07/2012 09:41:24 04/05/20 12 04/07/2012 basic metab olic panel potassium 4.2 mmol/ L 3.5-5. 1 Not Available [address], [address], 04/07/2012 09:41:24 04/05/20 12 04/07/2012 basic metab olic panel chloride 102 mmol/ L 96-107 Not Available [address], [address], 04/07/2012 09:41:24 04/05/20 12 04/07/2012 basic metab olic panel _anion gap 9.0 Not Available [address], [address], 04/07/2012 09:41:24 04/05/20 12 04/07/2012 basic metab olic panel CO2 28 mmol/ L 21-32 Not Available [address], [address], 04/07/2012 09:41:24 04/05/2004/07/2012 basic metab olic panel calcium 9.3 mg/dL 8.5-10 .3 Not Available [address], [address], 04/07/2012 09:41:24 01/17/20 15 01/17/2015 BMP, serum or plasm a glucose 97 mg/dL 70-100 Not Available [address], [address], 01/17/2015 09:01:07 01/17/20 15 01/17/2015 BMP, serum or plasm a BUN 13 mg/dL 7-18 Not Available [address], [address], 01/17/2015 09:01:07 01/17/20 15 01/17/2015 BMP, serum or plasm a creatinine 0.9 mg/dL 0.8-1. 3 Not Available [address], [address], 01/17/2015 09:01:07 01/17/20 15 01/17/2015 BMP, serum or plasm a B/C 14.4 ratio Not Available [address], [address], 01/17/2015 09:01:07 01/17/20 15 01/17/2015 BMP, serum or plasm a GFR -non 94.9 mL/mi n Recom cara d GFR by the Natio nal Kidne y Found ation >60 mL/mi n/1.7 3m2 - Zahida l <60 mL/mi n/1.7 3m2 - Chron ic Kidne y Disea se <15 mL/mi n/1.7 3m2 - Kidne y Failu re Not Available [address], [address], 01/17/2015 09:01:07 01/17/20 15 01/17/2015 BMP, serum or plasm a GFR - if 114.9 mL/mi n For Afric an Ameri can patie nts: Resul ts Multi plied by 1.21 Not Available [address], [address], 01/17/2015 09:01:07 01/17/20 15 01/17/2015 BMP, serum or plasm a sodium 141 mmol/ L 136-14 5 Not Available [address], [address], 01/17/2015 09:01:07 01/17/20 15 01/17/2015 BMP, serum or plasm a potassium 4.8 mmol/ L 3.5-5. 1 Not Available [address], [address], 01/17/2015 09:01:07 01/17/2001/17/2015 BMP, serum or plasm a chloride 105 mmol/ L 96-107 Not Available [address], [address], 01/17/2015 09:01:07 01/17/20 15 01/17/2015 BMP, serum or plasm a anion gap 6.4 5.0-15 .0 Not Available [address], [address], 01/17/2015 09:01:07 01/17/2001/17/2015 BMP, serum or plasm a CO2 30 mmol/ L 21-32 Not Available [address], [address], 01/17/2015 09:01:07 01/17/2001/17/2015 BMP, serum or plasm a calcium 9.4 mg/dL 8.5-10 .3 Not Available [address], [address], 01/17/2015 09:01:07 01/17/20 15 01/17/2015 lipid panel , serum cholesterol 187 mg/dL <200 mg/dl Lissette able 200-2 39 mg/dl Borde rline High >240 mg/dl High Not Available [address], [address], 01/17/2015 09:01:08 01/17/2001/17/2015 lipid panel , serum triglyceride s 160 mg/dL <150 mg/dL Zahida l 150-1 99 mg/dL Borde rline High 200-4 99 mg/dL High >500 mg/dL Very High Not Available [address], [address], 01/17/2015 09:01:08 01/17/2001/17/2015 lipid panel , serum direct HDL 32 mg/dL Not Available [address], [address], 01/17/2015 09:01:08 01/17/2001/17/2015 LDL, calcu lated , serum (OBS) LDL - calculated 123.0 RISK CATEG ORY LDL GOAL _ CHD or CHD Risk Equiv alent s <100 mg/dl (10-y ear risk >20%) 2+ Risk Facto rs <130 mg/dl (10-y ear risk <= 20%) 0-1 Risk Facto r <160 mg/dl Almo st all peopl e with 0-1 risk facto r have a 10 year risk <10%, thus 10 year risk asses ment in peopl e with 0-1 risk facto r is not necnoel sanjeev. Not Available [address], [address], 01/17/2015 09:01:09 01/17/20 15 01/19/2015 PSA, serum or plasm a PSA 1.30 NG/mL 0.00-4 .00 Not Available [address], [address], 01/19/2015 10:13:44 Result Notes Documentation Provider Name and Address Organization Details Recorded Time Pathology Study : colon polyps - tubular adenomas Val Farris NP [address] [place] [address], [phone] [facility] [place] 12:37:52 Pathology Study : colon polyps - tubular adenomas - done at [facility] Val Farris NP [address] [place] [address], [phone], [facility] 04/02/2015 17:41:35 Problems Name Problem SNOMED Code Status Onset Date Resolution Date Notes Provider Name and Address Organization Details Recorded Time Mixed anxiety and depressive disorder 949874360 Active 2014 Occ. symptoms Pamela Jimenez NP [address] [place] [address], [phone], [facility] [place] 5 10:33:40 Problem Notes None recorded. Procedures Surgical History Date Name Laterality Status Provider Name and Address Organization Details Recorded Time 5 Cerumen Removal completed Haily Whitley LPN [facility] 01/16/2015 12:07:24 3 Cerumen Removal completed Agnes Bean LPN [facility] 04/16/2012 10:12:25 Hernia Repair completed Val Farris NP [address] [place] [address], [phone], [facility] 04/05/2012 14:09:18 Imaging Results None recorded. Procedure Notes None recorded. Medical Equipment None Reported. Allergies Allergen ID Allergen Name Allergen Category Reaction Reaction Severity Criticality Documentation Date Start Date Code Code System Note Provider Name and Address Organization Details Recorded Time 930334 Product containin g penicilli n (product) medicatio n Not available Not available Not available 03/03/2012 93161 8001 SNOMED Swell ing of face/ rash Pamela Jimenez NP [address] [place] [address], [phone], [facility] [place] 5 10:31:44 667177 Viagra medicatio n diarrhea Not available Not available 12/12/2014 07289 5 RxNorm Pamela Jimenez NP [address] [place] [address], [phone], [facility] [place] 10:31:44 Medications Name Sig Start Date [...] Body weight Body mass index (BMI) Systolic And Diastolic Provider Name and Address Organization Details Last Updated DateTime 04/16/2012 177.8 cm 51030.104 52 g 28.1 kg/m2 122/70 mm[Hg] Fabiana torrez [facility] 04/16/2012 09:52:05 Date Recorded Body weight Body height Body mass index (BMI) Systolic And Diastolic Provider Name and Address Organization Details Last Updated DateTime 04/18/2013 90452.104 52 g 177.8 cm 28.1 kg/m2 126/72 mm[Hg] [facility] 04/18/2013 14:44:58 Date Recorded Body weight Body height Body temperature Heart rate Body mass index (BMI) Systolic And Diastolic Provider Name and Address Organization Details Last Updated DateTime 5 54087.2 5111 g 177.8 cm 98 [degF] 88 /min 29.1 kg/m2 128/58 mm[Hg] [facility] 5 10:20:00 Date Recorded Body height Body mass index (BMI) Body weight Heart rate Systolic And Diastolic Provider Name and Address Organization Details Last Updated DateTime 01/16/2015 177.8 cm 27 kg/m2 72660.36 556 g 72 /min 118/62 mm[Hg] [facility] 01/16/2015 10:52:01 Date Recorded Body height Body weight Body mass index (BMI) Systolic And Diastolic Provider Name and Address Organization Details Last Updated DateTime 04/05/2012 177.8 cm 11779.512 15 g 28 kg/m2 110/60 mm[Hg] Nahomy Garcia [facility] 04/05/2012 13:56:04 Social History Question Answer Notes LastModified by Organizat ion Details LastModified Time Tobacco Smoking Status Never Smoker Leigh Acevedo MA [facility] 03/03/2012 11:32:32 What Is Your Level Of Caffeine Consumption? None Information not available 04/05/2012 How Much Tobacco Do You Chew? None Information not available 01/16/2015 What Type Of Diet Are You Following? REGULAR Information not available 04/05/2012 Which Illicit Or Recreational Drugs Have You Used? Denies Information not available 01/16/2015 Education 2 Year College Computer Information not available 01/16/2015 Live Alone Or With Others? With Others [email or web address] Information not available 04/05/2012 Patient Has Health Care Proxy Signed And In Chart No Forms Given [email or web address] Information not available 03/26/2018 Marital Status Informatio n not available 04/05/2012 Mosquito Repellent Used Routinely No Information not available 01/16/2015 How Many Children Do You Have? 4 3 Still At Home - 1 In [place] Information not available 04/05/2012 Seat Belts Used Routinely Yes Information not available 04/05/2012 Smoke Alarm In Home Yes Information not available 04/05/2012 Do You Use Sunscreen Routinely? Yes Information not available 01/16/2015 Sex: Unknown Functional Status Question Answer Note LastModified by Organizat ion Details LastModified Time What is your level of alcohol consumption? 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 Family History Relationship [...] Not available 2014 11:00:17 Paternal Uncle Malignant neoplasm of prostate [email or web address] Not available 2014 11:00:17 Medical History Condition Response Anxiety Y Depression Y Immunizations Vaccine Type Date Status Note Provider Nam e and Address Organization Details Recorded Time Influenza, split virus, trivalent, PF 04/05/2012 completed Not Available [facility] 2019 02:18:32 Tdap 01/16/2015 completed Not Available [facility] 04/23/2019 02:28:18 Past Encounters Encounter ID Performer Location Encounter Start Date Encounter Closed Date Diagnosis/Indication Diagnosis SNOMED-CT Code Diagnosis ICD10 Code Diagnosis Note [id number] STIVEN Garcia[facility] [address] [place] [address] 03/03/2012 11:01:29 03/03/2012 12:00:30 [id number] JOSH Gale, [facility] [address] [place] [address] 04/05/2012 13:38:29 04/05/2012 15:23:21 [id number] JOSH Gale, [facility] [address] [place] [address] 04/16/2012 09:04:04 04/19/2012 10:44:36 [id number] MD CHAS Downs, [facility] [address] [place] [address] 04/18/2013 13:45:45 04/19/2013 09:00:47 Adult health examination [id number] pt presents for PDOT. pt is a 47 year old male in excellent health with no ongoing medical issues. 2 year certificat e completed. Counseling [id number] JOSH Patel, [facility] [address] [place] [address] 12/12/2014 08:24:26 12/12/2014 10:44:19 Tension-type headache 975707469 Reassured pt. May continue to take Tylenol or ibuprofen for headache. Can consider ice. Try different ways of relaxing, such as taking a walk or bike ride. Pt denies the need for meds or counseling for his anxiety at this time. Screening for disorder 610019328 check chol and bmp prior to physical. [id number] JOSH Patel, [facility] [address] [place] [address] 01/16/2015 10:11:15 01/16/2015 12:04:03 Adult health examination 641965358 Z00.00 49 year old man here for routine PHA. Now that he is 49 , will sched colonoscop y which her prefers to have done at [facility]. QM just about up to date. see Risk Assessment and Lifestyle Change Counseling section above Counseling 396746332 Z71 .9 Screening for malignant neoplasm of colon 215729685 Z12.11 Depressive disorder 3548 9007 F32.9 Self managed with exercise and mindfulnes s. Primary er ectile dysfunction 414822214 N52.9 Had diarrhea with Viagra. Wants to try Cialis. Screening for malignant neoplasm of prostate 365424419 Z12.5 Discussion with pt re: this controvers ial blood test. Pt wishes to proceed with the lab test. Administra tion of diphtheria, pertussis, and tetanus vaccine 279906418 Z23 Puneet solano 5141664 6 H61.21 Cleared by irrigation without problems Health Concerns Section Related Observation LastModified by Organization Detai ls LastModified Time None Recorded Concern Status LastModified by Organization Details LastModified Time None Recorded Advance Directives Directive None Recorded Payers Insurance Date Sequence Insurance Name Policy Number Policy Kenyon Covered Member ID Kenyon Member ID Guarantor Name 12/12/2014 1 [facility] [employer] - HEALTH NET PLAN (MEDICAID HMO) [id number] Rahul Valentino [id number] Rahul Valentino 01/17/2016 2 [place] [facility] Rahul Valentino [id number] Rahul Valentino 01/17/2016 1 [place] [id number] Rahul Valentino [id number] Rahul Valentino Notes Date Note Type Note Provider Name and Address Organization Details Recorded Time 2 text/html Risk Assessment and Lifestyle Change Counseling-male 40-49Reported by PatientRisk AssessmentFor coronary artery disease risk assessment, patient reportsfamily history of coronary artery disease (dad in 60's),does not participate in regular exercise program, andlipids in undesirable range (told in past high triglycerides)but reportseats a diet low in fats and high in fiber,no personal history of hypertension,no personal history of diabetes,no history of peripheral vascular disease, aaa, or carotid disease, andno personal history of coronary artery disease(father). Forcolon cancer risk assessment:, patient reportsno family history of colon polyps or cancer. Forlung cancer risk assessment:, patient reportsnever smoked. Forcognitive/behavioral risk assessment:, patient reportsno history of depression.Diet CounselingFor diet, patient reportscounseled about appropriate portion size,counseled about eating a diet low in trans and saturated fats and high in fiber, fruits and vegetables,counseled about appropriate calcium intake and good dietary sources of calcium., anddiscussed the value of a mediterranean diet , and eating more fruits and vegetables.Physical Activity CounselingForexercise counseling:, patient reportsdiscussed the importance of daily physical activityanddiscussed the importance of weight bearing exercise.Family PlanningForbirth control:, (vasectomy). Physical Exam/MaleReported by PatientHPIFor pha, patient reportspatient is here for a wellness visit. he describes his health status as good. patient's health is the same as last year..Feels well - some URI/cough sx recently - fell last fall on right hip - seen at [facility] - had x-rays - still some pain/itching there on and off - large swollen area, bruising has resolved - also injured left foot in fall but that is better now Val Farris NP [address] [place], [address], [facility] [place] 16:32:19 3 text/html ROS as noted in the HPI Was here for recent PHA - noted to have impacted cerumen at that visit - using drops in his right ear only since then - here for irrigation - no pain, some decreased hearing. Otherwise no concerns. Val Farris NP [address] [place] [address], [address], [facility] [place] 04/16/2012 10:47:31 4 text/html Risk Assessment and Lifestyle Change Counseling-male 40-49Reported by Patient Physical Exam/MaleReported by Patient STIVEN Monson-[address], [address], [facility] [place] 04/24/2013 16:51:04 5 text/html c/o headache. Back of head has a sensation/pressure, when under a lot of stress comes over top of head. Occur 3x per month. Lasts the whole day. Takes ibuprofen or Tylenol which helps. Used to only get about once per year. No vision changes or weakness. Just feels a little dizzy and light bothers him. Pamela Jimenez NP [address] [place], [address], [facility] [place] 12/12/2014 14:14:51 5 text/html Risk Assessment and Lifestyle Change Counseling 50-64Reported by PatientRisk AssessmenFor colon cancer risk assessment, patient reportsfamily history of colon polyps or colon cancer (uncle). For cognitive/behavioral risk assessment, patient reportspersonal history of mental illnes (mild depression/anxiety)andfami ly history of mental illness (uncle). For coronary artery disease risk assessment, patient reportsno family history of coronary artery disease,no personal history of diabetes,no history of peripheral vascular disease, aaa, or carotid disease, andno personal history of coronary artery disease. For breast cancer risk assessment, patient reportsno family history of breast cancer. For lung cancer risk assessment, patient reportsnever smoked. For fracture risk assessment, patient reportsno unexplained fracture. For safety risk assessment, patient reportsno evidence of abuse/neglectanddo you feel safe in your current relationship?yes.Diet CounselingFor diet, patient reportscounseled about eating a diet low in trans and saturated fats and high in fiber, fruits and vegetables.Physical Activity CounselingForexercise counseling:, patient reportsdiscussed the importance of daily physical activity.Safety Counseling:For safety, patient reportscounseled about home safety including use of smoke detectors, co detectors, keeping home water temperature less than 120andcounseled about use of seat belts.FATHER, GRANDMOTHER, UNCLE HEART PROBLEMS But greater than 60 years old. cancer runs in the family Physical Exam/MaleReported by PatientHPIFor pha, patient reportspatient is here for a wellness visit. he describes his health status as good. patient's health is the same as last year.. Pamela Jimenez NP [address] [place] [address], [phone], [facility] [place] 01/16/2015 18:39:10
[2024-10-28 13:54] VITALS: BP 142/78; PULSE 96; RESP 13; TEMP 36.2; O2SAT 97; BMI 30.1
== END 2024-10-28 14:44 | disposition home or self-care (01) ==
LOC: HO.HMCFM 13:46
PROVIDERS: PCP Nurse Practitioner Family; Visit Provider Nurse Practitioner Family
DX: E11.8 Type 2 diabetes mellitus with unspecified complications (principal); E11.59 Type 2 diabetes mellitus with other circulatory complications; E11.69 Type 2 diabetes mellitus with other specified complication; L02.31 Cutaneous abscess of buttock; L03.317 Cellulitis of buttock; I15.2 Hypertension secondary to endocrine disorders; E78.5 Hyperlipidemia, unspecified; E53.8 Deficiency of other specified B group vitamins

== ENCOUNTER → 2024-10-28 13:45 | Outpatient (BNVA) | payer SELFPAY | PROVIDERS: PCP Nurse Practitioner Family; Visit Provider Nurse Practitioner Family | DX: I10 Essential (primary) hypertension (principal); M50.30 Other cervical disc degeneration, unspecified cervical region; E78.5 Hyperlipidemia, unspecified; L02.31 Cutaneous abscess of buttock; L03.317 Cellulitis of buttock; E11.59 Type 2 diabetes mellitus with other circulatory complications; E11.69 Type 2 diabetes mellitus with other specified complication; I15.2 Hypertension secondary to endocrine disorders; E53.8 Deficiency of other specified B group vitamins | CPT/HCPCS: 83036; 99212 ==

== ENCOUNTER 2025-03-10 15:26 | Outpatient (REF) | payer OTHER, SELFPAY ==
[2025-03-10 19:19] LABS: Alanine Aminotransferase 36 U/L (0-40); Albumin Level 5.0 g/dL (3.5-5.0); Alkaline Phosphatase 82 U/L (39-117); Anion Gap 14 (12-20); Aspartate Amino Transferase 33 U/L (5-37); Blood Urea Nitrogen 11 mg/dL (9-16); Calcium 9.6 mg/dL (8.4-10.2); Carbon Dioxide 25 mmol/L (22-29); Chloride 106 mmol/L (96-108); Cholesterol 128 mg/dL (<200); Estimated Glomerular Filt Rate > 60; HDL Cholesterol 33 mg/dL (>40); Potassium 3.8 mmol/L (3.3-5.1); Sodium 141 mmol/L (135-145); Total Protein 7.9 g/dL (6.5-8.0); Triglycerides 253 mg/dL (<150)
[2025-03-10 19:23] LABS: PSA,Total (Free>4and<10) 3.16 ng/mL (0.00-4.00)
[2025-03-11 00:06] LABS: Folate 12.4 ng/mL (> or = 4.0); Vitamin B12 936 pg/mL (200-900)
== END 2025-03-10 15:27 | disposition home or self-care (01) ==
LOC: HO.WFDLDS 15:26
PROVIDERS: Urology; PCP Nurse Practitioner Family; Visit Provider Nurse Practitioner Family
DX: Z12.5 Encounter for screening for malignant neoplasm of prostate (principal); Z28.21 Immunization not carried out because of patient refusal; E53.8 Deficiency of other specified B group vitamins; E11.8 Type 2 diabetes mellitus with unspecified complications; E11.59 Type 2 diabetes mellitus with other circulatory complications; E11.69 Type 2 diabetes mellitus with other specified complication; I15.2 Hypertension secondary to endocrine disorders; E78.5 Hyperlipidemia, unspecified; E66.9 Obesity, unspecified; Z68.30 Body mass index [BMI] 30.0-30.9, adult
CPT/HCPCS: 36415; 80053; 80061; 82043; 82570; 82607; 82746; 83036; 84153; 99212

== ENCOUNTER 2025-03-10 15:26 | Outpatient (AMB) | payer OTHER, SELFPAY ==
--- NOTE | 2025-03-10 15:28 | MHC.PC.OV ---
Vital Signs 03/10/25 15:30 Height 5 ft 9 in Weight 207 lb 2 oz BMI 30.6 BP 132/74 Blood Pressure Location Lt brachial Position Sitting Respiration 13 Pulse 80 Pulse Source Pulse Oximeter Temp 97.7 F Temp Source Oral Pulse Oximetry (%) 99 Oxygen Delivery Method Room Air Intake Visit Reasons: 4mos Intake Note: 4 months follow up. Glass Cylinder Flanger Required: No Allergies Penicillins (PENICILLINS) Allergy (Unknown, Verified 03/10/25 15:41) ITCHING Medication List - Last Reconciled 03/10/25 by Suzie Harris, EXPRESS CLERK- atorvastatin 40 mg PO BEDTIME blood sugar diagnostic As directed blood-glucose meter As directed blood-glucose sensor ([employer] Pedro 3 Sensor device) As directed blood-glucose,tax lawyer,cont (FreeStyle Pedro 3 [place]) As directed clotrimazole-betamethasone 1-0.05 % 1 appl topical BID 2 weeks empagliflozin (Jardiance) 25 mg PO DAILY fosinopril-hydrochlorothiazide 20-12.5 mg 1 tab PO DAILY PRN mecobalamin (vitamin B12) 1,000 mcg PO DAILY 90 days metformin ER 1,000 mg (2 x 500 mg) PO BID Tobacco use date assessed: 03/10/25 Dental Screening Dental Screen Date: 03/10/25 Did you have a dental visit in the last 12 months?: Yes Did you have a dental problem in the last 6 months where you did not have access to dental care?: No Was dental information given to patient?: Patient has dentist HPI HPI Comments History of Present Illness Details 59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 Colonoscopy: 06/24/24 [facility] + polyp, diverticulosis, hemorrhoids repeat 5-10 years patho pending Specialists: Pain Mgmt Urology GI History of Present Illness The patient is a 59-year-old male presenting for a routine complex disease management visit. Type 2 Diabetes Mellitus: - The patient has type 2 diabetes managed with metformin and Jardiance. - His A1c today is 7.2%, which is an improvement from 7.8% on October 28. - He reports taking Jardiance once in the morning and metformin 1000 mg once at night. - This is different from the prescribed dose of metformin 1000 mg twice a day, which the pharmacy has been filling as once a day due to insurance issues. - He previously used a continuous glucose monitor (CGM), but insurance stopped covering it, and he now performs finger sticks. - He takes [id number]-[id number]-nhffyns B12 (mecobalamin) for b12 def. Hypertension: - The patient has hypertension and uses a combination of Fosinopril and hydrochlorothiazide as needed. - He reports that his blood pressure can fluctuate, sometimes reaching 140 mmHg in the morning and then dropping to 120 mmHg in the afternoon, or vice versa. - He takes the medication when his blood pressure goes over 145 mmHg, which successfully lowers it to around 120 mmHg. Hyperlipidemia: - The patient has a history of hyperlipidemia and takes atorvastatin. Obesity: - The patient has obesity with a BMI of 30.6. Past Medical History - Type 2 diabetes mellitus - Hypertension - Hyperlipidemia - Obesity with BMI of 30.6 - History of a skin infection that resolved with antibiotics without requiring surgery. Review of Systems - General: Reports feeling well. - Respiratory: Reports good breathing. - Constitutional: Reports occasionally getting a cold with changes in temperature. - Gastrointestinal: Denies abdominal pain. - Integumentary: Denies any open areas on his feet. Physical Exam General: Well developed, well nourished, in no acute distress. Appears stated age. Head: Normocephalic, atraumatic. Eyes: Pupils are equal, round and reactive to light and accommodation. Conjunctivae are clear. Vision grossly normal. Lungs: Clear to auscultation bilaterally. No rales, rhonchi or wheeze noted. Good air flow in all hernández. Heart: Regular rate and rhythm. No murmurs, click, rubs or gallops are noted. Abdomen: Bowel sounds present in all quadrants. The abdomen is soft, nontender, with no masses or organomegaly noted. No hernias are noted. Musculoskeletal: Joints are nontender, without swelling, redness, or effusions. Pulses: Peripheral pulses are equal and palpable bilaterally. Extremities: No clubbing, cyanosis nor edema is noted. Psych: Mood and affect appropriate. Results - Labs: HgbA1c today is 7.2%, which has improved from 7.8% on October 28. - Lab from today pending Medical Decision Making The patient is a 59-year-old male with a history of type 2 diabetes, hypertension, hyperlipidemia, and obesity, here for a chronic disease management visit. His A1c is 7.2%, an improvement from 7.8% in October but still above the goal of <7%. This improvement is likely related to the use of Jardiance, but his glycemic control is limited by taking metformin 1000 mg only once daily due to pharmacy/insurance issues, despite it being prescribed twice daily. To achieve better glycemic control, the plan is to increase his metformin back to the originally intended dose of 1000 mg twice daily. A new prescription will be sent, and a note has been made to address any insurance denials directly. His hypertension appears adequately managed with Fosinopril/HCTZ on an as-needed basis, which he uses appropriately for elevated readings. He continues atorvastatin for hyperlipidemia, and lab work was ordered today to reassess his lipid panel and other metabolic markers. The patient declined the influenza vaccine. No other medication changes will be made until the new blood work results are reviewed. Plan 1. Type 2 Diabetes Mellitus - The patient's A1c is 7.2%, which is sub-optimally controlled. - Plan to increase metformin from 1000 mg once daily to 1000 mg twice daily to improve glycemic control with a goal A1c below 7%. - A new prescription will be sent to the pharmacy with a request to be contacted if there are any insurance issues. - Continue Jardiance 10 mg once daily. - The patient will continue monitoring blood glucose with finger sticks. 2. Hypertension - The patient reports blood pressure fluctuations, which he manages effectively with as-needed Fosinopril and hydrochlorothiazide when readings exceed 145 mmHg. - Continue with the current as-needed medication regimen. 3. Hyperlipidemia - Continue atorvastatin. - Blood work, including a lipid panel, was ordered today to monitor status. 4. Preventative Care - The patient declined the influenza vaccination. Patient Instructions - We are increasing your metformin dose back to twice a day. You will now take one 1000 mg tablet in the morning and one in the evening. - Please let our office know if you have any problems picking up the new metformin prescription from the pharmacy. - Continue taking your Jardiance and atorvastatin as you have been. - Continue to take your blood pressure medicine (Fosinopril and hydrochlorothiazide) only as needed, for example, if your blood pressure reading is over 145. - Please have your blood drawn at the lab today before you leave. - Please schedule your next appointment at the dental front office assistant before you go, 4 mo CPE labs 1 week before, sooner PRN Consent Patient was informed and verbally consented to the use of an ambient scribe for clinic note documentation during this visit. Total time spent caring for the patient today was 30 minutes. This includes time spent before the visit reviewing the chart, time spent during the visit, and time spent after the visit on documentation, reviewing laboratory results, diagnostic imaging, medications, performing a medically necessary evaluation, counseling on diagnoses, care coordination, ordering appropriate tests, ordering appropriate medications, review of tests performed by other providers, reporting test results with the patient, communication with other healthcare providers. 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 Cognitive needs: No Hearing needs: No Vision needs: Yes (Glasses) Questionnaire Thrive Questionnaire Date Thrive assessed: 06/24/24 I am a: Patient What is your living situation today?: I have a steady place to live Within the past 12 months, did the food you bought not last and you didn't have the money to get more?: I choose not to answer this question Within the past 12 months, did you worry whether your food would run out before you got money to buy more?: I choose not to answer this question Do you have trouble paying for medicines?: I choose not to answer this question Do you have trouble getting transportation to medical appointments?: I choose not to answer this question Do you have trouble paying your heating and electricity bill?: I choose not to answer this question Do you have trouble taking care of your child, family member or friend?: I choose not to answer this question Do you have trouble with day-to-day activities such as bathing, preparing meals, shopping, managing finances, etc.?: No Are you currently unemployed and looking for a job?: I choose not to answer this question Are you interested in more education?: I choose not to answer this question Please select the resources that you would like help with: None Currently or been in a relationship where the following occur: I choose not to answer THRIVE Score: 0 CHRISTOPHER-7 AMB Questionnaire CHRISTOPHER-7 Date CHRISTOPHER - 7 assessed: 06/24/24 Source: Developed by Drs. Cas Lockett, Maggie Bradford, Felice Sr and colleagues, with an educational mansi from [employer]. Physical exam (Primary Care) Vital Signs: Last Vital Signs Temp 97.7 F 03/10/25 15:30 Pulse 80 03/10/25 15:30 Resp 13 03/10/25 15:30 BP 132/74 03/10/25 15:30 Pulse Ox 99 03/10/25 15:30 Oxygen Delivery Method Room Air 03/10/25 15:30 BMI result Body Mass Index 30.6 Tobacco/Smoking Status: Tobacco use Status Tobacco use date assessed 03/10/25 03/10/25 15:34 Patient Tobacco Use Status Never used Tobacco 03/10/25 15:34 e-Cigarette/Vaping Use Never Used 03/10/25 15:34 Thrive Assessment: Date of Thrive Assessment Date Thrive assessed 06/24/24 03/10/25 15:34 Currently or been in a relationship where the following occur: I choose not to answer Results AMB Hemoglobin A1c AMB Hemoglobin A1c 7.2 % Last Edit by Neel Louis MA on 03/10/25 15:42 Results Reviewed Results Reviewed: Laboratory Last Values Hgb A1c (Clinic) 7.2 % (4.0-6.0) H 03/10/25 15:34 Coding Level of Care Code Est Pt Level 4 (09646) Complex visit Add On G2211 Diagnoses Hypertension associated with type 2 diabetes mellitus E11.59; I15.2 Hyperlipidemia associated with type 2 diabetes mellitus E11.69; E78.5 Diabetes mellitus type 2 with complications E11.8 Obesity (BMI 30-39.9) E66.9 B12 deficiency E53.8 Influenza vaccination declined Z28.21 Assessment & Plan Assessment & Plan (1) Hypertension associated with type 2 diabetes mellitus: Comment: Goal of less than 130/80. Code(s): E11.59 - Type 2 diabetes mellitus with other circulatory complications; I15.2 - Hypertension secondary to endocrine disorders Category: Medical (2) Hyperlipidemia associated with type 2 diabetes mellitus: Code(s): E11.69 - Type 2 diabetes mellitus with other specified complication; E78.5 - Hyperlipidemia, unspecified Category: Medical (3) Diabetes mellitus type 2 with complications: Comment: Diabetic eye exam - done at [facility] in [place], [place]. May need to place a new referral. We will continue to follow Tdap 05/2023. Code(s): E11.8 - Type 2 diabetes mellitus with unspecified complications Category: Medical (4) Obesity (BMI 30-39.9): Comment: assoc w/ DM and HLD Code(s): E66.9 - Obesity, unspecified Category: Medical (5) B12 deficiency: Code(s): E53.8 - Deficiency of other specified B group vitamins Category: Medical (6) Influenza vaccination declined: Onset Date: ~03/10/25 Code(s): Z28.21 - Immunization not carried out because of patient refusal Category: Medical Plan . Orders: Orders AMB Hemoglobin A1c Today Z13.9 - Encounter for screening, unspecified Lipid Panel Today E11.69 - Type 2 diabetes mellitus with other specified complication, E78.5 - Hyperlipidemia, unspecified Microalbumin, Random (w Creat) Today E11.59 - Type 2 diabetes mellitus with other circulatory complications, I15.2 - Hypertension secondary to endocrine disorders Comprehensive Met. Panel 4 Months Z00.00 - Encounter for general adult medical examination without abnormal findings Lipid Panel 4 Months Z00.00 - Encounter for general adult medical examination without abnormal findings Hemoglobin A1c 4 Months Z00.00 - Encounter for general adult medical examination without abnormal findings Microalbumin, Random (w Creat) 4 Months Z00.00 - Encounter for general adult medical examination without abnormal findings Complete Blood Count no Diff 4 Months Z00.00 - Encounter for general adult medical examination without abnormal findings TSH reflex Free T4 4 Months Z00.00 - Encounter for general adult medical examination without abnormal findings Vitamin B12 and Folate 4 Months Z00.00 - Encounter for general adult medical examination without abnormal findings Vitamin D 25-OH Total 4 Months Z00.00 - Encounter for general adult medical examination without abnormal findings Medications: Changed From metformin ER 1,000 mg (2 x 500 mg) PO BID 360 tabs 2RF To metformin ER 1,000 mg (2 x 500 mg) PO BID 360 tabs 2RF 90 days Discontinued blood-glucose,tax lawyer,cont (FreeStyle Pedro 3 [place]) Discontinued Reason: Insurance Denied As directed 1 ea 0RF E11.8 - Type 2 diabetes mellitus with unspecified complications azithromycin Discontinued Reason: Patient Completed Course 500 mg PO DAILY 7 days 7 tabs 0RF blood-glucose sensor ([employer]Style Pedro 3 Sensor device) Discontinued Reason: Insurance Denied As directed 2 ea 11RF E11.8 - Type 2 diabetes mellitus with unspecified complications metronidazole Discontinued Reason: Patient Completed Course 500 mg PO BID 14 tabs 0RF
[2025-03-10 15:30] VITALS: BP 132/74; PULSE 80; RESP 13; TEMP 36.5; O2SAT 99; BMI 30.6
--- OUTSIDE RECORDS SUMMARY | 2025-03-10 19:26 | XMS_ITS | Clinical Summary ---
Author Organization [facility] Address [address] [place] [address] Care Team Providers Care Unix Systems Administrator Name Role Phone Unavailable Primary Care Provider [...] of 2) 2014 COVID-19 Vaccine (3 - 2024-2 6 season) 2024 07/22/2020, 06/30/2020 Influenza (#1) 2024 04/05/2012 DTaP/Tdap/Td (2 - Td or Tdap) 01/16/2025 01/16/2015 RSV (1 - 1-dose 75+ series) 2039 HPV Vaccine (No Doses Required) Completed Hep A Aged Out No longer eligi [...]
== END 2025-03-10 16:03 | disposition home or self-care (01) ==
LOC: HO.HMCFM 15:27
PROVIDERS: PCP Nurse Practitioner Family; Visit Provider Nurse Practitioner Family
DX: E11.59 Type 2 diabetes mellitus with other circulatory complications (principal); E11.69 Type 2 diabetes mellitus with other specified complication; E11.8 Type 2 diabetes mellitus with unspecified complications; I15.2 Hypertension secondary to endocrine disorders; E78.5 Hyperlipidemia, unspecified; E66.9 Obesity, unspecified; E53.8 Deficiency of other specified B group vitamins; Z28.21 Immunization not carried out because of patient refusal